=== PATIENT | female | born 1995 | race Caucasian/White ===

== ENCOUNTER 2023-12-08 16:07 | Outpatient (OUT) | payer OTHER, SELFPAY ==
[2023-12-08 16:31] LABS: Basophils Percent Auto 0.4 % (0.2-2.0); Eosinophils Absolute Auto 0.2 10^3/uL (0.0-0.7); Eosinophils Percent Auto 2.8 % (0.9-7.0); Hematocrit 39.1 % (36.0-48.0); Hemoglobin 12.9 g/dL (12.0-16.0); Immature Granulocytes Abs Auto 0.02 10^3/uL (0.00-0.03); Immature Granulocytes Pct Auto 0.2 % (0.0-0.5); Lymphocytes Absolute Auto 1.6 10^3/uL (1.2-3.8); Lymphocytes Percent Auto 19.2 % (20.5-60.0); Mean Corpuscular Hemoglobin 28.5 pg (26.7-34.0); Mean Corpuscular Volume 86.3 fL (81.0-99.0); Mean Platelet Volume 10.7 fL (9.5-13.5); Monocytes Absolute Auto 0.6 10^3/uL (0.3-0.8); Monocytes Percent Auto 6.8 % (1.7-12.0); Neutrophils Percent Auto 70.6 % (43.0-75.0); Platelet Count 228 10^3/uL (150-450); Red Blood Count 4.53 10^6/uL (4.20-5.40); Red Cell Distribution Width 12.2 % (11.0-15.0); White Blood Count 8.5 10^3/uL (4.0-11.0)
[2023-12-08 16:58] LABS: HCG Quantitative <1 mIU/mL; Thyroid Stimulating Hormone 1.457 uIU/mL (0.358-3.740)
[2023-12-08 17:01] LABS: Estimated Average Glucose 105 mg/dL; Glycohemoglobin A1C 5.3 % (4.5-6.2)
[2023-12-08 17:17] LABS: Free T4 0.98 ng/dL (0.76-1.46)
[2023-12-10 08:10] LABS: FSH 4.5 mIU/mL (.); Luteinizing Hormone(LH) 4.7 mIU/mL (.)
[2023-12-15 01:07] LABS: DHEA, Serum 111 ng/dL (31-701)
== END 2023-12-08 16:08 | disposition home or self-care (01) ==
LOC: LAB 16:12
PROVIDERS: PCP Nurse Practitioner; Visit Provider Obstetrics & Gynecology
DX: Z01.419 Encounter for gynecological examination (general) (routine) without abnormal findings (principal); E34.9 Endocrine disorder, unspecified
CPT/HCPCS: 36415; 82626; 82627; 83001; 83002; 83036; 84439; 84443; 84702; 85025; G0145

== ENCOUNTER 2023-12-08 19:43 | Outpatient (REF) | payer OTHER, SELFPAY ==
[2023-12-12 14:09] LABS: Age Gdln ACOG Testing Note (.); IGP, rfx Aptima HPV ASCU Note (.)
== END 2023-12-08 19:44 | disposition home or self-care (01) ==
LOC: LAB 19:43
PROVIDERS: PCP Nurse Practitioner; Visit Provider Physician Assistant
DX: Z01.419 Encounter for gynecological examination (general) (routine) without abnormal findings (principal)
CPT/HCPCS: G0145

== ENCOUNTER 2024-03-24 12:43 | Outpatient (OUT) | payer OTHER, SELFPAY ==
--- OUTSIDE RECORDS SUMMARY | 2024-03-24 12:51 | XMS_ITS | CCD ---
Author Organization [facility] Inform ion Partnership [facility] Care Team Providers Care Base Ply Hand Name Role Phone bJ Llamas Unavailable Unavailable NONE, XXXX Unavailable Unavailable Jb Llamas Unavailable Unavailable NONE, XXXX Unavailable Unavailable Elle Ray Unavailable Antonella Petersen Unavailable REQUEST, DR STEIN LISTED Primary Care Unavaila nettie AYALA, DR VICKERS Attending Unavailable CHET, DR VICKERS Consulting Unavailable CHET, DR VICKERS Admitting Unavailable Unavailable Primary Care Provider UnavailROSA Aguilar Attending Unavailable LIBIA GUTHRIE Attending Unavailable LIBIA GUTHRIE Attending Unavailable Allergies Allergy Classification Reported Allergen(s) Allergy Type Date of Onset Reaction(s) Facility (2 sources) Penicillin V Drug Allergy [facility] Other (5 sources) Penicillins Propensity to adverse reactions 3 [facility] Healthcare (4 sources) Penicillin G Drug Allergy 4 [facility] Healthcare Medications Current Medications Medication Drug Class(es) Dates Sig (Normalized) Sig (Original) Ethinyl Estradiol / Ferrous fumarate / Norethindrone (7 sources) Estrogen Start: 12-08-2023 End: 12-07-2024 take 1 tablet by mouth in the morning norethindrone-ethin yl estradiol-iron (Lo Loestrin Fe) 1 MG-10 MCG / 10 MCG tablet Indications: Encounter for surveillance of contraceptive pills Take 1 tablet by mouth in the morning. 28 tablet 11 12/08/2023 12/07/2024 Active Start: 12-01-2023 End: 12-08-2023 take 1 tablet by mouth in the morning norethindrone-ethinyl estradiol-iron (Lo Loestrin Fe) 1 MG-10 MCG / 10 MCG tablet Indications: Encounter for surveillance of contraceptive pills Take 1 tablet by mouth in the morning. 28 tablet 3 12/01/2023 12/08/2023 Discontinued (Reorder) Start: 12-01-2023 End: 03-22-2024 take 1 tablet by mouth in the morning norethindrone-ethinyl estradiol-iron (Lo Loestrin Fe) 1 MG-10 MCG / 10 MCG tablet Indications: Encounter for surveillance of contraceptive pills Take 1 tablet by mouth in the morning. 28 tablet 3 12/01/2023 03/22/2024 Active methylPREDNISolone 4 mg oral tablet (3 sources) Corticosteroid Start: 05-28-2022 methylPREDNISolone 4 MG as directed Orally for daily dose take half with breakfast, half with dinner for 6 days May, Active omeprazole 20 mg delayed release oral capsule (5 sources) Proton Pump Inhibitor Start: 11-17-2023 End: 02-15-2024 take 1 capsule by mouth in the morning omeprazole (PriLOSEC) [address] capsule Indications: Gastro-esophageal reflux disease without esophagitis Take 1 capsule (20 mg) by mouth in the morning. 90 capsule 0 11/17/2023 02/15/2024 Active Completed/Discontinued Medications Medication Drug Class(es) Dates Sig (Normalized) Sig (Original) Dexamethasone (2 sources) Corticosteroid Start: 05-28-2022 DEXAMETHASONE May, 6 mg Problems Active Problems Problem Classification Problem Date Documented Date Episodic/Chronic Contraceptive and procreative management (2 sources) Oral contraception; Translations: [Encounter for surveillance of contraceptive pills] 12-08-2023 Episodic Esophageal disorders (10 sources) Gastroesophageal reflux disease without esophagitis; Translations: [Gastro-esophageal reflux disease without esophagitis] Onset: 11-17-2023 11-17-2023 Chronic Immunizations and screening for infectious disease (3 sources) Encounter for screening for human papillomavirus (HPV); Translations: [Exposure to sexually transmissible disorder] Onset: 09-02-2022 12-01-2023 Episodic Other female genital disorders (2 sources) Vaginal discharge; Translations: [Other specified noninflammatory disorders of vagina] 12-01-2023 Episodic Other screening for suspected conditions (not mental disorders or infectious disease) (4 sources) Encounter for screening for malignant neoplasm of cervix; Translations: [ENC SCREENING MALIG NEOPLASM CERV] Onset: 08-29-2022 Episodic Past or Other Problems Problem Classification Problem Date Documented Da te Episodic/Chronic Allergic reactions (1 source) Allergic contact dermatitis due to plants, except food Onset: 05-28-2022 Resolved: 05-28-2022 Episodic Results Test Name Value Interpretation Reference Range Facility URETHRITIS/DISCHARGE PLUS VA GINITIS (HTRX)on 12-10-2023 [facility]INAE 0 [facility] ATOPOBIUM VAGINAE Not detected [facility] BVAB 2,3 (BACTERIAL VAGINOSIS ASSOCIATED BACTERIA 2, 3); MOBILUNCUS SPP [address] [facility] BVAB 2,3 (BACTERIAL VAGINOSIS ASSOCIATED BACTERIA 2, 3); MOBILUNCUS SPP Not detected [facility] ROSALINDA ALBICANS, PARAPSILOSIS, TROPICALIS [address] [facility] ROSALINDA ALBICANS, PARAPSILOSIS, TROPICALIS Not detected [facility] ROS[facility]DA GL[facility]ATA 0 [facility] ROSALINDA GLABRATA Not detected [facility] ealthcare ROSALINDA KRUSEI 0 [facility] ROSALINDA KRUSEI Not detected [facility] CHLAMYDIA TRACHOMATIS [facility] CHLAMYDIA TRACHOMATIS Not detected [facility] GARDNERELLA VAGINALIS [address] [facility] GARDNERELLA VAGINALIS Not detected [facility] MEGASPHAERA (TYPES 1, 2) [address] [facility] MEGASPHAERA (TYPES 1, 2) Not detected [facility] MYCOPLASMA GENITALIUM [address] [facility] MYCOPLASMA GENITALIUM Not detected [facility] NEISSERIA GONORRHOEAE [address] [facility] NEISSERIA GONORRHOEAE Not detected [facility] TRICHOMONAS VAGINALIS [address] [facility] TRICHOMONAS VAGINALIS Not detected [facility] Health[facility] e ALL CBC WITH AUTO DIFFon BASOPHILS ABSOLUTE AUTO 0.[address] [facility] Basophils/100 WBC (Bld) 0.4 % 0.2 - 2.0 % [facility] Eosinophils/100 WBC (Bld) 2.8 % 0.9 - 7.0 % [facility] Erythrocyte distribution width (RBC) [Ratio] 12.2 % 11.0 - 15.0 % [facility] Hematocrit (Bld) [Volume fraction] 39.1 % 36.0 - 48.0 % [facility] Healthcar e Hemoglobin (Bld) [Mass/Vol] 12.9 g/dL 12.0 - 16.0 g/dL [facility] IMMATURE GRANULOCYTES ABS AUTO 0.02 [facility] Immature granulocytes/100 WBC (Bld) 0.2 % 0.0 - 0.5 % [facility] Interpretation and review of laboratory results Abnormal [facility] LYMPHOCYTES ABSOLUTE AUTO 1.6 [facility] Lymphocytes/100 WBC (Bld) 19.2 % Low 20.5 - 60.0 % [facility] MCH (RBC) [Entitic mass] 28.5 pg 26.7 - 34.0 pg [facility] MCHC (RBC) [Mass/Vol] 33.0 g/dL 29.9 - 35.2 g/dL [facility] MCV (RBC) [Entitic vol] 86.3 fL 81.0 - 99.[address] [facility] MONOCYTES ABSOLUTE AUTO 0.[address] [facility] Monocytes/100 WBC (Bld) 6.8 % 1.7 - 12.0 % [facility] NEUTROPHILS ABSOLUTE AUTO 6.[address] [facility] Neutrophils/100 WBC (Bld) 70.6 % 43.0 - 75.0 % [facility] Platelet mean volume (Bld) [Entitic vol] 10.7 fL 9.5 - 13.5 fL [facility] Healthc are [facility] EO # 0.2 [facility] PLT 228 [facility] RBC 4.53 [facility] WBC 8.5 [facility] PAP ACOG PANEL 2: 21 to 29on 09-06-2022 . . Normal [facility] Comment on above: Result Comment: Perf ormed at: BA Performed By: #### [id number] #### [facility] [address] [address] [address] Chloe Franklin Age Gdln ACOG Testing - Normal [facility] Comment on above: Performed By: #### [id number] #### [facility] [id number] Chloe Franklin DIAGNOSIS: Comment [facility] Comment on above: Result Comment: NEGA TIVE FOR INTRAEPITHELIAL LESION OR MALIGNANCY. Performed at: BA Performed By: #### [id number] #### [facility] [address] [address] [address] Chloe Franklin Methodology: Comment [facility] Comment on above: Result Comment: This liquid based ThinPrep(R) pap test was screened with the use of an image guided system. Performed at: WB Performed By: #### [id number] #### [facility] [address] [place] [address] Dr. Chloe Franklin Note: Comment Normal [facility] Comment on above: Result Comment: The Pap smear is a screening test designed to aid in the detection of premalignant and malignant conditions of the uterine cervix. It is not a diagnostic procedure and should not be used as the sole means of detecting cervical cancer. Both false-positive and false-negative reports do occur. . Performed at: WB Performed By: #### [id number] #### [facility] [address] [place] [address] Dr. Chloe Franklin Performed by: Comment Normal [facility] Comment on above: Result Comment: Carlton Cole, Small Craft Operator (ASCP) Performed at: BA Performed By: #### [id number] #### [facility] [address] [place] [address] Dr. Chloe Franklin Reflex Criteria: Comment Normal [facility] Comment on above: Result Comment: The HPV DNA reflex criteria were not met with this specimen result therefore, no HPV testing was performed. . Performed at: BA Performed By: #### [id number] #### [facility] [address] [place] [address] Dr. Chloe Franklin Specimen adequacy: Comment Normal [facility] Comment on above: Result Comment: Sati sfactory for evaluation. Endocervical and/or squamous metaplastic cells (endocervical component) are present. Performed at: BA Performed By: #### [id number] #### [facility] [address] [place] [address] Dr. Chloe Franklin Vital Signs Date Time Vital Sign Value Performing Clinician Facility 12-08-2023 15:32-0500 Body mass index (BMI) [Ratio] 25.25 kg/m2 Rosa CRENSHAW Work Phone: [facility] 12-08-2023 15:32-0500 Body weight 66.73 kg Rosa CRENSHAW Work Phone: [facility] 12-08-2023 15:32-0500 Diastolic blood pressure 74 mm[Hg] Rosa CRENSHAW Work Phone: [facility] 12-08-2023 15:32-0500 Systolic blood pressure 116 mm[Hg] Rosa CRENSHAW Work Phone: [facility] 05-28-2022 18:10-0400 Body height 162.56 cm Elle Ray Other [facility] Other 05-28-2022 18:10-0400 Body mass index (BMI) [Ratio] 24.89 kg/m2 Elle Ray Other [facility] Other 05-28-2022 18:10-0400 Body temperature 98.9 [degF] Elle Ray Other [facility] Other 05-28-2022 18:10-0400 Body weight 65.77 kg Elle Ray Other [facility] Other 05-28-2022 18:10-0400 Respiratory rate 18 /min Elle Ray Other [facility] Other 05-28-2022 18:10-0400 SaO2% (BldA) [Mass fraction] 97 % Elle Ray Other [facility] Other Encounters Encounter Date Encounter Type Care Provider Facility Start: 03-17-2024 End: 03-17-2024 ambulatory LIBIA AICHHOLZ Not Available Start: 01-29-2024 End: 01-29-2024 ambulatory LIBIA AICHHOLZ Not Available Start: 12-08-2023 End: 12-08-2023 ambulatory ROSA PEARL Not Available Start: 12-08-2023 End: 12-08-2023 Patient encounter procedure Rosa CRENSHAW Work Phone: [facility] Work Phone: Start: 12-08-2023 End: 12-08-2023 Periodic preventive med est patient 18-39 yrs Rosa CRENSHAW Work Phone: [facility] Comment on above: Well woman exam with routine gynecological exam; Vaginal discharge; STD exposure; Encounter for surveillance of contraceptive pills Start: 12-08-2023 [facility] Result Encounter Generic External Data Provider [facility] Unsolicited Start: 12-08-2023 [facility] Result Encounter Generic External Data Provider [facility] Unsolicited Start: 12-08-2023 External Result Encounter Rosa CRENSHAW Work Phone: [facility] Unsolicited Start: 12-05-2023 Chart abstracting Rosa CRENSHAW Work Phone: [facility] Start: 08-29-2022 End: 08-29-[address] NONE LISTED REQUEST Facility: Start: 06-08-2022 End: 06-08-2022 ambulatory Antonella Petersen Other [facility] Other Start: 06-08-2022 Telephone encounter Antonella Petersen [facility] Start: 05-28-2022 End: 05-28-2022 ambulatory Elle Ray Other [facility] Other Start: 05-28-2022 Office outpatient ne w 20 minutes Elle Ray [facility] Start: 12-02-2017 End: 12-03-2017 Ambulatory Jb Otilio Facility:[id number] Procedures Date Procedure Procedure Detail Performing Clinician Start: 12-08-2023 ALL CBC WITH AUTO DIFF Gab Sanderso DO Work Phone: Start: 12-08-2023 URETHRITIS/DISCHARGE PLUS VAGINITIS (HTRX) Rosa CRENSHAW Work Phone: Plan of Treatment Date Care Activity Detail Author Start: 12-08-2023 End: 12-08-2023 Patient encounter procedure 12/08/2023 3:00 PM EST Office Visit [facility] [address] [place] [id number] Rosa Pearl PA [address] [place] [address] Well woman exam with routine gynecological exam; Vaginal discharge; STD exposure [facility] Comment on above: Well woman exam with routine gynecological exam; Vaginal discharge; STD exposure CHLAMYDIA TRACHOMATI S (GENITO/STI) CHLAMYDIA TRACHOMATIS (GENITO/STI) Lab Routine STD exposure Ordered: 12/08/[address] [facility] Comment on above: Ordered: 12/08/2023 Cytology Cervical or vaginal smear or scraping study Pap Smear Pathology and Cytology Routine Well woman exam with routine gynecological exam Ordered: 12/08/[address] [facility] Comment on above: Ordered: 12/08/2023 Neisseria gonorrhoea e DNA [Presence] in Unspecified specimen by ANTHONY with probe detection Neisseria gonorrhea DNA probe, direct Lab Routine STD exposure Ordered: 12/08/[address] [facility] Comment on above: Ordered: 12/08/2023 SURESWAB(R) ADVANCED VAGINITIS PLUS, TMA SURESWAB(R) ADVANCED VAGINITIS PLUS, TMA Pathology and Cytology Routine Vaginal discharge Ordered: 12/08/[address] [facility] Work Phone: Comment on above: Ordered: 12/08/2023 Payers Date Payer Category Payer Medicaid [employer] [place] [employer] [id number] 2022-Present [address] [place] [address] [id number] 1995 Unknown [id number] 1997 Unknown [id number] 1997 Unknown [id number] 1997 Unknown [id number] 1959 Unknown [id number] Social History Date Type Detail Facility Start: 04-23-2023 End: 08-22-2023 Sex Assigned At [facility] [email or web address] Other Start: 04-23-2023 [facility] Start: 08-22-2023 End: 12-08-2023 Alcohol intake Lifetime non-drinker (finding) [facility] Start: 04-23-2023 End: 08-22-2023 History of Social function [facility] Start: 04-23-2023 Education 13 [facility] Start: 04-23-2023 Alcohol Comment caffeine:none [facility] Start: 1995 Sex Assigned At Female [facility] Start: 04-23-2023 Gender identity Identifies as female gender (finding) [facility] Healthcare History of Present illness Narrative 12-08-2023 DEN Patiño - 12/08/2023 3:00 PM EST Note Date & Type Note Facility 12-08-2023 History of Presen t illness Narrative Reason for Appointment: Patient ID: Thomas López is a 28 y.o. female who presents for Well Women Visit and STI Screening Patient presents today for Annual Exam appointment. Current Medications: has a current medication list which includes the following prescription(s): lo loestrin fe and omeprazole. Medical History: Active Ambulatory Problems Diagnosis Date Noted Gastroesophageal reflux disease without esophagitis 11/17/2023 Gastro-esophageal reflux disease without esophagitis 11/17/2023 Resolved Ambulatory Problems Diagnosis Date Noted No Resolved Ambulatory Problems Past Medical History: Diagnosis Date Dysfunctional uterine bleeding Hemorrhoids History of medical treatment Ovarian cyst Pelvic congestion Seasonal allergies Family History Problem Relation Name Age of Onset Cervical cancer Mother Bipolar disorder Father Mental illness Father Mental illness Sister Bipolar disorder Sister Bipolar disorder Brother Mental illness Brother Skin cancer Maternal Grandmother Thyroid disease Maternal Grandmother Eczema Maternal Grandfather Stroke Maternal Grandfather Social History Tobacco Use Smoking status: Never Smokeless tobacco: Not on file Substance Use Topics Alcohol use: Never Comment: caffeine:none Drug use: Never History reviewed. No pertinent surgical history. Allergies Allergen Reactions Penicillin G Other Reaction(s): unknown Penicillins Review of Systems: Review of Systems Constitutional: Negative. HENT: Negative. Eyes: Negative. Respiratory: Negative. Cardiovascular: Negative. Gastrointestinal: Negative. Genitourinary: Negative. Musculoskeletal: Negative. Skin: Negative. Neurological: Negative. All other systems reviewed and are negative. Hematological: Negative. Endocrine: Negative. Allergic/Immunologic: Negative. Objective Physical Exam Constitutional: Appearance: Normal appearance. She is well-developed. Genitourinary: Vulva normal. Right Adnexa: not tender and no mass present. Left Adnexa: not tender and no mass present. No cervical discharge. Breasts: Breasts are soft. Right: Normal. Left: Normal. HENT: Head: Normocephalic. Nose: Nose normal. Mouth/Throat: Mouth: Mucous membranes are moist. Cardiovascular: Rate and Rhythm: Normal rate and regular rhythm. Pulmonary: Effort: Pulmonary effort is normal. Breath sounds: Normal breath sounds. Abdominal: General: Bowel sounds are normal. There is no distension. Palpations: Abdomen is soft. Tenderness: There is no abdominal tenderness. There is no guarding or rebound. Musculoskeletal: General: No swelling. Normal range of motion. Cervical back: Normal range of motion. Right lower leg: No edema. Left lower leg: No edema. Neurological: General: No focal deficit present. Mental Status: She is alert and oriented to person, place, and time. Skin: General: Skin is warm and dry. Psychiatric: Mood and Affect: Mood normal. Behavior: Behavior normal. Vitals and nursing note reviewed. Exam conducted with a meter tester polyphase present. Vitals: Estimated body mass index is 25.25 kg/m as calculated from the following: Height as of 04/24/23: 5' 4 . Weight as of this encounter: 147 lb 1.9 oz. BP: 116/74 No LMP recorded. Assessment/Plan Encounter Diagnoses Name Primary? Well woman exam with routine gynecological exam Vaginal discharge STD exposure Encounter for surveillance of contraceptive pills Patient presents today for an annual exam. Patient states she is doing well and has no complaints. Pap was obtained without difficulty. Cultures obtained without difficulty Follow Up: Patient is to return in one year for annual unless needed otherwise. Documented by Radha Jameson LPN on behalf of: DEN Patiño documented in this encounter [facility] Evaluation note 05-28-2022 Note Date & Type Note Facility 05-28-2022 Evaluation note Encounter Date Diagnosis Assessment Notes May, Poison cecilio dermatitis (ICD-10 - L23.7) Decadron IM given in office today due to moderate nature of discomfort. Take medications as directed and start tomorrow. Complete all doses. Wash all belongings that came in contact with plant oils in diluted dishwashing liquid. May try to use Calamine lotion and OTC Zyrtec for symptom relief. Follow up with primary care provider or dermatology if symptoms do not improve or worsen with treatment [facility] [employer] Other Evaluation note Note Date & Type Note Facility Evaluation note No Information [facility] [employer] Other Evaluation note Note Date & Type Note Facility Evaluation note Diagnosis Well woman exam with routine gynecological exam Routine gynecological examination Vaginal discharge Leukorrhea, not specified as infective STD exposure Encounter for surveillance of contraceptive pills documented in this encounter [facility] Summary Purpose Family History No Family History Records FoundNo Family History Records FoundNo Family History Records Found Advance Directives No Advanced Directives Records FoundNo Advanced Directives Records FoundNo Advanced Directives Records Found Additional Source Comments INFORMATION SOURCE (unrecogn ized section and content) DATE CREATED AUTHOR 04/20/2018 [facility] DATE CREATED AUTHOR AUTHOR'S ORGANIZ ATION 09/06/2022 [facility] DATE CREATED AUTHOR AUTHOR'S ORGANIZ ATION 03/20/2024 [facility] EPIC REASON FOR VISIT (unrecogniz ed section and content) Reason Comments Well Women Visit STI Screening FOR RECORDS PERTAINING TO PATIENTS WHO ARE OR HAVE BEEN ENROLLED IN A CHEMICAL DEPENDENCY/SUBSTANCEABUSE PROGRAM, SOME INFORMATION MAY BE OMITTED. This clinical summary was aggregated from multiple sources. Caution should be exercised in using it in the provision of clinical care. This summary normalizes information from multiple sources, and as a consequence, information in this document may materially change the coding, format and clinical context of patient data. In addition, data may be omitted in some cases. CLINICAL DECISIONS SHOULD BE BASED ON THE PRIMARY CLINICAL RECORDS. [employer] provides no warranty or guarantee of the accuracy or completeness of information in this document.
--- NOTE | 2024-03-24 13:02 | XR_ITS ---
The [address] [address] Patient Name: SHERICE BLACKWELL MRN: [id number] date: 1995 Sex: F Assigned Patient Location: LAB Current Patient Location: LAB Accession/Order Number: [id number] Exam Date: 03/24/2024 13:05 Report Date: 03/24/2024 15:48 At the request of: LIBIA GUTHRIE Procedure: XR chest 2V EXAM: XR chest 2V HISTORY: Unintentional Weight Loss Of More Than 10 Pounds COMPARISON: 06/05/2021 TECHNIQUE: Upright PA and lateral chest x-ray FINDINGS: The heart is not enlarged and the vasculature is not distended. No acute infiltrate, effusion or pneumothorax is identified. The osseous structures are grossly intact. Nipple jewelry is now noted. XR/XR chest 2V IMPRESSION: No acute infiltrate or evidence of cardiac decompensation. The overall appearance of the chest is essentially unchanged. Electronically authenticated by: RUFINA DAMIAN Date: 03/24/2024 15:48
[2024-03-24 13:36] LABS: Basophils Percent Auto 0.4 % (0.2-2.0); Eosinophils Percent Auto 0.4 % (0.9-7.0); Hematocrit 41.6 % (36.0-48.0); Hemoglobin 13.5 g/dL (12.0-16.0); Lymphocytes Absolute Auto 1.2 10^3/uL (1.2-3.8); Lymphocytes Percent Auto 21.5 % (20.5-60.0); Mean Corpuscular HGB Conc 32.5 g/dL (29.9-35.2); Mean Corpuscular Hemoglobin 28.5 pg (26.7-34.0); Mean Corpuscular Volume 87.9 fL (81.0-99.0); Mean Platelet Volume 11.4 fL (9.5-13.5); Monocytes Absolute Auto 0.3 10^3/uL (0.3-0.8); Monocytes Percent Auto 4.7 % (1.7-12.0); Neutrophils Absolute Auto 4.1 10^3/uL (1.4-6.5); Platelet Count 241 10^3/uL (150-450); Red Blood Count 4.73 10^6/uL (4.20-5.40); Red Cell Distribution Width 12.9 % (11.0-15.0); White Blood Count 5.6 10^3/uL (4.0-11.0)
[2024-03-24 13:41] LABS: HCG Qualitative Urine* NEGATIVE (NEGATIVE); Internal Control Within Normal Limits
[2024-03-24 13:44] LABS: Bilirubin Urine NEGATIVE (NEGATIVE); Blood Urine NEGATIVE (NEGATIVE); Clarity Urine CLEAR (CLEAR); Color Urine LT. YELLOW (YELLOW); Glucose Urine UA NEGATIVE (NEGATIVE); Ketones Urine 15 mg/dL (NEGATIVE); Leukocyte Esterase Urine TRACE (NEGATIVE); Nitrite Urine NEGATIVE (NEGATIVE); Protein Urine NEGATIVE (NEG/TRACE); Urobilinogen Urine 0.2 EU/dL (0.2-1.0)
[2024-03-24 13:45] LABS: Urine Microscopic Indicated YES
[2024-03-24 13:48] LABS: Erythrocyte Sedimentation Rate 26 mm/hr (<=20)
[2024-03-24 14:08] LABS: Bacteria Urine NONE SEEN #/HPF (NONE SEEN); Mucus Urine NONE SEEN (NONE SEEN); RBC Urine NONE SEEN #/HPF (0-2); Squamous Epithelial Cell Urine FEW #/LPF (NONE/RARE)
[2024-03-24 15:11] LABS: Free T4 1.11 ng/dL (0.76-1.46)
[2024-03-24 15:22] LABS: Alanine Aminotransferase 20 U/L (14-59); Albumin Globulin Ratio 0.9; Albumin Level 4.3 g/dL (3.4-5.0); Alkaline Phosphatase 46 U/L (46-116); Anion Gap 13.4; Aspartate Amino Transferase 16 U/L (15-37); BUN Creatinine Ratio 10.8; Bilirubin Total 1.1 mg/dL (0.2-1.0); C Reactive Protein <0.50 mg/dL (<=0.50); Calcium 9.3 mg/dL (8.5-10.1); Chloride 99 mmol/L (98-107); Estimated GFR (African America >60 (>=60); Estimated GFR (Non-African Ame >60 (>=60); Free T3 2.51 pg/mL (2.18-3.98); Globulin 4.6 g/dL; Glucose 80 mg/dL (74-106); Potassium 3.4 mmol/L (3.5-5.1); Sodium 138 mmol/L (136-145); Thyroid Stimulating Hormone 1.198 uIU/mL (0.358-3.740); Total Protein 8.9 g/dL (6.4-8.2)
[2024-03-25 17:10] LABS: Thyroglobulin Antibody <1.0 IU/mL (0.0-0.9); Thyroid Peroxidase (TPO) Ab 16 IU/mL (0-34)
== END 2024-03-24 12:44 | disposition home or self-care (01) ==
LOC: LAB 12:45
PROVIDERS: PCP Nurse Practitioner; Visit Provider Nurse Practitioner
DX: R63.4 Abnormal weight loss (principal)
CPT/HCPCS: 36415; 71046; 80053; 81001; 84439; 84443; 84481; 84703; 85025; 85652; 86140; 86376; 86800

== ENCOUNTER 2024-05-14 15:42 | Outpatient (OUT) | payer OTHER, SELFPAY ==
--- OUTSIDE RECORDS SUMMARY | 2024-05-14 15:48 | XMS_ITS | CCD ---
Author Organization [facility] Care Team Providers Care Casting Wheel Operator Helper Name Role Phone Jb Llamas Unavailable Unavailable NONE, XXXX Unavailable [...] Facility (2 sources) Penicillin V Drug Allergy Automation [facility] [facility] Other (5 sources) Penicillins Propensity to adverse reactions 3 [facility] Healthcare (4 sources) Penicillin G Drug Allergy [address] [facility] Healthcare Medications Current Medications Medication Drug Class(es) [...] VA GINITIS (HTRX)on 12-10-2023 [facility] ATOPOBIUM VAGINAE Not detected [facility] BVAB 2,3 (BACTERIAL VAGINOSIS ASSOCIATED BACTERIA 2, 3); MOBILUNCUS SPP 0 [facility] BVAB 2,3 (BACTERIAL VAGINOSIS ASSOCIATED BACTERIA 2, 3); MOBILUNCUS SPP Not detected [facility] ROSALINDA ALBICANS, PARAPSILOSIS, TROPICALIS 0 [facility] ROSALINDA ALBICANS, PARAPSILOSIS, TROPICALIS Not detected [facility] ROSALINDA GLABRATA [address] [facility] Hea lthcare ROSALINDA GLABRATA Not detected [facility] ealthcare [facility] ROSALINDA KRUSEI Not detected [facility] CHLAMYDIA TRACHOMATIS 0 [facility] CHLAMYDIA TRACHOMATIS Not detected [facility] GARDNERELLA VAGINALIS 0 [facility] GARDNERELLA VAGINALIS Not detected [facility] MEGASPHAERA (TYPES 1, 2) 0 [facility] MEGASPHAERA (TYPES 1, 2) Not detected [facility] MYCOPLASMA GENITALIUM 0 [facility] MYCOPLASMA GENITALIUM Not detected [facility] NEISSERIA GONORRHOEAE 0 [facility] NEISSERIA GONORRHOEAE Not detected [facility] TRICHOMONAS VAGINALIS 0 [facility] TRICHOMONAS VAGINALIS Not detected [facility] e ALL CBC WITH AUTO DIFFon BASOPHILS ABSOLUTE AUTO 0.0 [facility] Basophils/100 WBC (Bld) 0.4 % 0.2 - 2.0 % [facility] Eosinophils/100 WBC (Bld) 2.8 % 0.9 - 7.0 % [facility] Erythrocyte distribution width (RBC) [Ratio] 12.2 % 11.0 - 15.0 % [facility] Hematocrit (Bld) [Volume fraction] 39.1 % 36.0 - 48.0 % [facility] Healthcar e Hemoglobin (Bld) [Mass/Vol] 12.9 g/dL 12.0 - 16.0 g/dL [facility] IMMATURE GRANULOCYTES ABS AUTO 0.02 [facility] Immature granulocytes/100 WBC (Bld) 0.2 % 0.0 - 0.5 % [facility] Interpretation and review of laboratory results Abnormal [facility] LYMPHOCYTES ABSOLUTE AUTO 1.6 [facility] Lymphocytes/100 WBC (Bld) 19.2 % Low 20.5 - 60.0 % [facility] MCH (RBC) [Entitic mass] 28.5 pg 26.7 - 34.0 pg [facility] MCHC (RBC) [Mass/Vol] 33.0 g/dL 29.9 - 35.2 g/dL [facility] MCV (RBC) [Entitic vol] 86.3 fL 81.0 - 99.0 fL [facility] MONOCYTES ABSOLUTE AUTO 0.6 [facility] Monocytes/100 WBC (Bld) 6.8 % 1.7 - 12.0 % [facility] NEUTROPHILS ABSOLUTE AUTO 6.0 [facility] Neutrophils/100 WBC (Bld) 70.6 % 43.0 - 75.0 % [facility] Platelet mean volume (Bld) [Entitic vol] 10.7 fL 9.5 - 13.[address] [facility] Healthc are [facility] EO # 0.2 [facility] PLT 228 [facility] RBC 4.53 [facility] WBC 8.5 [facility] PAP ACOG PANEL 2: 21 to 31on 09-06-2022 . . Normal [facility] Comment on above: Result Comment: Perf ormed at: BA Performed By: #### [id number] #### [facility] [address] [address] [address] Chloe Franklin Age Gdln ACOG Testing - Normal [facility] Comment on above: Performed By: #### [id number] #### [facility] [address] [address] [address] Chloe Franklin DIAGNOSIS: Comment Normal [facility] Comment on above: Result Comment: NEGA TIVE FOR INTRAEPITHELIAL LESION OR MALIGNANCY. Performed at: BA Performed By: #### [id number] #### [facility] [address] [address] [address] Chloe Franklin Methodology: Comment [facility] Comment on above: Result Comment: This liquid based ThinPrep(R) pap test was screened with the use of an image guided system. Performed at: WB Performed By: #### [id number] #### [facility] [address] [place] [address] Dr. Chloe Franklin Note: Comment Normal [facility] Comment on above: Result Comment: The Pap smear is a screening test designed to aid in the detection of premalignant and malignant conditions of the uterine cervix. It is not a diagnostic procedure and should not be used as the sole means of detecting cervical cancer. Both false-positive and false-negative reports do occur. . Performed at: WB Performed By: #### [id number] #### [facility] [address] [place] [address] Dr. Chloe Franklin Performed by: Comment Normal [facility] Comment on above: Result Comment: Carlton Cole, Street Photographer (ASCP) Performed at: BA Performed By: #### [id number] #### [facility] [address] [place] [address] Dr. Chloe Franklin Reflex Criteria: Comment Normal [facility] Comment on above: Result Comment: The HPV DNA reflex criteria were not met with this specimen result therefore, no HPV testing was performed. . Performed at: BA Performed By: #### [id number] #### [facility] [address] [place] [address] Dr. Chloe Franklin Specimen adequacy: Comment Normal [facility] Comment on above: Result Comment: Sati sfactory for evaluation. Endocervical and/or squamous metaplastic cells (endocervical component) are present. Performed at: BA Performed By: #### [id number] #### [facility] [address] [place] [address] Dr. Chloe Franklin Vital Signs Date Time Vital Sign Value Performing Clinician Facility 12-08-2023 15:32-0500 Body mass index (BMI) [Ratio] 25.25 kg/m2 Rosa CRENSHAW Work Phone: [facility] 12-08-2023 15:32-0500 Body weight 66.73 kg Rosa CRENSHAW Work Phone: [facility] 12-08-2023 15:32-0500 Diastolic blood pressure 74 mm[Hg] Rosa CRENSHAW Work Phone: [facility] 12-08-2023 15:32-0500 Systolic blood pressure 116 mm[Hg] Rosa CRENSHAW Work Phone: [facility] [employer] 05-28-2022 18:10-0400 Body height 162.56 cm Elle Ray Other [employer] Other 05-28-2022 18:10-0400 Body mass index (BMI) [Ratio] 24.89 kg/m2 Elle Ray Other [employer] Other 05-28-2022 18:10-0400 Body temperature 98.9 [degF] Elle Ray Other [employer] Other 05-28-2022 18:10-0400 Body weight 65.77 kg Elle Ray Other [employer] Other 05-28-2022 18:10-0400 Respiratory rate 18 /min Elle Ray Other [employer] Other 05-28-2022 18:10-0400 SaO2% (BldA) [Mass fraction] 97 % Elle Ray Other [employer] Other Encounters Encounter Date Encounter Type Care [...] 06-08-2022 End: 06-08-2022 ambulatory Antonella Petersen Other [employer] Other Start: 06-08-2022 Telephone encounter Antonella Petersen [facility] [address] Start: 05-28-2022 End: 05-28-2022 ambulatory Elle Ray Other [employer] Other Start: 05-28-2022 Office outpatient ne w 20 minutes Elle Ray [facility] Start: 12-02-2017 End: 12-03-2017 Ambulatory Jb Muriel Facility:[id number] Procedures Date Procedure Procedure Detail Performing Clinician Start: 12-08-2023 ALL CBC WITH AUTO DIFF Gab Chet DO Work Phone: Start: 12-08-2023 URETHRITIS/DISCHARGE PLUS VAGINITIS (HTRX) Rosa CRENSHAW Work Phone: Plan of Treatment Date Care Activity Detail Author Start: 12-08-2023 End: 12-08-2023 Patient encounter procedure 12/08/2023 3:00 PM EST Office Visit [facility] [address] [place] [id number] Rosa Pearl PA [address] [place] [address] Well woman exam with routine gynecological exam; Vaginal discharge; STD exposure [facility] OB Comment on above: Well woman exam with routine gynecological exam; Vaginal discharge; STD exposure CHLAMYDIA TRACHOMATI S (GENITO/STI) CHLAMYDIA TRACHOMATIS (GENITO/STI) Lab Routine STD exposure Ordered: 12/08/2023 [facility] Comment on above: Ordered: 12/08/2023 Cytology Cervical or vaginal smear or scraping study Pap Smear Pathology and Cytology Routine Well woman exam with routine gynecological exam Ordered: 12/08/2023 [facility] Comment on above: Ordered: 12/08/2023 Neisseria gonorrhoea e DNA [Presence] in Unspecified specimen by ANTHONY with probe detection Neisseria gonorrhea DNA probe, direct Lab Routine STD exposure Ordered: 12/08/2023 [facility] Comment on above: Ordered: 12/08/2023 SURESWAB(R) ADVANCED VAGINITIS PLUS, TMA SURESWAB(R) ADVANCED VAGINITIS PLUS, TMA Pathology and Cytology Routine Vaginal discharge Ordered: 12/08/2023 [facility] Work Phone: Comment on above: Ordered: 12/08/2023 Payers Date Payer Category Payer Medicaid [employer] [place] [employer] [id number] 2022-Present [address] [place] [address] [id number] 1997 Unknown [id number] 1997 Unknown [id number] 1997 Unknown [id number] 1997 Unknown [id number] 1959 Unknown [id number] Social History Date Type Detail Facility Start: 04-23-2023 End: 08-22-2023 Sex Assigned At [facility] Other Start: 04-23-2023 Tobacco smoking stat [facility] Never smoked tobacco [facility] Start: 08-22-2023 End: 12-08-2023 Alcohol intake Lifetime non-drinker (finding) [facility] Start: 04-23-2023 End: 08-22-2023 History of Social function [facility] Start: 04-23-2023 Education [facility] Start: 04-23-2023 Alcohol Comment caffeine:none [facility] Start: 1995 Sex Assigned At Female [facility] Start: 04-23-2023 Gender identity Identifies as female gender (finding) [facility] History of Present illness Narrative 12-08-2023 DEN [...] nursing note reviewed. Exam conducted with a oncology admin present. Vitals: Estimated body mass index is [...] do not improve or worsen with treatment [place] [facility] Other Evaluation note Note Date & Type Note Facility Evaluation note No Information [facility] [employer] Other Evaluation note Note Date & Type Note Facility Evaluation note Diagnosis Well woman exam with routine gynecological exam Routine gynecological examination Vaginal discharge Leukorrhea, not specified as infective STD exposure Encounter for surveillance of contraceptive pills documented in this encounter [facility] Healthcare Summary Purpose Family History No Family History Records FoundNo Family History Records FoundNo Family History Records Found Advance Directives No Advanced Directives Records FoundNo Advanced Directives Records FoundNo Advanced Directives Records Found Additional Source Comments INFORMATION SOURCE (unrecogn ized section and content) DATE CREATED AUTHOR [facility]/20/2018 [facility] DATE CREATED AUTHOR AUTHOR'S ORGANIZ ATION 09/06/2022 [facility] DATE CREATED AUTHOR AUTHOR'S ORGANIZ ATION 03/20/2024 [facility] Specialists EPIC REASON FOR VISIT (unrecogniz ed [...] BE BASED ON THE PRIMARY CLINICAL RECORDS. [facility] [employer] provides no warranty or guarantee of the accuracy or completeness of information in this document.
[2024-05-14 16:41] LABS: Alanine Aminotransferase 21 U/L (14-59); Albumin Globulin Ratio 0.8; Albumin Level 3.5 g/dL (3.4-5.0); Alkaline Phosphatase 45 U/L (46-116); Anion Gap 9.4; Aspartate Amino Transferase 19 U/L (15-37); BUN Creatinine Ratio 13.1; Bilirubin Total 0.6 mg/dL (0.2-1.0); Calcium 8.8 mg/dL (8.5-10.1); Carbon Dioxide 29.5 mmol/L (21.0-32.0); Chloride 103 mmol/L (98-107); Estimated GFR (African America >60 (>=60); Estimated GFR (Non-African Ame >60 (>=60); Globulin 4.2 g/dL; Glucose 83 mg/dL (74-106); Potassium 3.9 mmol/L (3.5-5.1); Sodium 138 mmol/L (136-145); Total Protein 7.7 g/dL (6.4-8.2)
== END 2024-05-14 15:43 | disposition home or self-care (01) ==
LOC: LAB 15:43
PROVIDERS: PCP Nurse Practitioner; Visit Provider Nurse Practitioner
DX: R77.9 Abnormality of plasma protein, unspecified (principal)
CPT/HCPCS: 36415; 80053

== ENCOUNTER 2025-06-01 20:01 | Outpatient (REF) | payer MEDICAID, SELFPAY ==
--- OUTSIDE RECORDS SUMMARY | 2025-06-01 14:00 | XMS_ITS | Encounter Summary ---
Author Organization [facility] Address [address] [place] [address] Care Team Providers Care Bank Officer Name Role Phone Mika Pickard MD Primary Care Provider [phone] Shiela Arrington NP Unavailable [phone] Rosa Vanegas Unavailable Reason for Visit * Reason Comments Gynecologic Exam Encounter Details Date Type Department Care Team (Late st Contact Info) Description 06/01/2025 2:00 PM EDT Office Visit [facility] [address] [address] Rosa Vanegas PA [address] [place], [place] [id number] Well woman exam with routine gynecological exam; Screen for STD (sexually transmitted disease); Uses control Social History Tobacco Use Types Packs/Day Years Used Date Smoking Tobacco: Never Alcohol Use Standard Drinks/Week Comments Never 0 (1 standard drink = 0.6 oz pur e alcohol) caffeine:none B1300 Health Literacy Answer Date Recor ded How often do you need to hav e someone help you when you read instructions, pamphlets, or other written material from your doctor or pharmacy? Never 03/16/2025 Humiliation, Afraid, Rape, and Kick questionnair e Answer Date Recorded Within the last year, have y ou been afraid of your partner or ex-partner? Patient declined 03/16/2025 Within the last year, have y ou been humiliated or emotionally abused in other ways by your partner or ex-partner? Patient declined 03/16/2025 Within the last year, have y ou been kicked, hit, slapped, or otherwise physically hurt by your partner or ex-partner? Patient declined 03/16/2025 Within the last year, have y ou been raped or forced to have any kind of sexual activity by your partner or ex-partner? No 03/16/2025 Social Connection and Isolation Panel [NHANES] A nswer Date Recorded In a typical week, how many times do you talk on the phone with family, friends, or neighbors? Once a week 03/16/20 How often do you get togethe r with friends or relatives? Once a week 03/16/2025 How often do you attend [facility] or protestant services? Patient declined 03/16/2025 Do you belong to any clubs o r organizations such as lutheran groups, unions, fraternal or athletic groups, or school groups? Yes 03/16/2025 How often do you attend meet ings of the clubs or organizations you belong to? 1 to 4 times per year 03/16/2025 Are you , , di vorced, , never , or living with a partner? 03/16/2025 AUDIT-C Answer Date Recorded Q1: How often do you have a drink containing alc ohol? Monthly or less 03/16/2025 Q2: How many drinks containi ng alcohol do you have on a typical day when you are drinking? 3 or 4 03/16/2025 Q3: How often do you have si x or more drinks on one occasion? Less than monthly 03/16/2025 Overall Financial Resource Strain (CARDIA) Answe r Date Recorded How hard is it for you to pa y for the very basics like food, housing, medical care, and heating? Somewhat hard 03/16/2025 PHQ-2 Answer Date Recorded Patient Health Questionnaire-2 Score 2 01/29/2024 [facility] [place] [facility] Occup[facility] ional Health - Occupational Stress Questionnaire Answer Date Recorded Do you feel stress - tense, restless, nervous, or anxious, or unable to sleep at night because your mind is troubled all the time - these days? Rather much 03/16/2025 Exercise Vital Sign Answer Date Recorde d On average, how many days pe r week do you engage in moderate to strenuous exercise (like a brisk walk)? 2 days 03/16/2025 On average, how many minutes do you engage in exercise at this level? 90 min 03/16/2025 Hunger Vital Sign Answer Date Recorded Within the past 12 months, y ou worried that your food would run out before you got the money to buy more. Never true 03/16/20 25 Within the past 12 months, t he food you bought just didn't last and you didn't have money to get more. Never true 03/16/2025 PRAPARE - Transportation Answer Date Re corded In the past 12 months, has l ack of transportation kept you from medical appointments or from getting medications? No 02/25 In the past 12 months, has l ack of transportation kept you from meetings, work, or from getting things needed for daily living? No 03/16/2025 Housing Stability Vital Sign Answer Van e Recorded In the last 12 months, was t here a time when you were not able to pay the mortgage or rent on time? Yes 01/28/2024 In the last 12 months, how many places have you lived? 1 01/28/2024 In the last 12 months, was t here a time when you did not have a steady place to sleep or slept in a group home (including now)? No 01/28/2024 Housing Stability Vital Sign Answer Van e Recorded In the last 12 months, was t here a time when you were not able to pay the mortgage or rent on time? No 03/16/2025 Number of Times Moved in the Last Year Not on fi le 03/16/2025 At any time in the past [address] [facility], were you homeless or living in a group home (including now)? No 03/16/2025 Education Answer Date Recorded What is the highest level of school you have completed or the highest degree you have received? High school graduate 04/23/2023 Comments No Sex and Gender Information Value Date Recorded Sex Assigned at Female 04/23/2023 12:37 PM EDT Legal Sex Female 7:07 PM EDT Gender Identity Female 04/23/2023 12:37 PM EDT Sexual Orientation Not on file Occupation Industry Job Start Date Job End Date Cook Not on file Not on file Not on file documented as of this encounter Last Filed Vital Signs Vital Sign Reading Time Taken Comments Blood Pressure 110/60 06/01/2025 2:17 PM EDT Pulse - - Temperature - - Respiratory Rate - - Oxygen Saturation - - Inhaled Oxygen Concentration - - Weight 55.3 kg (122 lb) 06/01/2025 2:17 PM EDT Height 152.4 cm (5') 06/01/2025 2:17 PM EDT Body Mass Index 23.83 06/01/2025 2:17 PM EDT documented in this encounter Plan of Treatment Upcoming Encounters Date Type Department Care Team (Late st Contact Info) Description 06/06/2026 10:00 AM EDT Procedure Visit [facility] [address] [phone] Rosa Vanegas PA [address] [place] [address] Scheduled Orders Name Type Priority Associated Diagnoses Orde r Schedule Pap Smear Pathology and Cytology Routine Well woman exam with routine gynecological exam Ordered: 06/01/2025 SURESWAB(R) ADVANCED VAGINITIS PLUS, TMA Pathology and Cytology Routine Screen for STD (sexually transmitted disease) Ordered: 06/01/2025 CHLAMYDIA TRACHOMATIS (GENITO/STI) Lab Routine Screen for STD (sexually transmitted disease) Ordered: 06/01/2025 Neisseria gonorrhea DNA probe, direct Lab Routine Screen for STD (sexually transmitted disease) Ordered: 06/01/2025 documented as of this encounter Procedures Procedure Name Priority Date/Time Associated Diagnosis Comments POCT , URINE Routine 06/01/2025 2:55 PM EDT Uses control documented in this encounter Results * POCT , urine manually resulted (06/01/2025 2:55 PM EDT) Preg Test, Ur Negative Negative Urine 06/01/2025 2:55 PM EDT Rosa CRENSHAW POINT OF CARE TEST ENTER/EDIT OR DERABLES Final Result documented in this encounter Visit Diagnoses Diagnosis Well woman exam with routine gynecological exam Routine gynecological examination Screen for STD (sexually transmitted disease) Screening examination for venereal disease Uses control documented in this encounter Care Teams Bank Officer Relationship Specialty Start Date End Date Mika Pickard MD [address] [place] [address] PCP - General Family Medicine 01/29/24 Rosa Vanegas PA [address] [place] [address] [place] [address] PCP - [facility] 10/27/24 Shiela Arrington NP [address] [place] [address] Nurse Practitioner Family Medicine 01/29/24 documented as of this encounter
--- OUTSIDE RECORDS SUMMARY | 2025-06-01 20:05 | XMS_ITS | Patient Health Record ---
Author Organization [facility] vices Address [address] [place], [place] [id number] Support Name Relationship Address Phone Chivo Barbour Emergency Contact , [facility] Thomas López Guarantor Unknown [phone] Reason For Referral No Information Plan Of Treatment No Information Insurance Providers Payer Name Payer Address Payer Phone Subscriber Number Group Number Insured Name Patient Relationship to Insured Coverage Start Date Coverage End Date [facility] [address] [place] [address] [id number] Thomas López Self - patient is the insured DMedicaid [facility] after [employer] [address] [place], [place] [id number] Thomas López Self - patient is the insured 3
--- OUTSIDE RECORDS SUMMARY | 2025-06-01 20:05 | XMS_ITS | Encounter Summary ---
Author Organization [facility] Address [address] [place] [address] Care Team Providers Care Stockroom Clerk Name Role Phone Mika Pickard MD Primary Care Provider [phone] Shiela Arrington NP Unavailable [phone] Rosa Vanegas Unavailable Shiela Arrington NP Unavailable [phone] Rosa Vanegas Unavailable Reason for Visit * Reason Comments Med Refill Encounter Details Date Type Department Care Team (Late st Contact Info) Description 05/18/2024 Refill [facility] [address] [place] [address] Shiela Arrington NP [address] [place] [address] Social History Tobacco Use Types Packs/Day Years Used Date Smoking Tobacco: Never Alcohol Use Standard Drinks/Week Comments Never 0 (1 standard drink = 0.6 oz pur e alcohol) caffeine:none Social Connection and Isolation Panel [NHANES] A nswer Date Recorded In a typical week, how many times do you talk on the phone with family, friends, or neighbors? Twice a week 01/28/20 How often do you get togethe r with friends or relatives? Never 01/28/2024 How often do you attend [facility] or [facility] services? 1 to 4 times per year 01/28/2024 Do you belong to any clubs o r organizations such as yazidi groups, unions, fraternal or athletic groups, or school groups? Patient declined 01/28/2024 How often do you attend meet ings of the clubs or organizations you belong to? Patient declined 01/28/2024 Are you , , di vorced, , never , or living with a partner? 01/28/2024 AUDIT-C Answer Date Recorded Q1: How often do you have a drink containing alc ohol? Monthly or less 01/28/2024 Q2: How many drinks containi ng alcohol do you have on a typical day when you are drinking? 3 or 4 01/28/2024 Q3: How often do you have si x or more drinks on one occasion? Less than monthly 01/28/2024 Overall Financial Resource Strain (CARDIA) Answe r Date Recorded How hard is it for you to pa y for the very basics like food, housing, medical care, and heating? Not very hard 01/28/2024 PHQ-2 Answer Date Recorded Patient Health Questionnaire-2 Score 2 01/29/2024 Exercise Vital Sign Answer Date Recorde d On average, how many days pe r week do you engage in moderate to strenuous exercise (like a brisk walk)? 2 days 01/28/2024 On average, how many minutes do you engage in exercise at this level? 20 min 01/28/2024 Hunger Vital Sign Answer Date Recorded Within the past 12 months, y ou worried that your food would run out before you got the money to buy more. Patient declined Within the past 12 months, t he food you bought just didn't last and you didn't have money to get more. Never true 12/2023 PRAPARE - Transportation Answer Date Re corded In the past 12 months, has l ack of transportation kept you from medical appointments or from getting medications? No 12/2023 In the past 12 months, has l ack of transportation kept you from meetings, work, or from getting things needed for daily living? No 01/28/2024 Housing Stability Vital Sign Answer [...] place to sleep or slept in a nursing home (including now)? No 01/28/2024 Education Answer Date Recorded What is the highest level of school you have completed or the highest degree you have received? 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 Not on file documented as of this encounter Plan of Treatment Upcoming Encounters Date Type Department Care Team (Late st Contact Info) Description 06/06/2026 10:00 AM EDT Procedure Visit [facility] [address] [facility] [place] [address] Rosa Vanegas PA [address] [facility] [place] [address] documented as of this encounter Visit Diagnoses Not on filedocumented in this encounter Care Teams Stockroom Clerk Relationship Specialty Start Date End Date Mika Pickard MD [address] [place] [address] PCP - General Family Medicine 01/29/24 Rosa Vanegas PA [address] [place] [address] [place] [address] PCP - [facility] 04/26/24 Shiela Arrington NP [address] [place] [address] PCP - [facility] 07/27/2410/26 Rosa Vanegas PA [address] [place] [address] [place] [address] [facility] - [facility] 10/27/24 Shiela Arrington NP [address] [place] [address] Nurse Practitioner Family Medicine 01/29/24 documented as of this encounter
--- OUTSIDE RECORDS SUMMARY | 2025-06-01 20:05 | XMS_ITS | Clinical Summary ---
Author Organization [facility] Address [id number] [address] [place] [address] Care Team Providers Care Oracle Business Analyst Name Role Phone No Pcp, No Pcp Primary Care Provider Unavailabl e Allergies No known active allergies Medications vit calc,iron,folic ( VITAMIN ORAL) Take 1 tablet by mouth daily. 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 06/02/2019 Family History Medical History Relation Name Comments Mental illness Father bipolar Hypertension Maternal Grandfather Stroke Maternal Grandfather Thyroid disease Maternal Grandmother Cancer Mother cervical Mental illness Sister Relation Name Status Comments Father Maternal Grandfather Maternal Grandmother Mother Sister Social History Tobacco Use Types Packs/Day Years Used Date Smoking Tobacco: Never Smokeless Tobacco: Never Alcohol Use Standard Drinks/Week Comments Not Currently 0 (1 standard drink = 0.6 oz pur e alcohol) Childcare Answer Date Recorded Childcare Unknown 04/07/2019 Employment Answer Date Recorded Employment Unknown 04/07/2019 Purpose - Life Answer Date Recorded Purpose and direction in life Unknown Comments No Sex and Gender Information Value Date Recorded Sex Assigned at Not on file Legal Sex Female 11:52 AM EDT Gender Identity Not on file Sexual Orientation Not on file Last Filed Vital Signs Vital Sign Reading Time Taken Comments Blood Pressure 113/60 06/02/2019 8:50 AM EDT Pulse 76 06/02/2019 8:50 AM EDT Temperature - - Respiratory Rate - - Oxygen Saturation - - Inhaled Oxygen Concentration - - Weight 57.6 kg (127 lb) 05/28/2019 2:19 PM EDT Height 162.6 cm (5' 4 ) 05/28/2019 2:19 PM EDT Body Mass Index 21.8 05/28/2019 2:19 PM EDT Plan of Treatment Health Maintenance Due Date Last Done Comments Depression Screening 2009 Tobacco Screening 2009 Adult BMI Screening 2015 DTaP,Tdap and Td Vaccines (1 - Tdap) 01/26/2016 Pap Smear 2018 Influenza Vaccine 06/27/2025 Medical Devices Not on file Insurance [place] [employer] Care Teams Oracle Business Analyst Relationship Specialty Start Date End Date No Pcp, No Pcp JORGE LUIS Parkinson [id number] PCP - General Family Medicine 06/02/19
--- OUTSIDE RECORDS SUMMARY | 2025-06-01 20:06 | XMS_ITS | Encounter Summary ---
Author Organization [facility] Address [address] [place] [address] Care Team Providers Care Pt Sitter Name Role Phone Mika Pickard MD Primary Care Provider [phone] Shiela Arrington NP Unavailable [phone] Rosa Vanegas Unavailable Shiela Arrington SIGN PAINTER HELPER Unavailable [phone] Rosa Vanegas Unavailable Reason for Visit * Reason Comments Med Refill Encounter Details Date Type Department Care Team (Late st Contact Info) Description 02/20/2024 Refill [facility] [address] [place] [address] Shiela Arrington NP [address] [place] [address] URI, acute Social History Tobacco Use Types Packs/Day Years [...] Never 01/28/2024 How often do you attend [facility] or judaism services? 1 to 4 times per year 01/28/2024 Do you belong to any clubs o r organizations such as jain groups, unions, fraternal or athletic groups, or [...] place to sleep or slept in a halfway (including now)? No 01/28/2024 Education Answer Date [...] on file documented as of this encounter Miscellaneous Notes * Telephone Encounter - Shiela Arrington NP - 02/22/2024 7:27 AM EDT This was for an acute diagnosis, not a maintenance medication documented in this encounter Plan of Treatment Upcoming Encounters Date Type Department Care Team (Late st Contact Info) Description 06/06/2026 10:00 AM EDT Procedure Visit [facility] [address] [facility] [place] [address] Rosa Vanegas PA [address] [facility] [place] [place] [address] documented as of this encounter Visit Diagnoses Diagnosis URI, acute Acute upper respiratory infections of unspecified site documented in this encounter Care Teams Pt Sitter Relationship Specialty Start Date End Date Mika Pickard MD [address] [place] [address] PCP - General Family Medicine 01/29/24 Rosa Vanegas PA [address] [facility] [place] [place] [address] PCP - [facility] 04/26/24 Shiela Arrington NP [address] [place] [address] [facility] 07/27/2410/26 Rosa Vanegas PA [address] [place] [address] [place] [address] PCP [facility] 10/27/24 Shiela Arrington NP [address] [place] [address] Nurse Practitioner Family Medicine 01/29/24 documented as of this encounter
--- OUTSIDE RECORDS SUMMARY | 2025-06-01 20:06 | XMS_ITS | Encounter Summary ---
Author Organization [facility] Address [address] [facility] [place] [address] Care Team Providers Care Marketing Technology Specialist Name Role Phone Mika Pickard MD Primary Care Provider [phone] Shiela Arrington NP Unavailable [phone] Rosa Vanegas Unavailable Encounter Details Date Type Department Care Team (Late st Contact Info) Description 06/01/2025 Bamboo flowsheet [facility] [address] [place] [address] Rosa Vanegas PA [address] [facility] [address] [place], [id number] Social History Tobacco Use Types Packs/Day Years [...] week 03/16/2025 How often do you attend chur ch or yazdanism services? Patient declined 03/16/2025 Do you belong to any clubs o r organizations such as gnosticist groups, unions, fraOpsens or athletic groups, or school groups? Yes [...] Recorded Patient Health Questionnaire-2 Score 2 01/29/2024 [facility] - Occupational Stress Questionnaire Answer [...] place to sleep or slept in a fci (including now)? No 01/28/2024 Housing Stability Vital Sign Answer Van e Recorded In the last 12 months, was t here a time when you were not able to pay the mortgage or rent on time? No 03/16/2025 Number of Times Moved in the Last Year Not on fi le 03/16/2025 At any time in the past 12 m [facility], were you homeless or living in a fci (including now)? No 03/16/2025 Education Answer Date [...] EDT Procedure Visit [facility] [address] [place] [address] Rosa Vanegas PA [address] [facility] [place] [address] documented as of this encounter Visit Diagnoses Not on filedocumented in this encounter Care Teams Marketing Technology Specialist Relationship Specialty Start Date End Date Mika Pickard MD [address] [place] [address] PCP - General Family Medicine 01/29/24 Rosa Vanegas PA [address] [facility] [place] [address] PCP - [facility] 10/27/24 Shiela Arrington NP [address] [place] [address] Nurse Practitioner Family Medicine 01/29/24 documented as of this encounter
--- OUTSIDE RECORDS SUMMARY | 2025-06-01 20:06 | XMS_ITS | Encounter Summary ---
Author Organization [facility] Address [address] [place] [address] Care Team Providers Care Fitting Room Inspector Name Role Phone Mika Pickard MD Primary Care Provider [phone] Shiela Arrington NP Unavailable [phone] Rosa Vanegas Unavailable Shiela Arrington NP Unavailable [phone] Rosa Vanegas Unavailable Encounter Details Date Type Department Care Team (Late st Contact Info) Description 03/26/2024 Orders Only [facility] [address] [place] [address] Shiela Arrington NP [address] [place] [address] Elevated serum protein level (Primary Dx); Yeast infection Social History Tobacco Use Types Packs/Day Years [...] Never 01/28/2024 How often do you attend [facility] or druze services? 1 to 4 times per year 01/28/2024 Do you belong to any clubs o r organizations such as mandaen groups, unions, fraternal or athletic groups, or [...] place to sleep or slept in a correction (including now)? No 01/28/2024 Education Answer Date [...] Procedure Visit [facility] [address] [facility] [place] [address] Rosa Vanegas PA [address] [facility] [place] [address] Scheduled Orders Name Type Priority Associated Diagnoses Orde r Schedule Comprehensive metabolic panel Lab Routine Elevated serum protein level Expected: 04/09/2024 (Approximate), Expires: 03/26/2025 documented as of this encounter Visit Diagnoses Diagnosis Elevated serum protein level- Primary Yeast infection documented in this encounter Care Teams Fitting Room Inspector Relationship Specialty Start Date End Date Mika Pickard MD [address] [place] [address] PCP - General Family Medicine 01/29/24 Rosa Vanegas PA [address] [place] [address] PCP - [facility] 04/26/24 Shiela Arrington NP [address] [place] [phone] [facility] - [facility] 07/27/2410/26 Rosa Vanegas PA [address] [place] [address] [place] [address] [facility] 10/27/24 Shiela Arrington NP [address] [place] [address] Nurse Practitioner Family Medicine 01/29/24 documented as of this encounter
--- OUTSIDE RECORDS SUMMARY | 2025-06-01 20:06 | XMS_ITS | Clinical Summary ---
Author Organization [facility] Address [address] [place] [address] Care Team Providers Care Weather Strip Mechanic Name Role Phone Mika Pickard MD Primary Care Provider [phone] Shiela Arrington NP Unavailable [phone] Rosa Vanegas Unavailable Allergies Active Allergy Reactions Criticality Noted Date Comments Penicillin G 12/08/2023 Other Reaction(s): unknown Penicillins 04/24/2023 Medications omeprazole (PriLOSEC) [address] capsuleIndications :Gastroesophageal reflux disease without esophagitis Take 1 capsule (20 mg) by mouth in the morning. Take before meals. Do not crush or chew.. 30 capsule 1 4 Active Lo Loestrin Fe 1 MG-10 MCG / 10 MCG tabletIndications: Encounter for surveillance of contraceptive pills TAKE 1 TABLET BY MOUTH EVERY DAY IN THE MORNING 28 tablet 3 5 Active lamoTRIgine (LaMICtal) 25 MG tabletIndications: Mood disorder 1 pill at bedtime for 2 weeks, then increase to 2 pills at bedtime 60 tablet 1 5 Active medroxyPROGESTERon e (Depo-Provera) 150 MG/ML injectionIndicatio ns:Uses control Inject 1 mL (150 mg) into the shoulder, thigh, or buttocks every 3 (three) months 1 mL 5 Active Active Problems Problem Noted Date Diagnosed Date Mood disorder 03/23/2025 Assessment & Plan (03/23/2025 2:44 PM EDT): Start lamictal Discussed red flag, and rash Fu in 6 weeks MDQ=negative PHQ 9=9 GAD7=19 Elevated serum protein level 03/26/2024 Unintentional weight loss of more than 10 pounds 03/17/2024 Assessment & Plan (03/17/2024 5:04 PM EDT): Will check labs and CXR, however I do suspicion this is more anxiety related Will cont with work up SOWMYA (generalized anxiety disorder) 03/17/2024 Assessment & Plan (03/17/2024 5:04 PM EDT): Start buspar 5mg BID Fu in 3-4 weeks Check labs Abnormal vaginal bleeding 01/29/2024 Menorrhagia with irregular cycle 01/29/2024 Pelvic congestion syndrome 01/29/2024 Attention-deficit hyperactivity disorder, combin ed type 01/29/2024 Gastroesophageal reflux disease without esophagi tis 11/17/2023 Assessment & Plan (03/17/2024 5:03 PM EDT): Does have hx of this, concern with stressors and weight loss possible ulcer Will start back on PPI Check labs Resolved Problems Problem Noted Date Diagnosed Date Resolved Date Yeast infection 03/26/2024 11/10/2024 URI, acute 01/29/2024 11/10/2024 Assessment & Plan (01/29/2024 10:52 AM EDT): Symptoms over 3 days, at this point we discussed testing for COVID and flu, she declined as it would not change my treatment plan at this point Fluids, rest, OCT mucinex DM, atb , steroids, as well as inhaler Fu if not better Gastro-esophageal reflux dis ease without esophagitis 11/17/2023 01/29/2024 Encounters Date Type Department Care Team Description 06/01/2025 2:00 PM EDT Office Visit [facility] [address] [facility] [facility] [address] Rosa Vanegas PA Well woman exam with routine gynecological exam; Screen for STD (sexually transmitted disease); Uses control 06/01/2025 Bamboo flowsheet [facility] [address] [place] [address] [place] [address] Rosa Vanegas PA 03/23/2025 1:20 PM EDT Office Visit [facility] [address] [place] [address] Shiela Arrington NP Mood disorder (Primary Dx); Unintentional weight loss of more than 10 pounds; Elevated serum protein level 03/23/2025 Bamboo flowsheet [facility] [address] [place] [address] Shiela Arrington NP 03/16/2025 Travel from Last 3 Months Immunizations Immunization Administration Dates Next Due DTaP, Unspecified 02/04/2002, 8,1997,06/08,1997 HPV, Quadrivalent 10/11/2013,03/18/2013 Hep A, ped/adol, 2 dose 10/11/2013,03/18/2013 Hep B, Adolescent or Pediatric 1997,1996 HiB, unspecified 06/29/1998,1997, 7 Hib / Hep B 1997 IPV 02/04/2002 Influenza, injectable, quadr ivalent, preservative free 07/27/2023,01/30/2023,07/14/2020 MMR 02/04/2002,03/16/1998 Meningococcal MCV4P 10/11/2013 OPV 03/16/1998,1997,1997 Tdap 02/24/2013 Varicella 07/14/2020,03/16/1998 Family History Medical History Relation Name Comments Bipolar disorder Brother Mental illness Brother Bipolar disorder Father Mental illness Father Eczema Maternal Grandfather Stroke Maternal Grandfather Skin cancer Maternal Grandmother Thyroid disease Maternal Grandmother Cervical cancer Mother Bipolar disorder Sister Mental illness Sister Relation Name Status Comments Brother Father Alive Maternal Grandfather Maternal Grandmother Mother Alive Paternal Grandfather Alive Paternal Grandmother Alive Sister Son 1 Alive Son 2 Alive Social History Tobacco Use Types Packs/Day Years Used Date Smoking Tobacco: Never Tobacco Cessation:Counseling Given: Not Answered Alcohol Use Standard Drinks/Week Comments Never 0 [...] 03/16/2025 How often do you attend chur or baptist services? Patient declined 03/16/2025 Do you belong to any clubs o r organizations such as mandaeism groups, unions, fraternal or athletic groups, or [...] Recorded Patient Health Questionnaire-2 Score 2 01/29/2024 [facility] - Occupational Stress Questionnaire Answer Date Recorded [...] place to sleep or slept in a intermediate (including now)? No 01/28/2024 Housing Stability Vital Sign Answer Van e Recorded In the last 12 months, was t here a time when you were not able to pay the mortgage or rent on time? No 03/16/2025 Number of Times Moved in the Last Year Not on fi le 03/16/2025 At any time in the past 12 m [facility], were you homeless or living in a intermediate (including now)? No 03/16/2025 Education Answer Date [...] file Not on file Not on file Last Filed Vital Signs Vital Sign Reading Time Taken Comments Blood Pressure 110/60 06/01/2025 2:17 PM EDT Pulse 78 03/23/2025 1:28 PM EDT Temperature 36.8 C (98.2 F) 03/23/2025 1:28 PM EDT Respiratory Rate 18 03/23/2025 1:28 PM EDT Oxygen Saturation 98% 03/23/2025 1:28 PM EDT Inhaled Oxygen Concentration - - Weight 55.3 kg (122 lb) 06/01/2025 2:17 PM EDT Height 152.4 cm (5') 06/01/2025 2:17 PM EDT Body Mass Index 23.83 06/01/2025 2:17 PM EDT Plan of Treatment Upcoming Encounters Date Type Department Care Team (Late st Contact Info) Description 06/06/2026 10:00 AM EDT Procedure Visit [facility] [address] [facility] [address] Rosa Vanegas PA [address] [facility] [place] [address] Health Maintenance Due Date Last Done Comments Influenza Vaccine (#1) 2025 07/27/2023, 2022, 07/14/2020 Procedures Procedure Name Priority Date/Time Associated Diagnosis Comments POCT , URINE Routine 06/01/2025 2:55 PM EDT Uses control POCT , URINE Routine 03/23/2025 3:55 PM EDT Unintentional weight loss of more than 10 pounds from Last 3 Months Results * POCT , urine manually resulted (06/01/2025 2:55 PM EDT) Only the most recent of2 resultswithin the time period is included. Preg Test, Ur Negative Negative Urine 06/01/2025 2:55 PM EDT Rosa CRENSHAW POINT OF CARE TEST ENTER/EDIT OR DERABLES Final Result from Last 3 Months Insurance [employer] [place] Care Teams Weather Strip Mechanic Relationship Specialty Start Date End Date Mika Pickard MD [address] [place] [address] PCP - General Family Medicine 01/29/24 Rosa Vanegas PA [address] [place] [address] [place] [address] [facility] 10/27/24 Shiela Arrington NP [address] [place] [address] Nurse Practitioner Family Medicine 01/29/24
--- OUTSIDE RECORDS SUMMARY | 2025-06-01 20:06 | XMS_ITS | Encounter Summary ---
Author Organization [facility] Address [address] [place] [address] Care Team Providers Care Marine Pilot Name Role Phone Mika Pickard MD Primary Care Provider [phone] Shiela Arrington NP Unavailable [phone] Rosa Vanegas Unavailable Shiela Arrington NP Unavailable [phone] Rosa Vanegas Unavailable Encounter Details Date Type Department Care Team (Late st Contact Info) Description 10/22/2023 Abstract [facility] [address] [place] [address] Shiela Arrington NP [address] [place] [address] Social History Tobacco Use Types Packs/Day Years Used Date Smoking Tobacco: Never Alcohol Use Standard Drinks/Week Comments Never 0 (1 standard drink = 0.6 oz pur e alcohol) caffeine:none Education Answer Date Recorded What is the [...] EDT Procedure Visit [facility] [address] [facility] [place] [address] Rosa Vanegas PA [address] [facility] [place] [address] documented as of this encounter Visit Diagnoses Not on filedocumented in this encounter Care Teams Marine Pilot Relationship Specialty Start Date End Date Mika Pickard MD [address] [place] [address] PCP - [facility] 01/29/24 Rosa Vanegas PA [address] [facility] [place] [address] PCP - [facility] 04/26/24 Shiela Arrington NP [address] [place] [address] PCP - [facility] 07/27/2410/26 Rosa Vanegas PA [address] [facility] [place] [address] PCP - [facility] 10/27/24 Shiela Arrington NP [address] [place] [address] Nurse Practitioner Family Medicine 01/29/24 documented as of this encounter
--- OUTSIDE RECORDS SUMMARY | 2025-06-01 20:06 | XMS_ITS | Encounter Summary ---
Author Organization [facility] Address [address] [place] [address] Care Team Providers Care Pneumatic Riveter Name Role Phone Mika Pickard MD Primary Care Provider [phone] Shiela Arrington NP Unavailable [phone] Rosa Vanegas Unavailable Shiela Arrington NP Unavailable [phone] Rosa Vanegas Unavailable Encounter Details Date Type Department Care Team (Late st Contact Info) Description 03/24/2024 Orders Only [facility] [address] [place] [address] Shiela Arrington NP [address] [facility] [place] [address] Social History Tobacco Use Types [...] Never 01/28/2024 How often do you attend chur ch or zoroastrian services? 1 to 4 times per year 01/28/2024 Do you belong to any clubs o r organizations such as hoahaoism groups, unions, fraternal or athletic groups, or [...] place to sleep or slept in a assisted (including now)? No 01/28/2024 Education Answer Date [...] EDT Procedure Visit [facility] [address] [place] [id number] Rosa Vanegas PA [address] [place], [place] [id number] documented as of this encounter Procedures Procedure Name Priority Date/Time Associated Diagnosis Comments XR CHEST 2 VIEWS Routine 03/24/2024 3:59 PM EDT documented in this encounter Results * XR chest 2 views (03/24/2024 3:59 PM EDT) Anatomical Region Laterality Modality Chest Radiographic Marietta ging Shiela Arrington ROD BENDING MACHINE OPERATOR IMG XR PROCEDURES Final Result documented in this encounter Visit Diagnoses Not on filedocumented in this encounter Care Teams Pneumatic Riveter Relationship Specialty Start Date End Date Mika Pickard MD [address] [place] [address] PCP - General Family Medicine 01/29/24 Rosa Vanegas PA [address] [place], [place] [id number] PCP - [facility] 04/26/24 Shiela Arrington NP [address] [place] [id number] [facility] 07/27/2410/26 Rosa Vanegas PA [address] [place] [address] [place] [address] PCP - [facility] 10/27/24 Shiela Arrington NP [address] [place] [phone] Nurse Practitioner Family Medicine 01/29/24 documented as of this encounter
--- OUTSIDE RECORDS SUMMARY | 2025-06-01 20:06 | XMS_ITS | CCD ---
Author Organization [facility] Informpending [facility] to [facility] Care Team Providers Care Brazing Furnace Feeder Name Role Phone Jb Llamas Unavailable Unavailable NONE, XXXX Unavailable Unavailable Jb Llamas Unavailable Unavailable NONE, XXXX Unavailable Unavailable Elle Ray Unavailable Anotnella Petersen Unavailable REQUEST, DR STEIN LISTED Primary Care Unavaila nettie ROSENBERG, DR VICKERS Attending Unavailable LUCY, DR VICKERS Consulting Unavailable LUCY, DR VICKERS Admitting Unavailable Unavailable Primary Care Provider Unavailmoises Pickard MD, Mika Primary Care Provider Nury HERBICIDE SPRAYER, Shiela Unavailable Rosa Hall Unavailable Rosa Hall Unavailable SHIELA ARRINGTON Attending Unavailable ROSA PEARL Attending Unavailable Allergies Allergy Classification Reported Allergen(s) Allergy Type Date of Onset Reaction(s) Facility (2 sources) Penicillin V Drug Allergy [facility] Other (12 sources) Penicillins Propensity to adverse reactions 3 [facility] Healthcare (11 sources) Penicillin G Drug Allergy 4 [facility] Medications Current Medications Medication Drug Class(es) Dates Sig (Normalized) Sig (Original) Ethinyl Estradiol / Ferrous fumarate / Norethindrone (14 sources) Estrogen Start: 12-03-2024 take 1 tablet by mouth once daily in the morning Lo Loestrin Fe 1 MG-10 MCG / 10 MCG tablet Indications: Encounter for surveillance of contraceptive pills TAKE 1 TABLET BY MOUTH EVERY DAY IN THE MORNING 28 tablet 3 12/03/2024 Active Start: 06-22-2024 take 1 tablet by denise th once daily in the morning Lo Loestrin Fe 1 MG-10 MCG / 10 MCG tablet Indications: Encounter for surveillance of contraceptive pills TAKE 1 TABLET BY MOUTH EVERY DAY IN THE MORNING 28 tablet 3 06/22/2024 Active Start: 12-08-2023 End: 12-07-2024 take 1 tablet [...] morning. 28 tablet 3 12/01/2023 03/22/2024 Active lamoTRIgine 25 mg oral tablet (3 sources) Mood Stabilizer, Anti-epileptic Agent Start: 03-23-2025 lamoTRIgine (LaMICtal) 25 MG tablet Indications: Mood disorder 1 pill at bedtime for 2 weeks, then increase to 2 pills at bedtime 60 tablet 1 03/23/2025 Active methylPREDNISolone 4 mg oral tablet (3 sources) Corticosteroid Start: 05-28-2022 methylPREDNISolone 4 MG as directed Orally for daily dose take half with breakfast, half with dinner for 6 days May, Active omeprazole 20 mg delayed release oral capsule (12 sources) Proton Pump Inhibitor Start: 03-17-2024 take 1 capsule by mouth before mealtime omeprazole (PriLOSEC) [address] capsule Indications: Gastroesophageal reflux disease without esophagitis Take 1 capsule (20 mg) by mouth in the morning. Take before meals. Do not crush or chew.. 30 capsule 1 03/17/2024 Active Start: 11-17-2023 End: 02-15-2024 take 1 capsule by mouth in the morning omeprazole (PriLOSEC) [address] capsule Indications: Gastro-esophageal reflux disease without esophagitis Take 1 capsule (20 mg) by mouth in the morning. 90 capsule 0 11/17/2023 02/15/2024 Active Completed/Discontinued Medications Medication Drug Class(es) Dates Sig (Normalized) Sig (Original) busPIRone hydrochloride 5 mg oral tablet (3 sources) Start: 04-16-2024 End: 07-19-2024 take 1 tablet by mouth in the morning busPIRone (Buspar) 5 MG tablet Indications: SOWMYA (generalized anxiety disorder) (CMS/HCC) Take 1 tablet (5 mg) by mouth in the morning and 1 tablet (5 mg) before bedtime. 60 tablet 04/16/2024 07/19/2024 Discontinued Dexamethasone (2 sources) Corticosteroid Start: 05-28-2022 DEXAMETHASONE May, 6 mg fluconazole 150 mg oral tablet (3 sources) Azole Antifungal Start: 03-26-2024 End: 07-19-2024 fluconazole (Diflucan) 150 MG tablet Indications: Yeast infection 1 pill, repeat in 3 days 2 tablet 03/26/2024 07/19/2024 Discontinued Problems Active Problems Problem Classification Problem Date Documented Date Episodic/Chronic Anxiety disorders (7 sources) Generalized anxiety disorder; Translations: [Generalized anxiety disorder] Onset: 03-17-2024 03-17-2024 Chronic Attention-deficit, conduct, and disruptive behavior disorders (7 sources) Attention deficit hyperactivity disorder, combined type; Translations: [Attention-deficit hyperactivity disorder, combined type] Onset: 01-29-2024 01-29-2024 Chronic Contraceptive and procreative management (2 sources) Oral contraception; Translations: [Encounter for surveillance of contraceptive pills] 12-08-2023 Episodic Esophageal disorders (20 sources) Gastroesophageal reflux disease without esophagitis; Translations: [Gastro-esophageal reflux disease without esophagitis] Onset: 11-17-2023 Resolved: 01-29-2024 11-17-2023 Chronic Immunizations and screening for infectious disease (5 sources) Encounter for screening for human papillomavirus (HPV); Translations: [Exposure to sexually transmissible disorder] Onset: 09-02-2022 12-01-2023 Episodic Menstrual disorders (7 sources) Menometrorrhagia; Translations: [Excessive and frequent menstruation with irregular cycle] Onset: 01-29-2024 01-29-2024 Chronic Mood disorders (5 sources) Mood disorder; Translations: [Unspecified mood [affective] disorder] Onset: 03-23-2025 03-23-2025 Chronic Other female genital disorders (7 sources) Abnormal vaginal bleeding; Translations: [Abnormal uterine and vaginal bleeding, unspecified] Onset: 01-29-2024 01-29-2024 Chronic Other female genital disorders (2 sources) Vaginal discharge; Translations: [Other specified noninflammatory disorders of vagina] 12-01-2023 Episodic Other screening for suspected conditions (not mental disorders or infectious disease) (4 sources) Encounter for screening for malignant neoplasm of cervix; Translations: [ENC SCREENING MALIG NEOPLASM CERV] Onset: 08-29-2022 Episodic Past or Other Problems Problem Classification Problem Date Documented Date Episodic/Chronic Allergic reactions (1 source) Allergic contact dermatitis due to plants, except food Onset: 05-28-2022 Resolved: 05-28-2022 Episodic Mycoses (7 sources) Mycosis; Translations: [Candidiasis, unspecified] Onset: 03-26-2024 Resolved: 11-10-2024 03-26-2024 Episodic Other female genital disorders (7 sources) Pelvic congestion syndrome; Translations: [Other specified conditions associated with female genital organs and menstrual cycle] Onset: 01-29-2024 01-29-2024 Episodic Other hematologic conditions (9 sources) Increased serum protein level; Translations: [Abnormality of plasma protein, unspecified] Onset: 03-26-2024 03-26-2024 Episodic Other nutritional; endocrine; and metabolic disorders (9 sources) Unintentional weight loss; Translations: [Abnormal weight loss] Onset: 03-17-2024 03-17-2024 Episodic Other upper respiratory infections (7 sources) Acute upper respiratory infection; Translations: [Acute upper respiratory infection, unspecified] Onset: 01-29-2024 Resolved: 11-10-2024 01-29-2024 Episodic Results Test Name Value Interpretation Reference Range Facility HCG ( test) Ql (U)o n 03-23-2025 Interpretation and review of laboratory results Normal [facility] Preg Test, Ur Negative Negative [facility] URETHRITIS/DISCHARGE PLUS VA GINITIS (HTRX)on 12-10-2023 [facility] ATOP[facility]BI[facility] VAGINAE Not detected [facility] BVAB 2,3 (BACTERIAL VAGINOSIS ASSOCIATED BACTERIA 2, 3); MOBILUNCUS SPP 0 [facility] BVAB 2,3 (BACTERIAL VAGINOSIS ASSOCIATED BACTERIA 2, 3); MOBILUNCUS SPP Not detected [facility] ROSALINDA ALBICANS, PARAPSILOSIS, TROPICALIS 0 [facility] ROSALINDA ALBICANS, PARAPSILOSIS, TROPICALIS Not detected [facility] ROSALINDA GLABRATA 0 [facility] Hea lthcare ROSALINDA GLABRATA Not detected [facility] H ealthcare ROS[facility]INDA KRUSEI 0 [facility] ROSALINDA KRUSEI Not [facility] CHLAMYDIA TRACHOMATIS 0 [facility] CHLAMYDIA TRACHOMATIS Not detected [facility] GARDNERELLA VAGINALIS 0 [facility] GARDNERELLA VAGINALIS Not detected [facility] MEGASPHAERA (TYPES 1, 2) 0 [facility] MEGASPHAERA (TYPES 1, 2) Not detected [facility] MYCOPLASMA GENITALIUM 0 [facility] MYCOPLASMA GENITALIUM Not detected [facility] NEISSERIA GONORRHOEAE 0 [facility] NEISSERIA GONORRHOEAE Not detected [facility] TRICHOMONAS VAGINALIS 0 [facility] TRICHOMONAS VAGINALIS Not detected [facility] ALL CBC WITH AUTO DIFFon BASOPHILS ABSOLUTE AUTO 0.0 [facility] Basophils/100 WBC (Bld) 0.4 % 0.2 - 2.0 % [facility] Eosinophils/100 WBC (Bld) 2.8 % 0.9 - 7.0 % [facility] Erythrocyte distribution width (RBC) [Ratio] 12.2 % 11.0 - 15.0 % [facility] Hematocrit (Bld) [Volume fraction] 39.1 % 36.0 - 48.0 % [facility] Healthcar e Hemoglobin (Bld) [Mass/Vol] 12.9 g/dL 12.0 - 16.0 g/dL [facility] IMMATURE GRANULOCYTES ABS AUTO 0.02 [facility] Immature granulocytes/100 WBC (Bld) 0.2 % 0.0 - 0.5 % [facility] Interpretation and review of laboratory results Abnormal [facility] LYMPHOCYTES ABSOLUTE AUTO 1.6 [facility] Lymphocytes/100 WBC (Bld) 19.2 % Low 20.5 - 60.0 % [facility] MCH (RBC) [Entitic mass] 28.5 pg 26.7 - 34.0 pg [facility] MCHC (RBC) [Mass/Vol] 33.0 g/dL 29.9 - 35.2 g/dL [facility] MCV (RBC) [Entitic vol] 86.3 fL 81.0 - 99.0 fL [facility] MONOCYTES ABSOLUTE AUTO 0.6 [facility] Monocytes/100 WBC (Bld) 6.8 % 1.7 - 12.0 % [facility] NEUTROPHILS ABSOLUTE AUTO 6.0 [facility] Neutrophils/100 WBC (Bld) 70.6 % 43.0 - 75.0 % [facility] Platelet mean volume (Bld) [Entitic vol] 10.7 fL 9.5 - 13.5 fL [facility] Health[facility] are [facility] EO # 0.2 [facility] PLT 228 [facility] RBC 4.53 [facility] WBC 8.5 [facility] PAP ACOG PANEL 2: 21 to 29on 09-06-2022 . . Normal [facility] Comment on above: Result Comment: Perf ormed at: BA Performed By: #### [id number] #### [facility] [address] [place] [address] Dr. Chloe Franklin Age Gdln ACOG Testing - [facility] Comment on above: Performed By: #### [id number] #### [facility] [address] [address] [address] Chloe Franklin DIAGNOSIS: Comment [facility] Comment on above: Result Comment: NEGA TIVE FOR INTRAEPITHELIAL LESION OR MALIGNANCY. Performed at: BA Performed By: #### [id number] #### [facility] [address] [address] [address] Chloe Franklin Methodology: Comment [facility] Comment on above: Result Comment: This liquid based ThinPrep(R) pap test was screened with the use of an image guided system. Performed at: WB Performed By: #### [id number] #### [facility] [address] [place] [address] Dr. Chloe Franklin Note: Comment Normal [facility] Comment on above: Result Comment: The Pap smear is a screening test designed to aid in the detection of premalignant and malignant conditions of the uterine cervix. It is not a diagnostic procedure and should not be used as the sole means of detecting cervical cancer. Both false-positive and false-negative reports do occur. . Performed at: WB Performed By: #### [id number] #### [facility] [address] [address] [address] Chloe Franklin Performed by: Comment Normal [facility] Comment on above: Result Comment: Carlton Cole, [employer] (ASCP) Performed at: BA Performed By: #### [id number] #### [facility] [address] [place] [address] Dr. Chloe Franklin Reflex Criteria: Comment Normal [facility] Comment on above: Result Comment: The HPV DNA reflex criteria were not met with this specimen result therefore, no HPV testing was performed. . Performed at: BA Performed By: #### [id number] #### [facility] [address] [address] [address] Chloe Franklin Specimen adequacy: Comment Normal [facility] Comment on above: Result Comment: Sati sfactory for evaluation. Endocervical and/or squamous metaplastic cells (endocervical component) are present. Performed at: BA Performed By: #### [id number] #### [facility] [address] [place] [address] Dr. Chloe Franklin Vital Signs Date Time Vital Sign Value Performing Clinician Facility 03-23-2025 13:28-040 Body mass index (BMI) [Ratio] 20.67 kg/m2 Shiela Arrington HERBICIDE SPRAYER Work Phone: [facility] 03-23-2025 13:28-040 Body temperature 98.2 [degF] Shiela Arrington HERBICIDE SPRAYER Work Phone: [facility] 03-23-2025 13:28-040 Body weight 54.61 kg Shiela Arrington HERBICIDE SPRAYER Work Phone: [facility] 03-23-2025 13:28-0400 Diastolic blood pressure 68 mm[Hg] Shiela Arrington HERBICIDE SPRAYER Work Phone: [facility] 03-23-2025 13:28-0400 Heart rate 78 /min Shiela Arrington HERBICIDE SPRAYER Work Phone: [facility] 03-23-2025 13:28-0400 Respiratory rate 18 /min Shiela Arrington HERBICIDE SPRAYER Work Phone: [facility] 03-23-2025 13:28-0400 SaO2% (BldA) [Mass fraction] 98 % Shiela Arrington HERBICIDE SPRAYER Work Phone: [facility] 03-23-2025 13:28-0400 Systolic blood pressure 110 mm[Hg] Shiela Arrington HERBICIDE SPRAYER Work Phone: [facility] 07-19-2024 15:55-0400 Body mass index (BMI) [Ratio] 22.55 kg/m2 Rosa Maringouin PA Work Phone: [facility] 07-19-2024 15:55-0400 Body weight 59.6 kg Rosa Maringouin PA Work Phone: [facility] 07-19-2024 15:55-0400 Diastolic blood pressure 60 mm[Hg] Rosa Romina PA Work Phone: [facility] 07-19-2024 15:55-0400 Systolic blood pressure 110 mm[Hg] Rosa Maringouin PA Work Phone: [facility] 12-08-2023 15:32-0500 Body mass index (BMI) [Ratio] 25.25 kg/m2 Rosa Romina PA Work Phone: [facility] 12-08-2023 15:32-0500 Body weight 66.73 kg Rosa Romina PA Work Phone: [facility] 12-08-2023 15:32-0500 Diastolic blood pressure 74 mm[Hg] Rosa Maringouin PA Work Phone: [facility] 12-08-2023 15:32-0500 Systolic blood pressure 116 mm[Hg] Rosa Romina PA Work Phone: [facility] 05-28-2022 18:10-0400 Body height 162.56 cm Elle Ray Other [facility] Other 05-28-2022 18:10-0400 Body mass index (BMI) [Ratio] 24.89 kg/m2 Elle Ray Other [facility] Other 05-28-2022 18:10-0400 Body temperature 98.9 [degF] Elle Ray Other [facility] Other 05-28-2022 18:10-0400 Body weight 65.77 kg Elle Ray Other [facility] Other 05-28-2022 18:10-0400 Respiratory rate 18 /min Elle Ray Other [facility] Other 05-28-2022 18:10-0400 SaO2% (BldA) [Mass fraction] 97 % Elle Ray Other [facility] Other Encounters Encounter Date Encounter Type Care Provider Facility Start: 06-01-2025 End: 06-01-2025 Bamboo flowsheet oRsa CRENSHAW Work Phone: [facility] Start: 06-01-2025 End: 06-01-2025 Bamboo flowsheet Rosa CRENSHAW Work Phone: [facility] Start: 03-23-2025 End: 03-23-2025 Bamboo flowsheet Shiela Arrington NP Work Phone: [facility] Start: 03-23-2025 End: 03-23-2025 Bamboo flowsheet Shiela Arrington HERBICIDE SPRAYER Work Phone: [facility] Start: 03-23-2025 End: 03-23-2025 Office outpatient visit 25 minutes Shiela Toussaintelise HERBICIDE SPRAYER Work Phone: [facility] Comment on above: Mood disorder (CMS/H CC) (Primary Dx); Unintentional weight loss of more than 10 pounds; Elevated serum protein level Start: 03-23-2025 End: 03-23-2025 ambulatory SHIELA TOUSSAINTELISE Not Available Start: 07-19-2024 End: 07-19-2024 Office outpatient visit 15 minutes Rosa CRENSHAW Work Phone: [facility] Comment on above: Exposure to STD Start: 07-19-2024 End: 07-19-2024 ambulatory ROSA PEARL Not Available Start: 07-19-2024 End: 07-19-2024 Bamboo flowsheet Rosa CRENSHAW Work Phone: [facility] Start: 07-19-2024 End: 07-19-2024 Bamboo flowsheet Rosa CRENSHAW Work Phone: [facility] Start: 12-08-2023 End: 12-08-2023 Patient encounter procedure [...] [facility] Start: 08-29-2022 End: 08-29-2022 ambulatory NONE LISTED REQUEST Facility: Start: 06-08-2022 End: 06-08-2022 ambulatory Antonella Petersen Other [facility] Other Start: 06-08-2022 Telephone encounter Antonella Reevesler [facility] Start: 05-28-2022 End: 05-28-2022 ambulatory Elle Ray Other [facility] Other Start: 05-28-2022 Office outpatient ne w 20 minutes Elle Cory [facility] Start: 12-02-2017 End: 12-03-2017 Ambulatory Jb Llamas Facility:[id number] Procedures Date Procedure Procedure Detail Performing Clinician Start: 03-23-2025 Urine test visual color cmprsn meths Shiela Arrington HERBICIDE SPRAYER Work Phone: Start: 12-08-2023 ALL CBC WITH AUTO DIFF Gab Rosenberg DO Work Phone: Start: 12-08-2023 URETHRITIS/DISCHARGE PLUS VAGINITIS (HTRX) Rosa CRENSHAW Work Phone: Plan of Treatment Date Care Activity Detail Author Start: 06-27-2025 Influenza vaccination [facility] Start: 06-01-2025 End: 06-01-2025 Patient encounter procedure 06/01/2025 2:00 PM EDT Office Visit [facility] [address] [place] [address] Rosa Pearl PA [address] [place] [address] Arrived [facility] Comment on above: Arrived Start: 05-05-2025 End: 05-05-2025 Patient encounter procedure 05/05/2025 1:00 PM EDT Office Visit [facility] [address] [place] [address] Shiela Arrington, HERBICIDE SPRAYER [address] [place] [address] [facility] Start: 03-23-2025 End: 03-23-2026 CBC W Auto Differential panel - Blood CBC and differential Lab Routine Unintentional weight loss of more than 10 pounds Expected: 03/23/2025 (Approximate), Expires: 03/23/2026 [facility] Work Phone: Comment on above: Expected: 03/23/2025 (Approximate), Expires: 03/23/2026 Start: 03-23-2025 End: 03-23-2026 Comprehensive metabolic 2000 panel - Serum or Plasma Comprehensive metabolic panel Lab Routine Unintentional weight loss of more than 10 pounds Elevated serum protein level Expected: 03/23/2025 (Approximate), Expires: 03/23/2026 [facility] Comment on above: Expected: 03/23/2025 (Approximate), Expires: 03/23/2026 Start: 03-23-2025 End: 03-23-2026 Erythrocyte sedimentation rate Sedimentation rate, automated Lab Routine Unintentional weight loss of more than 10 pounds Expected: 03/23/2025 (Approximate), Expires: 03/23/2026 [facility] Comment on above: Expected: 03/23/2025 (Approximate), Expires: 03/23/2026 Start: 03-23-2025 End: 03-23-2026 Thyroid peroxidase and thyroglobulin antibodies Thyroid peroxidase and thyroglobulin antibodies Lab Routine Unintentional weight loss of more than 10 pounds Expected: 03/23/2025 (Approximate), Expires: 03/23/2026 [facility] Comment on above: Expected: 03/23/2025 (Approximate), Expires: 03/23/2026 Start: 03-23-2025 End: 03-23-2026 Thyrotropin [Units/volume] in Serum or Plasma TSH Lab Routine Unintentional weight loss of more than 10 pounds Expected: 03/23/2025 (Approximate), Expires: 03/23/2026 [facility] Comment on above: Expected: 03/23/2025 (Approximate), Expires: 03/23/2026 Start: 03-23-2025 End: 03-23-2026 Thyroxine (T4) free [Mass/volume] in Serum or Plasma T4, free Lab Routine Unintentional weight loss of more than 10 pounds Expected: 03/23/2025 (Approximate), Expires: 03/23/2026 [facility] Comment on above: Expected: 03/23/2025 (Approximate), Expires: 03/23/2026 Start: 03-23-2025 End: 03-23-2026 Triiodothyronine (T3) Free [Mass/volume] in Serum or Plasma T3, free Lab Routine Unintentional weight loss of more than 10 pounds Expected: 03/23/2025 (Approximate), Expires: 03/23/2026 [facility] Comment on above: Expected: 03/23/2025 (Approximate), Expires: 03/23/2026 Start: 03-23-2025 End: 03-23-2026 Urinalysis complete panel - Urine Urinalysis with reflex microscopic (clean catch) Lab Routine Unintentional weight loss of more than 10 pounds Expected: 03/23/2025 (Approximate), Expires: 03/23/2026 [facility] Comment on above: Expected: 03/23/2025 (Approximate), Expires: 03/23/2026 Start: 03-23-2025 End: 03-23-2025 Patient encounter procedure 03/23/2025 1:20 PM EDT Office Visit [facility] [address] [place] [address] Shiela Arrington NP [address] [place] [address] Arrived [facility] Comment on above: Arrived Start: 09-01-2024 End: 09-01-2024 Patient encounter procedure 09/01/2024 1:00 PM EST Office Visit [facility] [address] [place] [id number] Rosa Pearl PA [address] [place] [address] [facility] Start: 07-19-2024 End: 07-19-2024 Patient encounter procedure 07/19/2024 3:30 PM EDT Office Visit [facility] [address] [place] [address] Rosa Pearl, PA [address] [place] [address] Arrived [facility] Comment on above: Arrived Start: 06-27-2024 Influenza vaccination Influenza Vacc ine (#1) [facility] Start: 12-08-2023 End: 12-08-2023 Patient encounter procedure 12/08/2023 3:00 PM EST Office Visit [facility] [address] [place] [address] Rosa Pearl, PA [address] [place] [address] Well woman exam with routine gynecological exam; Vaginal discharge; ST[facility] Comment on above: Well woman exam with routine gynecological exam; Vaginal discharge; STD exposure CHLAMYDIA TRACHOMATI S (GENITO/STI) CHLAMYDIA TRACHOMATIS (GENITO/STI) Lab Routine STD exposure Ordered: 12/08/2023 [facility] Comment on above: Ordered: 12/08/2023 CHLAMYDIA TRACHOMATI S (GENITO/STI) CHLAMYDIA TRACHOMATIS (GENITO/STI) Lab Routine Exposure to STD Ordered: 07/19/2024 [facility] Comment on above: Ordered: 07/19/2024 Cytology Cervical or vaginal smear or scraping study Pap Smear Pathology and Cytology Routine Well woman exam with routine gynecological exam Ordered: 12/08/2023 [facility] Comment on above: Ordered: 12/08/2023 Neisseria gonorrhoea e DNA [Presence] in Unspecified specimen by ANTHONY with probe detection Neisseria gonorrhea DNA probe, direct Lab Routine STD exposure Ordered: 12/08/2023 [facility] Comment on above: Ordered: 12/08/2023 Neisseria gonorrhoea e DNA [Presence] in Unspecified specimen by ANTHONY with probe detection Neisseria gonorrhea DNA probe, direct Lab Routine Exposure to STD Ordered: 07/19/2024 [facility] Comment on above: Ordered: 07/19/2024 SURESWAB(R) ADVANCED VAGINITIS PLUS, TMA SURESWAB(R) ADVANCED VAGINITIS PLUS, TMA Pathology and Cytology Routine Vaginal discharge Ordered: 12/08/2023 [facility] [employer] Work Phone: Comment on above: Ordered: 12/08/2023 SURESWAB(R) ADVANCED VAGINITIS PLUS, TMA SURESWAB(R) ADVANCED VAGINITIS PLUS, TMA Pathology and Cytology Routine Exposure to STD Ordered: 07/19/2024 [facility] [employer] Work Phone: Comment on above: Ordered: 07/19/2024 Immunizations Immunization Date Immunization Notes Care Provider Dolores leslie 07-27-2023 influenza, injectabl e, quadrivalent, preservative free Rosa CRENSHAW Work Phone: [facility] 07-27-2023 influenza virus vacc ine, unspecified formulation Rosa CRENSHAW Work Phone: [facility] 01-30-2023 influenza, injectabl e, quadrivalent, preservative free Rosa CRENSHAW Work Phone: [facility] 07-14-2020 influenza, injectabl e, quadrivalent, preservative free Rosa CRENSHAW Work Phone: [facility] 07-14-2020 varicella virus vaccine Rosa CRENSHAW Work Phone: [facility] 10-11-2013 hepatitis A vaccine, pediatric/adolescent dosage, 2 dose schedule Rosa CRENSHAW Work Phone: [facility] 10-11-2013 human papilloma viru s vaccine, quadrivalent Rosa CRENSHAW Work Phone: [facility] 10-11-2013 meningococcal polysaccharide (groups A, C, Y and W-135) diphtheria toxoid conjugate vaccine (MCV4P) Rosa CRENSHAW Work Phone: [facility] 03-18-2013 hepatitis A vaccine, pediatric/adolescent dosage, 2 dose schedule Rosa CRENSHAW Work Phone: [facility] 03-18-2013 human papilloma viru s vaccine, quadrivalent Rosa CRENSHAW Work Phone: [facility] 02-24-2013 tetanus toxoid, redu finesse diphtheria toxoid, and acellular pertussis vaccine, adsorbed Rosa CRENSHAW Work Phone: [facility] 02-04-2002 diphtheria, tetanus toxoids and acellular pertussis vaccine, unspecified formulation Rosa Maringouin PA Work Phone: [facility] 02-04-2002 measles, mumps and r ubella virus vaccine Rosa Maringouin PA Work Phone: [facility] 02-04-2002 poliovirus vaccine, inactivated Rosa CRENSHAW Work Phone: [facility] 06-29-1998 diphtheria, tetanus toxoids and acellular pertussis vaccine, unspecified formulation Rosa CRENSHAW Work Phone: [facility] 06-29-1998 haemophilus influenz ae type b vaccine, conjugate unspecified formulation Rosa CRENSHAW Work Phone: [facility] 03-16-1998 measles, mumps and r ubella virus vaccine Rosa Calderonrosana CRENSHAW Work Phone: [facility] 03-16-1998 trivalent poliovirus vaccine, live, oral Rosa CRENSHAW Work Phone: [facility] 03-16-1998 varicella virus vaccine Rosa Maringouin PA Work Phone: [facility] 1997 diphtheria, tetanus toxoids and acellular pertussis vaccine, unspecified formulation Rosa CRENSHAW Work Phone: [facility] 1997 haemophilus influenz ae type b conjugate and Hepatitis B vaccine Rosa CRENSHAW Work Phone: [facility] 1997 diphtheria, tetanus toxoids and acellular pertussis vaccine, unspecified formulation Rosa CRENSHAW Work Phone: [facility] 1997 haemophilus influenz ae type b vaccine, conjugate unspecified formulation Rosa CRENSHAW Work Phone: [facility] 1997 trivalent poliovirus vaccine, live, oral Rosa CRENSHAW Work Phone: [facility] 1997 diphtheria, tetanus toxoids and acellular pertussis vaccine, unspecified formulation Rosa CRENSHWA Work Phone: [facility] 1997 haemophilus influenz ae type b vaccine, conjugate unspecified formulation Rosa CRENSHAW Work Phone: [facility] 1997 hepatitis B vaccine, pediatric or pediatric/adolescent dosage Rosa CRENSHAW Work Phone: [facility] 1997 trivalent poliovirus vaccine, live, oral Rosa CRENSHAW Work Phone: [facility] 1997 hepatitis B vaccine, pediatric or pediatric/adolescent dosage Rosa CRENSHAW Work Phone: [facility] Payers Date Payer Category Payer Medicaid [id number] 1997 Unknown [id number] 1997 Unknown [id number] 1997 Unknown [id number] 1959 Unknown [id number] Social History Date Type Detail Facility Start: 08-22-2023 End: 03-16-2025 Sex Assigned At [facility] Start: 04-23-2023 Tobacco smoking status KSIS Never sm oked tobacco [facility] Start: 08-22-2023 End: 03-23-2025 Alcohol intake Lifetime non-drinker (finding) [facility] Start: 08-22-2023 End: 03-16-2025 [facility] Start: 04-23-2023 [facility] Start: 04-23-2023 Alcohol Comment caffeine:none [facility] Start: 1997 Sex Assigned At [facility] Start: 04-23-2023 Gender identity Identifies as female gender (finding) [facility] Do you belong to any clubs or organizations such as anabaptism groups, unions, fraternal or athletic groups, or school groups? Patient declined [facility] Are you now , , , , never or living with a partner? [facility] How often to you hav e a drink containing alcohol? Monthly or less [facility] How many standard dr inks containing alcohol do you have on a typical day? 3 or 4 [facility] How often do you hav e 6 or more drinks on 1 occasion? Less than monthly [facility] How hard is it for y ou to pay for the very basics like food, housing, medical care, and heating Not very hard [facility] The food that (I/we) bought just didn't last, and (I/we) didn't have money to get more. Never true [facility] In the past 12 month s, was there a time when you were not able to pay the mortgage or rent on time? Yes [facility] How often do you nee d to have someone help you when you read instructions, pamphlets, or other written material from your doctor or pharmacy [SILS] Never [facility] Within the last year , have you been raped or forced to have any kind of sexual activity by your partner or ex-partner? No [facility] Are you now , , , , never or living with a partner? [facility] How hard is it for y ou to pay for the very basics like food, housing, medical care, and heating Somewhat hard [facility] Do you feel stress - tense, restless, nervous, or anxious, or unable to sleep at night because your mind is troubled all the time - these days [OSQ] Rather much [facility] History of Present illness Narrative 03-23-2025 Shiela Arrington NP - 03/23/2025 2:15 PM IGGY CHILDS - 03/23/2025 1:20 PM Jazmin Arrington NP - 03/23/2025 1:20 PM EDT Note Date & Type Note Facility 03-23-2025 History of Presen t illness Narrative Associated Problem(s): Mood disorder (CMS/HCC) Start lamictal Discussed red flag, and rash Fu in 6 weeks MDQ=negative PHQ 9=9 GAD7=19 Joints are hurting and aching all the time. Pt is having more headaches. Pt would like to talk about mood stabilizers so she is not feeling high highs and low lows. She would also like to get blood work done especially thyroid since her grandmother had graves disease. Pt is still have nausea, anxiety, and loss of appetite Images from the original note were not included. Thomas López is a 30 y.o. female presents with chief complaint of Weight Loss HPI: Here for recheck: not seen since 03/19, at that time was seen for unintentional weight loss. Depression /anxiety: no SI/HI/hallucinations. Mood is down, or feels like a roller coaster, does not have a strong support system, can get emotional easily, appetite: can fluctuate, but she started some weed which has brought weight from 114 now to 120. Sleep can fluctuate as well. When weight was down felt like heart palpitations, no bowel changes, no abd pain. Hard to stay focused (does have hx of adhd), +irritability and aggitation. Dx: PTSD and ADHD, no mood disorders. Does have a lot of mental illness in family, possible bipolar disorder. Does also have family hx grave's disease as well Currently works at [employer] in [place], as an Aide. No mental health struggles at work. SUBJECTIVE: MEDICATIONS: Current Outpatient Medications Medication Instructions lamoTRIgine (LaMICtal) 25 MG tablet 1 pill at bedtime for 2 weeks, then increase to 2 pills at bedtime Lo Loestrin Fe 1 MG-10 MCG / 10 MCG tablet 1 tablet, Oral, Every morning omeprazole (PRILOSEC) 20 mg, Oral, Daily before breakfast, Do not crush or chew. ALLERGIES: Allergies Allergen Reactions Penicillin G Other Reaction(s): unknown Penicillins REVIEW OF SYMPTOMS: Review of Systems Constitutional: Positive for fatigue. Negative for appetite change, chills and fever. HENT: Negative for congestion, ear pain and sore throat. Eyes: Negative for pain, discharge, redness and visual disturbance. Respiratory: Negative for cough, shortness of breath and wheezing. Cardiovascular: Negative for chest pain, palpitations and leg swelling. Gastrointestinal: Negative for abdominal pain, blood in stool, constipation, diarrhea, nausea and vomiting. Genitourinary: Negative for difficulty urinating, dysuria and frequency. Musculoskeletal: Negative for arthralgias, back pain, joint swelling and myalgias. Skin: Negative for rash and wound. Neurological: Negative for dizziness, tremors, seizures, syncope and headaches. Psychiatric/Behavioral: Positive for agitation and decreased concentration. Negative for behavioral problems, self-injury and suicidal ideas. The patient is nervous/anxious. Hematological: Does not bruise/bleed easily. Endocrine: Negative for polydipsia, polyphagia and polyuria. Allergic/Immunologic: Negative for environmental allergies and food allergies. PAST MEDICAL HISTORY Past Medical History: Diagnosis Date Dysfunctional uterine bleeding Hemorrhoids History of medical treatment Had chickenpox vaccine Ovarian cyst Pelvic congestion Seasonal allergies History reviewed. No pertinent surgical history. family history includes Bipolar disorder in her brother, father, and sister; Cervical cancer in her mother; Eczema in her maternal grandfather; Mental illness in her brother, father, and sister; Skin cancer in her maternal grandmother; Stroke in her maternal grandfather; Thyroid disease in her maternal grandmother. OBJECTIVE: Visit Vitals BP 110/68 (BP Location: Left arm, Patient Position: Sitting, BP Cuff Size: Adult long) Pulse 78 Temp 98.2 F (Temporal) Resp 18 Wt 120 lb 6.4 oz SpO2 98% BMI 20.67 kg/m Smoking Status Never BSA 1.57 m Physical Exam Vitals and nursing note reviewed. Constitutional: General: She is not in acute distress. Appearance: Normal appearance. HENT: Head: Normocephalic and atraumatic. Right Ear: External ear normal. Left Ear: External ear normal. Nose: Nose normal. Mouth/Throat: Mouth: Mucous membranes are moist. Eyes: Extraocular Movements: Extraocular movements intact. Conjunctiva/sclera: Conjunctivae normal. Neck: Vascular: No carotid bruit. Cardiovascular: Rate and Rhythm: Normal rate and regular rhythm. Pulses: Normal pulses. Heart sounds: Normal heart sounds. Pulmonary: Effort: Pulmonary effort is normal. Breath sounds: Normal breath sounds. Abdominal: General: Bowel sounds are normal. There is no distension. Palpations: Abdomen is soft. There is no mass. Tenderness: There is no abdominal tenderness. Musculoskeletal: General: Normal range of motion. Cervical back: Normal range of motion and neck supple. Skin: General: Skin is warm and dry. Capillary Refill: Capillary refill takes 2 to 3 seconds. Findings: No rash. Neurological: General: No focal deficit present. Mental Status: She is alert and oriented to person, place, and time. Psychiatric: Mood and Affect: Mood normal. Behavior: Behavior normal. Thought Content: Thought content normal. Judgment: Judgment normal. Comments: tearful ASSESSMENT AND PLAN: Follow up in about 6 weeks (around 05/04/2025) for Recheck. Problem List Items Addressed This Visit Unintentional weight loss of more than 10 pounds Relevant Orders CBC and differential Comprehensive metabolic panel TSH T4, free T3, free Thyroid peroxidase and thyroglobulin antibodies Sedimentation rate, automated Urinalysis with reflex microscopic (clean catch) POCT , urine Elevated serum protein level Relevant Orders Comprehensive metabolic panel Mood disorder (CMS/HCC) - Primary Start lamictal Discussed red flag, and rash Fu in 6 weeks MDQ=negative PHQ 9=9 GAD7=19 Relevant Medications lamoTRIgine (LaMICtal) 25 MG tablet documented in this encounter [facility] Instructions 03-23-2025 Patient Instructions Note Date & Type Note Facility 03-23-2025 Instructions Shiela Arrington NP - 03/23/2025 1:20 PM EDT Start lamotrigine 25mg at bedtime for 2 weeks, then increase to 2 pills for a total of 50mg Get labs checked documented in this encounter [facility] History of Present illness Narrative 07-19-2024 DEN Patiño - 07/19/2024 3:30 PM EDT Note Date & Type Note Facility 07-19-2024 History of Presen t illness Narrative Reason for Appointment: Patient ID: Thomas López is a 29 y.o. female who presents for STI Screening Patient presents today for Acute Visit. MEDICATIONS Current Outpatient Medications Medication Instructions Lo Loestrin Fe 1 MG-10 MCG / 10 MCG tablet 1 tablet, Oral, Every morning omeprazole (PRILOSEC) 20 mg, Oral, Daily before breakfast, Do not crush or chew. ALLERGIES Allergies Allergen Reactions Penicillin G Other Reaction(s): unknown Penicillins PROBLEMS Active Ambulatory Problems Diagnosis Date Noted Gastroesophageal reflux disease without esophagitis 11/17/2023 Abnormal vaginal bleeding 01/29/2024 Menorrhagia with irregular cycle 01/29/2024 Pelvic congestion syndrome 01/29/2024 Attention-deficit hyperactivity disorder, combined type ([facility]) 01/29/2024 URI, acute 01/29/2024 Unintentional weight loss of more than 10 pounds 03/17/2024 SOWMYA (generalized anxiety disorder) ([facility]) 03/17/2024 Elevated serum protein level 03/26/2024 Yeast infection 03/26/2024 Resolved Ambulatory Problems Diagnosis Date Noted Gastro-esophageal reflux disease without esophagitis 11/17/2023 Past Medical History: Diagnosis Date Dysfunctional uterine bleeding Hemorrhoids History of medical treatment Ovarian cyst Pelvic congestion Seasonal allergies HISTORY PAST MEDICAL HISTORY SOCIAL HISTORY Past Medical History: Diagnosis Date Dysfunctional uterine bleeding Hemorrhoids History of medical treatment Had chickenpox vaccine Ovarian cyst Pelvic congestion Seasonal allergies Social History Tobacco Use Smoking status: Never Smokeless tobacco: Not on file Substance Use Topics Alcohol use: Never Comment: caffeine:none Drug use: Never FAMILY HISTORY Family History Problem Relation Name Age of Onset Cervical cancer Mother Bipolar disorder Father Mental illness Father Mental illness Sister Bipolar disorder Sister Bipolar disorder Brother Mental illness Brother Skin cancer Maternal Grandmother Thyroid disease Maternal Grandmother Eczema Maternal Grandfather Stroke Maternal Grandfather SURGICAL HISTORY History reviewed. No pertinent surgical history. REVIEW OF SYSTEMS Review of Systems: Review of Systems Constitutional: Negative. HENT: Negative. Eyes: Negative. Respiratory: Negative. Cardiovascular: Negative. Gastrointestinal: Negative. Genitourinary: Negative. Musculoskeletal: Negative. Skin: Negative. Neurological: Negative. All other systems reviewed and are negative. Hematological: Negative. Endocrine: Negative. Allergic/Immunologic: Negative. OBJECTIVE Objective: Physical Exam Constitutional: Appearance: Normal appearance. She is well-developed. Genitourinary: Right Labia: No rash. Left Labia: No rash. No vaginal discharge or erythema. Cardiovascular: Rate and Rhythm: Normal rate and regular rhythm. Pulmonary: Effort: Pulmonary effort is normal. Breath sounds: Normal breath sounds. Abdominal: General: Bowel sounds are normal. There is no distension. Palpations: Abdomen is soft. Tenderness: There is no abdominal tenderness. There is no guarding or rebound. Musculoskeletal: General: No swelling. Normal range of motion. Right lower leg: No edema. Left lower leg: No edema. Neurological: Mental Status: She is alert and oriented to person, place, and time. Skin: General: Skin is warm and dry. Psychiatric: Mood and Affect: Mood normal. Behavior: Behavior normal. Vitals and nursing note reviewed. Exam conducted with a filler shredder present. Vitals: Estimated body mass index is 22.55 kg/m as calculated from the following: Height as of 03/17/24: 5' 4 . Weight as of this encounter: 131 lb 6.4 oz. BP: 110/60 No LMP recorded (within months). ASSESSMENT & PLAN ICD-10-CM 1. Exposure to STD Z20.2 SURESWAB(R) ADVANCED VAGINITIS PLUS, TMA CHLAMYDIA TRACHOMATIS (GENITO/STI) Neisseria gonorrhea DNA probe, direct Patient presents today for STI check. Cultures obtained without difficulty. Patient to return in August for annual. Documented by Radha Jameson LPN on behalf of: DEN Patiño documented in this encounter [facility] History of Present illness Narrative 12-08-2023 [...] nursing note reviewed. Exam conducted with a filler shredder present. Vitals: Estimated body mass index is 25.25 kg/m as calculated from the following: Height as of 23: 5' 4 . Weight as of this [...] of: DEN Patiño documented in this encounter [facility] Evaluation note 05-28-2022 Note Date & [...] do not improve or worsen with treatment [facility] Other Evaluation note Note Date & Type Note Facility Evaluation note No Information [facility] Other Evaluation note Note Date & Type Note Facility Evaluation note Diagnosis Well woman exam with routine gynecological exam Routine gynecological examination Vaginal discharge Leukorrhea, not specified as infective STD exposure Encounter for surveillance of contraceptive pills documented in this encounter [facility] Evaluation note Note Date & Type Note Facility Evaluation note Diagnosis Exposure to STD documented in this encounter [facility] Evaluation note Note Date & Type Note Facility Evaluation note Diagnosis Unintentional weight loss of more than 10 pounds- Primary SOWMYA (generalized anxiety disorder) ([facility]) Generalized anxiety disorder Gastroesophageal reflux disease without esophagitis Esophageal reflux Mood disorder ([facility])- Primary Unspecified episodic mood disorder Unintentional weight loss of more than 10 pounds Elevated serum protein level documented in this encounter [facility] Summary Purpose Family History No Family History Records FoundNo Family History Records FoundNo Family History Records Found Advance Directives No Advanced Directives Records FoundNo Advanced Directives Records FoundNo Advanced Directives Records Found Additional Source Comments INFORMATION SOURCE (unrecogn ized section and content) DATE CREATED AUTHOR 04/20/2018 Kg Miller [facility] DATE CREATED AUTHOR AUTHOR'S ORGANIZ ATION 09/06/2022 [facility] DATE CREATED AUTHOR AUTHOR'S ORGANIZ ATION 03/26/2025 [facility] dical Specialists EPIC REASON FOR VISIT (unrecogniz ed section and content) Reason Comments Well Women Visit STI Screening Reason Comments STI Screening Reason Comments Weight Loss Care Teams (unrecognized sec tion and content) [employer] Relationship Specialty Start Date End Date Mika Pickard MD [address] [place] [address] PCP - General Family Medicine 01/29/24 Rosa Pearl PA [address] [place] [address] [place] [address] [facility] - [facility] 04/26/24 Shiela Arrington NP [address] [place] [address] Nurse Practitioner Family Medicine 01/29/24 [employer] Relationship Specialty Start Date End Date Mika Pickard MD [address] [place] [id number] PCP - General Family Medicine 01/29/24 Rosa Pearl PA [address] [place] [address] [place] [address] PCP - [facility] 04/26/24 Shiela Arrington NP [address] [place] [address] Nurse Practitioner Family Medicine 01/29/24 [employer] Relationship Specialty Start Date End Date Mika Pickard MD [address] [place] [address] PCP - General Family [facility] 01/29/24 Rosa Pearl PA [address] [place] [address] [place] [address] [facility] 10/27/24 Shiela Arrington, HOMAR [address] [place] [address] Nurse Practitioner Family [facility] 01/29/24 [employer] Relationship Specialty Start Date End Date Mika Pickard MD [address] [place] [address] PCP - General [facility] 01/29/24 Rosa Pearl PA [address] [place] [address] [place] [address] [facility] 10/27/24 Shiela Arrington NP [address] [place] [address] Nurse Practitioner Family Medicine 01/29/24 [employer] Relationship Specialty Start Date End Date Mika Pickard MD [address] [place] [address] PCP - General Family [facility] 01/29/24 Rosa Pearl PA [address] [place] [address] [place] [address] [facility] 10/27/24 Shiela Arrington NP [address] [place] [address] Nurse Practitioner Family Medicine 01/29/24 FOR RECORDS PERTAINING TO PATIENTS WHO ARE [...] BE BASED ON THE PRIMARY CLINICAL RECORDS. [employer] provides no warranty or guarantee of the accuracy or completeness of information in this document.
--- OUTSIDE RECORDS SUMMARY | 2025-06-01 20:06 | XMS_ITS | Encounter Summary ---
Author Organization [facility] Address [address] [place] [address] Care Team Providers Care Hand Cloth Cutter Name Role Phone Mika Pickard MD Primary Care Provider [phone] Shiela Arrington NP Unavailable [phone] Rosa Vaengas Unavailable Shiela Arrington NP Unavailable [phone] Rosa Vanegas Unavailable Reason for Visit * Reason Comments Med Refill Encounter Details Date Type Department Care Team (Late st Contact Info) Description 03/17/2024 Refill [facility] [address] [place] [address] Shiela Arrington NP [address] [place] [address] Gastro-esophageal reflux disease without esophagitis Social History Tobacco Use Types Packs/Day Years [...] Never 01/28/2024 How often do you attend [facility] or faith services? 1 to 4 times per year 01/28/2024 Do you belong to any clubs o r organizations such as sikh groups, unions, fraternal or athletic groups, or [...] place to sleep or slept in a senior living (including now)? No 01/28/2024 Education Answer Date [...] on file documented as of this encounter Functional Status * Over the past 2 weeks, how often have you been bothered by any of the following problems? Question Answer Date of Assessment Author Little interest or pleasure in doing things Not at all 03/17/2024 4:20 PM EDT ELA CUELLO Feeling down, depressed, or hopeless Several days 03/17/2024 4:20 PM EDT ELA CUELLO Patient Health Questionnaire -2 Score 1 03/17/2024 4:20 PM EDT ELA CUELLO documented as of this encounter Plan of Treatment Upcoming Encounters Date Type Department Care Team (Late st Contact Info) Description 06/06/2026 10:00 AM EDT Procedure Visit [facility] [address] [facility] [place] [id number] Rosa Vanegas PA [address] [place] [address] documented as of this encounter Visit Diagnoses Diagnosis Gastro-esophageal reflux disease without esophagitis documented in this encounter Care Teams Hand Cloth Cutter Relationship Specialty Start Date End Date Mika Pickard MD [address] [place] [address] PCP - General Family Medicine 01/29/24 Rosa Vanegas PA [address] [place] [address] [place] [address] PCP - [facility] 04/26/24 Shiela Arrington NP [address] [place] [id number] PCP - [facility] 07/27/2410/26 Rosa Vanegas PA [address] [place] [address] [place] [address] [facility] - [facility] 10/27/24 Shiela Arrington NP [address] [place] [id number] Nurse Practitioner Family Medicine 01/29/24 documented as of this encounter
--- OUTSIDE RECORDS SUMMARY | 2025-06-01 20:06 | XMS_ITS | Encounter Summary ---
Author Organization [facility] Address [address] [place] [address] Care Team Providers Care Portable Pinch Riveter Name Role Phone Mika Pickard MD Primary Care Provider [phone] Shiela Arrington NP Unavailable [phone] Rosa Vanegas Unavailable Shiela Arrington NP Unavailable [phone] Rosa Vanegas Unavailable Reason for Visit * Reason Comments Med Refill Encounter Details Date Type Department Care Team (Late st Contact Info) Description 03/19/2024 Refill [facility] [address] [place] [address] Shiela Arrington NP [address] [place] [address] Gastro-esophageal reflux disease without esophagitis [...] Never 01/28/2024 How often do you attend [facility] or hindu services? 1 to 4 times per year [...] place to sleep or slept in a fdc (including now)? No 01/28/2024 Education Answer Date [...] EDT Procedure Visit [facility] [address] [place] [address] Rosa Vanegas PA [address] [facility] [place] [address] documented as of this encounter Visit Diagnoses Diagnosis Gastro-esophageal reflux disease without esophagitis documented in this encounter Care Teams Portable Pinch Riveter Relationship Specialty Start Date End Date Mika Pickard MD [address] [place] [address] PCP - General Family Medicine 01/29/24 Rosa Vanegas PA [address] [place] [address] PCP - [facility] 04/26/24 Shiela Arrington NP [address] [place] [address] PCP - [facility] 07/27/2410/26 Rosa Vanegas PA [address] [place] [address] [place] [address] [facility] - [facility] 10/27/24 Shiela Arrington NP [address] [place] [address] Nurse Practitioner Family Medicine 01/29/24 documented as of this encounter
--- OUTSIDE RECORDS SUMMARY | 2025-06-01 20:06 | XMS_ITS | Encounter Summary ---
Author Organization [facility] Address [address] [place] [address] Care Team Providers Care Community Service Organization Director Name Role Phone Mika Pickard MD Primary Care Provider [phone] Shiela Arrington NP Unavailable [phone] Rosa Vanegas Unavailable Shiela Arrington NP Unavailable [phone] Rosa Vanegas Unavailable Encounter Details Date Type Department Care Team (Late st Contact Info) Description 03/24/2024 Clinisync Result Encounter [facility] External Department Unsolicited Shiela Arrington NP [address] [facility] [place] [address] Social History Tobacco Use Types Packs/Day Years [...] often do you attend chur ch or episcopalian services? 1 to 4 times per year 01/28/2024 Do you belong to any clubs o r organizations such as quaker groups, unions, fraternal or athletic groups, or [...] place to sleep or slept in a prison (including now)? No 01/28/2024 Education Answer Date [...] EDT Procedure Visit [facility] [address] [facility] [place] [address] Rosa Vanegas PA [address] [facility] [place] [address] documented as of this encounter Procedures Procedure Name Priority Date/Time Associated Diagnosis Comments XR CHEST 2V 03/24/2024 3:48 PM EDT [facility] THYROID ANTIBODIES Routine 03/24/2024 12:59 PM EDT HCG QUALITATIVE URINE Routine 03/24/2024 12:48 PM EDT documented in this encounter Results * XR CHEST 2V (03/24/2024 3:48 PM EDT) Anatomical Region Laterality Modality Other 03/24/2024 3:48 PM EDT Narrative 03/24/2024 3:51 PM EDT The [address] [address] XRay Report Signed Patient: THOMAS LÓPEZ MR#: [id number] : 1995 Acct:[id number] Age/Sex: 29 / F ADM Date: 03/24/24 Loc: LAB Attending Dr: Shiela Arrington TILT WALL SUPERVISOR Ordering Physician: Shiela Arrington NP Date of Service: 03/24/24 Procedure(s): XR chest 2V Accession Number(s): [id number] cc: Shiela Arrington NP [address] [address] Patient Name: THOMAS LÓPEZ MRN: [id number] date: 1995 Sex: F Assigned Patient Location: LAB Current Patient Location: LAB Accession/Order Number: [id number] Exam Date: 03/24/2024 13:05 Report Date: 03/24/2024 15:48 At the request of: SHIELA ARRINGTON Procedure: XR chest 2V EXAM: XR chest 2V HISTORY: Unintentional Weight Loss Of More Than 10 Pounds COMPARISON: 06/05/2021 TECHNIQUE: Upright PA and lateral chest x-ray FINDINGS: The heart is not enlarged and the vasculature is not distended. No acute infiltrate, effusion or pneumothorax is identified. The osseous structures are grossly intact. Nipple jewelry is now noted. XR/XR chest 2V IMPRESSION: No acute infiltrate or evidence of cardiac decompensation. The overall appearance of the chest is essentially unchanged. Electronically authenticated by: RUFINA RIZVI Date: 03/24/2024 15:48 Dictated By: Rufina Rizvi M.D. Signed By: 03/24/24 1551 DD/ 1548 TD/TT: Tube Cutter: Procedure Note Radiology, Radiologist, MD - 03/24/2024 The [place] [id number] XRay Report Signed Patient: THOMAS LÓPEZ MMR#: [id number] : 1995Acct:[id number] Age/Sex: 29 / FADM Date: 03/24/24 Loc: LAB Attending Dr: Shiela Arrington NP Ordering Physician: Shiela Arrington NP Date of Service: 03/24/24 Procedure(s): XR chest 2V Accession Number(s): [id number] cc: Shiela Arrington NP The [place] [address] Patient Name: THOMAS LÓPEZ MRN: [id number] date: 1995 Sex: F Assigned Patient Location: LAB Current Patient Location: LAB Accession/Order Number: [id number] Exam Date: 03/24/2024 13:05 Report Date: 03/24/2024 15:48 At the request of: SHIELA ARRINGTON Procedure: XR chest 2V EXAM: XR chest 2V HISTORY: Unintentional Weight Loss Of More Than 10 Pounds COMPARISON: 06/05/2021 TECHNIQUE: Upright PA and lateral chest x-ray FINDINGS: The heart is not enlarged and the vasculature is not distended.No acute infiltrate, effusion or pneumothorax is identified. The osseous structures are grossly intact. Nipple jewelry is now noted. XR/XR chest 2V IMPRESSION: No acute infiltrate or evidence of cardiac decompensation. The overall appearance of the chest is essentially unchanged. Electronically authenticated by: RUFINA RIZVI Date: 03/24/2024 15:48 Dictated By: Rufina Rizvi M.D. Signed By:03/24/24 1551 DD/ 1548 TD/TT: Tube Cutter: Shiela Arrington TILT WALL SUPERVISOR [facility] Final Result * [facility] THYROID ANTIBODIES (03/24/2024 12:59 PM EDT) THYROID PEROXIDASE (TPO) AB 16 0 - 34 IU/mL [facility] THYROGLOBULIN ANTIBODY <1.0 0.0 - 0.9 IU/mL [facility] Comment: Thyroglobulin Antibody measured by [facility] Annette Methodology It should be noted that the presence of thyroglobulin antibodies may not be pathogenic nor diagnostic, especially at very low levels. The assay customer associate has found that four percent of individuals without evidence of thyroid disease or autoimmunity will have positive TgAb levels up to 4 IU/mL. Performed at: [address] [id number] Sports Marketing Specialist: Aldo Mauricio PhD, Phone: [phone] 03/24/2024 12:5 9 PM EDT 03/24/2024 1:06 PM EDT Narrative [facility] - 03/25/2024 5:10 PM EDT us Shiela Arrington TILT WALL SUPERVISOR [facility] Final Result [facility] * HCG QUALITATIVE URINE (03/24/2024 12:48 PM EDT) HCG QUALITATIVE URINE* NEGATIVE NEGATIVE [facility] 03/24/2024 12:4 8 PM EDT 03/24/2024 1:06 PM EDT Narrative [facility] - 03/24/2024 1:41 PM EDT us Shiela Arrington TILT WALL SUPERVISOR LAB BLOOD ORDERABLES Final Resu lt Performing Organization Address City/[facility]/ZIP Co de Phone Number [facility] documented in this encounter Visit Diagnoses Not on filedocumented in this encounter Care Teams Community Service Organization Director Relationship Specialty Start Date End Date Mika Pickard MD [address] [place] [address] PCP - General Family Medicine 01/29/24 Rosa Vanegas PA [address] [place] [address] [place] [address] PCP - [facility] 04/26/24 Shiela Arrington NP [address] [place] [address] PCP - [facility] 07/27/2410/26 Rosa Vanegas PA [address] [place] [address] [place] [address] PCP - [facility] 10/27/24 Shiela Arrington NP [address] [place] [address] Nurse Practitioner Family Medicine 01/29/24 documented as of this encounter
[2025-06-06 15:13] LABS: Age Gdln ACOG Testing Note (.); IGP, rfx Aptima HPV ASCU Note (.)
== END 2025-06-01 20:02 | disposition home or self-care (01) ==
LOC: LAB 20:01
PROVIDERS: PCP Nurse Practitioner; Visit Provider Physician Assistant
DX: Z01.419 Encounter for gynecological examination (general) (routine) without abnormal findings (principal)
CPT/HCPCS: 88175

== ENCOUNTER 2025-09-26 09:15 | Outpatient (OUT) | payer SELFPAY ==
--- OUTSIDE RECORDS SUMMARY | 2025-09-26 09:22 | XMS_ITS | Clinical Summary ---
Author Organization [facility] Address [id number] [address] [place] [address] Care Team Providers Care Content Designer Name Role Phone No Pcp, No Pcp Primary Care Provider Unavailabl e Allergies No known active allergies Medications MedicationSigDispense QuantityRefillsLast FilledStart DateEnd DateStatus vit calc,iron,folic ( VITAMIN ORAL) Take 1 tablet by mouth daily.Active Active Problems ProblemNoted DateDiagnosed DateFetal anomaly suspected but not found06/02/2019 Family History Medical HistoryRelationNameCommentsMental illnessFatherbipolarHypertension Maternal GrandfatherStrokeMaternal GrandfatherThyroid diseaseMaternal GrandmotherCancerMothercervicalMental illnessSisterRelationNameStatusComments FatherMaternal GrandfatherMaternal GrandmotherMotherSister Social History Tobacco UseTypesPacks/DayYears UsedDateSmoking Tobacco: NeverSmokeless Tobacco: NeverAlcohol UseStandard Drinks/WeekCommentsNot Currently0 (1 standard drink = 0.6 oz pure alcohol)ChildcareAnswerDate CotyvfalDygplozfbIfqimes17/12/2019 EmploymentAnswerDate JqgzqnzzChcacotefaYcfqvwu64/12/2019Purpose - LifeAnswerDate RecordedPurpose and direction in bnhvKjooucy41/11/2021CommentsNoSex and Gender InformationValueDate RecordedSex Assigned at BirthNot on fileLegal Sex Habpxq8806/01/2015 11:52 AM EDTGender IdentityNot on fileSexual OrientationNot on file Last Filed Vital Signs Vital SignReadingTime TakenCommentsBlood Rhqjscdl868/6008 8:50 AM EDT Eabhl9108 8:50 AM EDTTemperature--Respiratory Rate--Oxygen Saturation-- Inhaled Oxygen Concentration--Oocebi91.6 kg (127 lb)05/28/2019 2:19 PM EDTHeight 162.6 cm (5' 4 )05/28/2019 2:19 PM EDTBody Mass Index21.808 2:19 PM EDT Plan of Treatment Health MaintenanceDue DateLast DoneCommentsDepression Sugmrdwrl75/01/2009Tobacco Rqumfurps35/01/2009dult BMI Qwywphpms95/01/2015DTaP,Tdap and Td Vaccines (1 - Tdap)01/26/2016Pap Smear2018Influenza Nfzuwcw1306/27/2025 Medical Devices Not on file Insurance Care Teams Team MemberRelationshipSpecialtyStart DateEnd Date No Pcp, [place] [address] [facility]
--- OUTSIDE RECORDS SUMMARY | 2025-09-26 09:22 | XMS_ITS | Clinical Summary ---
Author Organization [facility] Healthcare Address [address] [place] [address] Care Team Providers Care Machine Hostler Name Role Phone Mika Pickard MD Primary Care Provider [phone] Shiela Arrington NP Unavailable [phone] Rosa Vanegas Unavailable Allergies Active AllergyReactionsCriticalityNoted DateCommentsPenicillin G012/08/2023 Other Reaction(s): unknown Zihoewmjlpb44/29/2023 Medications MedicationSigDispense QuantityRefillsLast FilledStart DateEnd DateStatus omeprazole (PriLOSEC) [address] capsule Indications:Gastroesophageal reflux disease without esophagitisTake 1 capsule (20 mg) by mouth in the morning. Take before meals. Do not crush or chew.. 30 capsule 4Active Lo Loestrin Fe 1 MG-10 MCG / 10 MCG tablet Indications:Encounter for surveillance of contraceptive pillsTAKE 1 TABLET BY MOUTH EVERY DAY IN THE MORNING 28 tablet 5Active lamoTRIgine (LaMICtal) 25 MG tablet Indications:Mood disorder1 pill at bedtime for 2 weeks, then increase to 2 pills at bedtime 60 tablet 5Active medroxyPROGESTERone (Depo-Provera) 150 MG/ML suspension prefilled syringe injection syringe Indications:Uses controlINJECT 1 ML (150 MG) INTO THE SHOULDER, THIGH, OR BUTTOCKS EVERY 3 MONTHS 1 mL 5Active Active Problems ProblemNoted DateDiagnosed DateMood vukatcdc95/28/2025 Assessment & Plan (03/23/2025 2:44 PM EDT): Start lamictal Discussed red flag, and rash Fu in 6 weeks MDQ=negative PHQ 9=9 GAD7=19 Elevated serum protein level03/26/2024Unintentional weight loss of more than 10 ehtrkw0803/17/2024 Assessment & Plan (03/17/2024 5:04 PM EDT): Will check labs and CXR, however I do suspicion this is more anxiety related Will cont with work up SOWMYA (generalized anxiety disorder)03/17/2024 Assessment & Plan (03/17/2024 5:04 PM EDT): Start buspar 5mg BID Fu in 3-4 weeks Check labs Abnormal vaginal zpaaadhy40/04/2024Menorrhagia with irregular cycle01/29/2024 Pelvic congestion patlukpu42/04/2024ttention-deficit hyperactivity disorder, combined type01/29/2024Gastroesophageal reflux disease without esophagitis 11/17/2023 Assessment & Plan (03/17/2024 5:03 PM EDT): Does have hx of this, concern with stressors and weight loss possible ulcer Will start back on PPI Check labs Resolved Problems ProblemNoted DateDiagnosed DateResolved DateYeast tyufaeqdf40 URI, acute Assessment & Plan (01/29/2024 10:52 AM EDT): Symptoms over 3 days, at this point we discussed testing for COVID and flu, she declined as it would not change my treatment plan at this point Fluids, rest, OCT mucinex DM, atb , steroids, as well as inhaler Fu if not better Gastro-esophageal reflux disease without iuftpbnfbde26 Encounters DateTypeDepartmentCare FzdzOpuamwvkqec32/22/2025Refill [facility] [address] [place] [address] [place] [address] Rosa Vanegas PA Uses controlfrom Last 3 Months Immunizations ImmunizationAdministration DatesNext DueDTaP, Luypeaquqsj04/11/2002,06/29/1998, 1997,1997,1997HPV, Ysnxrhlzpuyy05/16/2013,03/18/2013Hep A, ped/adol, 2 dose10/11/2013,03/18/2013Hep B, Adolescent or Vuznomgjt1997, 1997HiB, bemiyenancz11/03/1998,1997,1997Hib / Hep B1 IPV02/04/2002Influenza, injectable, quadrivalent, preservative free07/27/2023, 01/30/2023,07/14/2020MMR02/04/2002,03/16/1998Meningococcal KJK1Z9810/11/2013OPV 03/16/1998,1997,1997Tdap02/24/20139506Gadvlgscb47/18/2020,03/16/1998 Family History Medical HistoryRelationNameCommentsBipolar disorderBrotherMental illnessBrother Bipolar disorderFatherMental illnessFatherEczemaMaternal GrandfatherStroke Maternal GrandfatherSkin cancerMaternal GrandmotherThyroid diseaseMaternal GrandmotherCervical cancerMotherBipolar disorderSisterMental illnessSister RelationNameStatusCommentsBrotherFatherAliveMaternal GrandfatherMaternal GrandmotherMotherAlivePaternal GrandfatherAlivePaternal GrandmotherAliveSister Son 1AliveSon 2Alive Social History Tobacco UseTypesPacks/DayYears UsedDateSmoking Tobacco: Never Tobacco Cessation:Counseling Given: Not Answered Alcohol UseStandard Drinks/WeekCommentsNever0 (1 standard drink = 0.6 oz pure alcohol)caffeine:arjeL1996 Health LiteracyAnswerDate RecordedHow often do you need to have someone help you when you read instructions, pamphlets, or other written material from your doctor or pharmacy?Never03/16/2025Humiliation, Afraid, Rape, and Kick questionnaireAnswerDate RecordedWithin the last year, have you been afraid of your partner or ex-partner?Patient elhaagsa01/21/2025 Within the last year, have you been humiliated or emotionally abused in other ways by your partner or ex-partner?Patient /21/2025Within the last year, have you been kicked, hit, slapped, or otherwise physically hurt by your partner or ex-partner?Patient aynkdukd86/21/2025Within the last year, have you been raped or forced to have any kind of sexual activity by your partner or ex-partner?No03/16/2025Social Connection and Isolation PanelAnswerDate Recorded In a typical week, how many times do you talk on the phone with family, friends, or neighbors?Once a week03/16/2025How often do you get together with friends or relatives?Once a week03/16/2025How often do you attend taoism or lutheran services?Patient avlqjraj81/21/2025Do you belong to any clubs or organizations such as taoism groups, unions, fraternal or athletic groups, or school groups? Yes03/16/2025How often do you attend meetings of the clubs or organizations you belong to?1 to 4 times per year03/16/2025re you , , , , never , or living with a partner?Txhpdazc76/21/2025UDIT-C AnswerDate RecordedQ1: How often do you have a drink containing alcohol?Monthly or less03/16/2025Q2: How many drinks containing alcohol do you have on a typical day when you are drinking?3 or Q3: How often do you have six or more drinks on one occasion?Less than fdvzenk5903/16/2025Overall Financial Resource Strain (CARDIA)AnswerDate RecordedHow hard is it for you to pay for the very basics like food, housing, medical care, and heating?Somewhat hard03/16/2025 PHQ-2AnswerDate RecordedPatient Health Questionnaire-2 Wsrzb462Finlifepoint hospitals [place] [facility] Occupational [facility] - Occupational Stress QuestionnaireAnswerDate RecordedDo you feel stress - tense, restless, nervous, or anxious, or unable to sleep at night because yourmind is troubled all the time - these days?Rather much03/16/2025Exercise Vital SignAnswerDate RecordedOn average, how many days per week do you engage in moderate to strenuous exercise (like a brisk walk)?2 days03/16/2025On average, how many minutes do you engage in exercise at this level?90 min03/16/2025Hunger Vital SignAnswerDate RecordedWithin the past 12 months, you worried that your food would run out before you got the money to buy more.Never true03/16/2025Within the past 12 months, the food you bought just didn't last and you didn't have money to get more.Never true03/16/2025PRAPARE - TransportationAnswerDate RecordedIn the past 12 months, has lack of transportation kept you from medical appointments or from getting medications?No 03/16/2025In the past 12 months, has lack of transportation kept you from meetings, work, or from getting things needed for daily living?No03/16/2025 Housing Stability Vital SignAnswerDate RecordedIn the last 12 months, was there a time when you were not able to pay the mortgage or rent on time?Yes01/28/2024 In the last 12 months, how many places have you lived?In the last 12 months, was there a time when you did not have a steady place to sleep or slept in bentleyelter (including now)?No01/28/2024Housing Stability Vital SignAnswerDate RecordedIn the last 12 months, was there a time when you were not able to pay the mortgage or rent on time?No03/16/2025Number of Times Moved in the Last Year Not on file03/16/2025t any time in the past 12 months, were you homeless or living in a mcfp (including now)?No03/16/2025EducationAnswerDate RecordedWhat is the highest level of school you have completed or the highest degree you have received?High school oiowdxla72/28/2023CommentsNoSex and Gender InformationValueDate RecordedSex Assigned at VeukbHsntcu74/28/2023 12:37 PM EDT Legal AtmTrgepu70/15/2023 7:07 PM EDTGender YaamsailAfsgwj32/28/2023 12:37 PM EDTSexual OrientationNot on fileOccupationIndustryJob Start DateJob End DateCook Not on fileNot on fileNot on file Last Filed Vital Signs Vital SignReadingTime TakenCommentsBlood Bgvrhkmq478/6008 2:17 PM EDT Imawg469703/23/2025 1:28 PM QFIVfuakiccifz51.8 ??C (98.2 ??F)03/23/2025 1:28 PM EDTRespiratory Sraa811803/23/2025 1:28 PM EDTOxygen Avhalvasxf66%03/23/2025 1:28 PM EDTInhaled Oxygen Concentration--Obzlam40.3 kg (122 lb)06/01/2025 2:17 PM EDT Oljgwk930.4 cm (5')06/01/2025 2:17 PM EDTBody Mass Index23.8306/01/2025 2:17 PM EDT Plan of Treatment DateTypeDepartmentCare Team (Latest Contact Info)Jvhdfvlufou37/11/2026 10:00 AM EDTProcedure Visit [facility] [address] [address] Rosa Vanegas PA [address] [facility] [place] [address] Health MaintenanceDue DateLast DoneCommentsCOVID-19 Vaccine ( season) 2025Influenza Vaccine (#1)51, 01/30/2023, 07/14/2020 Pneumococcal Vaccine: Pediatrics (0 to 5 Years) and At-Risk Patients (6 to 64 Years)Aged OutNo longer eligible based on patient's age to complete this topic Insurance Care Teams Team MemberRelationshipSpecialtyStart DateEnd Date Mika Pickard MD PCP - [facility]01/29/24 Rosa Vanegas PA [address] [place] [address] [place] [address] PCP - [facility]10/27/24 Shiela Arrington NP [facility]01/29/24
--- OUTSIDE RECORDS SUMMARY | 2025-09-26 09:34 | XMS_ITS | CCD ---
Author Organization [facility] Care Team Providers Care Production Line Manager Name Role Phone Jb Llamas Unavailable Unavailable NONE, XXXX Unavailable Unavailable PrabhuJb hyman Unavailable Unavailable NONE, XXXX Unavailable Unavailable Elle Ray Unavailable Antonella Petersen Unavailable REQUEST, DR STEIN LISTED Primary Care Unavaila nettie AYALA, DR VICKERS Attending Unavailable CHET, DR VICKERS Consulting Unavailable CHET, DR VICKERS Admitting Unavailable Unavailable Primary Care Provider UnavailMika Badillo MD Primary Care Provider Nury BLEACH PACKER, Shiela Unavailable Rosa Hall Unavailable Romina CRENSHAW, Rosa Unavailable SHIELA ARRINGTON Attending Unavailable ROSA PEARL Attending Unavailable ROSA PEARL Attending Unavailable Mika Pickard MD Primary Care Provider Nury BLEACH PACKER, Shiela Unavailable Rosa Hall Unavailable Nury BLEACH PACKER, Shiela Unavailable Rosa Hall Unavailable Allergies Allergy ClassificationReported Allergen(s)Allergy TypeDate of OnsetReaction(s) Facility (2 sources)Penicillin VDrug AllergyhivesNoalvin j. [facility] Other (17 sources)PenicillinsPropensity to adverse paajxoklq20-98-0948[facility] (16 sources)Penicillin GDrug Lxmtzvd21-58-7968IX[facility] Medications Current Medications MedicationDrug Class(es)DatesSig (Normalized)Sig (Original)Ethinyl Estradiol / Ferrous fumarate / Norethindrone (18 sources)EstrogenStart: 60-04-4458amfc 1 tablet by mouth once daily in the morningLo Loestrin Fe 1 MG-10 MCG / 10 MCG tablet Indications: Encounter for surveillance of contraceptivepills TAKE 1 TABLET BY MOUTH EVERY DAY IN THE MORNING 28 tablet 3 12/03/2024 ActiveStart: 54-20-3701inmr 1 tablet by mouth once daily in the morningLo Loestrin Fe 1 MG-10 MCG / 10 MCG tablet Indications: Encounter for surveillance of contraceptivepills TAKE 1 TABLET BY MOUTH EVERY DAY IN THE MORNING 28 tablet 3 06/22/2024 ActiveStart: 12-08-2023 End: 22-87-0748vzuh 1 tablet by mouth in the morningnorethindrone-ethinyl estradiol-iron (Lo Loestrin Fe) 1 MG-10 MCG / 10 MCG tablet Indications: Encou nter for surveillance of contraceptive pills Take 1 tablet by mouth in the morning. 28 tablet 11 12/08/2023 12/07/2024 ActiveStart: 12-01-2023 End: 66-96-8059tpaw 1 tablet by mouth in the morningnorethindrone-ethinyl estradiol-iron (Lo Loestrin Fe) 1 MG-10 MCG / 10 MCG tablet Indications: Encou nter for surveillance of contraceptive pills Take 1 tablet by mouth in the morning. 28 tablet 3 12/01/2023 12/08/2023 Discontinued (Reorder)Start: 12-01-2023 End: 80-50-5388juip 1 tablet by mouth in the morningnorethindrone-ethinyl estradiol-iron (Lo Loestrin Fe) 1 MG-10 MCG / 10 MCG tablet Indications: Encou nter for surveillance of contraceptive pills Take 1 tablet by mouth in the morning. 28 tablet 3 12/01/2023 03/22/2024 ActivelamoTRIgine 25 mg oral tablet (7 sources)Mood Stabilizer, Anti-epileptic AgentStart: 05-27-2963irnlHJLhtmv (LaMICtal) 25 MG tablet Indications: Mood disorder 1 pill at bedtime for 2 weeks, then increase to 2 pills at bedtime 60 tablet 1 03/23/2025 Active1 ml medroxyPROGESTERone acetate 150 mg/ml injection (4 sources)ProgestinStart: 27-03-8519hdtpspwISFIGDFTGppe (Depo-Provera) 150 MG/ML injection Indications: Uses control Inject 1 mL (150 mg) into the shoulder, thigh, or buttocks every 3 (three) months 1 mL 06/01/2025 Active methylPREDNISolone 4 mg oral tablet (3 sources)CorticosteroidStart: 09-19-3667stdcyeLELTAKPzhkpx 4 MG as directed Orally for daily dose take half with breakfast, half with dinner for 6 days May, Activeomeprazole 20 mg delayed release oral capsule (15 sources)Proton Pump InhibitorStart: 47-41-3082qhsz 1 capsule by mouth before mealtimeomeprazole (PriLOSEC) [address] capsule Indications: Gastroesophageal reflux disease without esophagitis Take 1 capsule (20 mg) by mouth in the morning. Take before meals. Do not crush or chew.. 30 capsule 1 03/17/2024 ActiveStart: 11-17-2023 End: 68-45-7282ycpu 1 capsule by mouth in the morningomeprazole (PriLOSEC) [address] capsule Indications: Gastro-esophageal reflux disease without esophagitis Take 1 capsule (20 mg) by mouth in the morning. 90 capsule 0 11/17/2023 02/15/2024 Active Completed/Discontinued Medications MedicationDrug Class(es)DatesSig (Normalized)Sig (Original)busPIRone hydrochloride 5 mg oral tablet (3 sources)Start: 04-16-2024 End: 13-58-8880iplp 1 tablet by mouth in the morningbusPIRone (Buspar) 5 MG tablet Indications: SOWMYA (generalized anxiety disorder) ([facility]) Take 1 tablet (5 mg) by mouth in the morning and 1 tablet (5 mg) before bedtime. 60 tablet 04/16/2024 07/19/2024 DiscontinuedDexamethasone (2 sources)CorticosteroidStart: 01-40-3203IRTMVCBEOFWPZ May, 6 mg fluconazole 150 mg oral tablet (3 sources)Azole AntifungalStart: 03-26-2024 End: 14-55-7850zchwrwxhkdc (Diflucan) 150 MG tablet Indications: Yeast infection 1 pill, repeat in 3 days 2 vfjulv1103/26/2024 07/19/2024 Discontinued Problems Active Problems Problem ClassificationProblemDateDocumented DateEpisodic/ChronicAnxiety disorders (12 sources)Generalized anxiety disorder; Translations: [Generalized anxiety disorder]Onset: 941083-12-5294QvqruvsLthozthsp-djvzgou, conduct, and disruptive behavior disorders (12 sources)Attention deficit hyperactivity disorder, combined type; Translations: [Attention-deficit hyperactivity disorder, combined type]Onset: 601605-22-4159SkuvvejMuqxpqkoqmhhl and procreative management (2 sources)Oral contraception; Translations: [Encounter for surveillance of contraceptive pills]24-21-8126BkkgszpeCzajsbuhsz disorders (20 sources)Gastroesophageal reflux disease without esophagitis; Translations: [Gastro-esophageal reflux disease without esophagitis]Onset: 11-17-2023 Resolved: 099345-95-8385AsrjeezXuznrzkdfywjl and screening for infectious disease (7 sources)Encounter for screening for human papillomavirus (HPV); Translations: [Exposure to sexually transmissible disorder]Onset: 823403-84-6821Earusjml Menstrual disorders (12 sources)Menometrorrhagia; Translations: [Excessive and frequent menstruation with irregular cycle]Onset: 615188-42-9551LwludclXreq disorders (10 sources)Mood disorder; Translations: [Unspecified mood [affective] disorder] Onset: 328989-15-2037VywgikhXnlyi female genital disorders (12 sources)Abnormal vaginal bleeding; Translations: [Abnormal uterine and vaginal bleeding, unspecified]Onset: 332806-53-7322HspfoiiUkjze female genital disorders (2 sources)Vaginal discharge; Translations: [Other specified noninflammatory disorders of vagina]78-80-0443BuisumeqCblfr screening for suspected conditions (not mental disorders or infectious disease) (4 sources)Encounter for screening for malignant neoplasm of cervix; Translations: [ENC SCREENING MALIG NEOPLASM CERV]Onset: 78-72-4029Ibasbfta Residual codes; unclassified (2 sources)Contraception ; Translations: [Other specified health status] 27-31-7867Ncdyvdwf Past or Other Problems Problem ClassificationProblemDateDocumented DateEpisodic/ChronicAllergic reactions (1 source)Allergic contact dermatitis due to plants, except foodOnset: 05-28-2022 Resolved: 25-05-7014PftwymjsWmgqjzb (12 sources)Mycosis; Translations: [Candidiasis, unspecified]Onset: 03-26-2024 Resolved: 623670-07-4774FpahbownSbcpl female genital disorders (12 sources)Pelvic congestion syndrome; Translations: [Other specified conditions associated with female genital organs and menstrual cycle]Onset: 896227-99-9164GdxneheuMfcuu hematologic conditions (14 sources)Increased serum protein level; Translations: [Abnormality of plasma protein, unspecified]Onset: 447077-33-7621LfrqdmqeXhgpz nutritional; endocrine; and metabolic disorders (14 sources)Unintentional weight loss; Translations: [Abnormal weight loss] Onset: 652753-62-2775SzcsrbtyWftbm upper respiratory infections (12 sources)Acute upper respiratory infection; Translations: [Acute upper respiratory infection, unspecified]Onset: 01-29-2024 Resolved: 028328-19-9724Rzieglto Results Test NameValueInterpretationReference RangeFacilityIGP,APTIMA HPV,AGE GDLNon 13-06-1338RAN GDLN ACOG TESTINGNote.NOMS HealthcareComment on above:TESTS RESULT FLAG UNITS REF RANGE LAB Clinician Provided Cytology Information Source.............Cervix;Endocervix No. of containers..01 ThinPrep Vial Age Algo ACOG Ingrid... FLAG LEGEND: L-Low Normal,H-High Normal,LL-Alert Low,HH-Alert High <-Panic Low,>-Panic High,A-Abnormal,AA-Critical Abnormal Performed at: 01 =[facility], [place] [address] Bea Crespo MD, IGP, RFX APTIMA HPV ASCUNote.NOMS HealthcareComment on above:TESTS RESULT FLAG UNITS REF RANGE LAB DIAGNOSIS: 02 NEGATIVE FOR INTRAEPITHELIAL LESION OR MALIGNANCY. Specimen adequacy: 02 Satisfactory for evaluation. No endocervical component is identified. Performed by: Elsa Kimble, Staff Weapons Officer ([facility]) . 02 Note: Note 02 The Pap smear is a screening test designed to aid in the detection of premalignant and malignant conditions of the uterine cervix. It is not a diagnostic procedure and should not be used as the sole means of detecting cervical cancer. Both false-positive and false-negative reports do occur. Test Methodology: Note 02 This liquid based ThinPrep(R) pap test was screened with the use of an image guided system. . 02 The HPV DNA reflex criteria were not met with this specimen result therefore, no HPV testing was performed. FLAG LEGEND: L-Low Normal,H-High Normal,LL-Alert Low,HH-Alert High <-Panic Low,>-Panic High,A-Abnormal,AA-Critical Abnormal Performed at: [address] [address] Bea Crespo MD, Performed at: =[facility] [id number] Seismology Technical Officer: Bea Crespo MD, Phone: [phone] Performed at: [address] [id number] Seismology Technical Officer: Bea Crespo MD, Phone: [phone] BRUSH-SPATULA CERVIX ENDOCERVIX CLINISYNCNOMS HealthcareRECURRENT VAGINITIS (HTRX)on 50-39-4243UXROJKBBB VAGINAE 20.047AbnormalNOMS HealthcareATOPOBIUM VAGINAEDetectedAbnormalNOMS Healthcare BVAB 2,3 (BACTERIAL VAGINOSIS ASSOCIATED BACTERIA 2, 3); MOBILUNCUS SPP11.196 AbnormalNOMS HealthcareBVAB 2,3 (BACTERIAL VAGINOSIS ASSOCIATED BACTERIA 2, 3); MOBILUNCUS SPPDetectedAbnormalNOMS HealthcareCANDIDA ALBICANS, PARAPSILOSIS, XJQIVQSKIW8OGSW HealthcareCANDIDA ALBICANS, PARAPSILOSIS, TROPICALISNot detected NOMS HealthcareCANDIDA TUVAUMYK6MWQB HealthcareCANDIDA GLABRATANot detectedNOMS HealthcareCANDIDA MVFXIV3WOOZ HealthcareCANDIDA KRUSEINot detectedNOMS HealthcareCHLAMYDIA XYPLDJWTFSU1USDU HealthcareCHLAMYDIA TRACHOMATISNot detected NOMS HealthcareGARDNERELLA HZBVJEAZH3KWIS HealthcareGARDNERELLA VAGINALISNot detectedNOMS HealthcareInterpretation and review of laboratory resultsAbnormal NOMS HealthcareMEGASPHAERA (TYPES 1, 2)17.75AbnormalNOMS HealthcareMEGASPHAERA (TYPES 1, 2)DetectedAbnormalNOMS HealthcareMYCOPLASMA TJEWKLOXLH0ZRLA Healthcare MYCOPLASMA GENITALIUMNot detectedNOMS HealthcareNEISSERIA LOPAXYMDMST3RMYZ HealthcareNEISSERIA GONORRHOEAENot detectedNOMS HealthcareTET B, TET M20.799 AbnormalNOMS HealthcareTET B, TET MDetectedAbnormalNOMS HealthcareTRICHOMONAS KLGSHCYAN9KAIB HealthcareTRICHOMONAS VAGINALISNot detectedNOMS HealthcareNOMS HealthcareHCG ( test) Ql (U)on 59-63-8787Xfwadonvdnrffu and review of laboratory resultsNormalNOMS HealthcarePreg Test, UrNegativeNegativeNOMS HealthcareNOMS HealthcareHCG ( test) Ql (U)on 71-94-8618Azghlhiyaijoxr and review of laboratory resultsNormalNOMS HealthcarePreg Test, UrNegative NegativeNOMS HealthcareNOMS HealthcareTBH THYROID ANTIBODIESon 03-25-2024 THYROGLOBULIN ANTIBODY<1.0NOMS HealthcareComment on above:Thyroglobulin Antibody measured by Neela Annette Methodology It should be noted that the presence of thyroglobulin antibodies may not be pathogenic nor diagnostic, especially at very low levels. The assay dividend clerk has found that four percent of individuals without evidence of thyroid disease or autoimmunity will have positive TgAb levels up to 4 IU/mL. Performed at: [address] [id number] Seismology Technical Officer: Aldo Mauricio PhD, Phone: [phone] THYROID PEROXIDASE (TPO) DW70RGBX HealthcareCLINISYNCNOMS HealthcareHCG QUALITATIVE URINEon 76-28-4062Yjyg HCG ( test) Ql (U)NegativeNEGATIVE NOMS HealthcareCLINISYNCNOMS HealthcareXR CHEST 2Von 24-46-8990[address] [address] XRay Report Signed Patient: THOMAS LÓPEZ MR#: [id number] : 1995 Acct:[id number] Age/Sex: 29 / F ADM Date: 03/24/24 Loc: LAB Attending Dr: Shiela Arrington BLEACH PACKER Ordering Physician: Shiela Arrington NP Date of Service: 03/24/24 Procedure(s): XR chest 2V Accession Number(s): [id number] cc: Shiela Arrington NP [address] [address] Patient Name: THOMAS LÓPEZ MRN: [id number] date: 1995 Sex: F Assigned Patient Location: LAB Current Patient Location: LAB Accession/Order Number: [id number] Exam Date: 03/24/2024 13:05 Report Date: 03/24/2024 [...] is essentially unchanged. Electronically authenticated by: RUFINA DAMIAN Date: 03/24/2024 15:48 Dictated By: Rufina Damian M.D. Signed By: 03/24/24 1551 DD/ 1548 TD/TT: Needle Grinder:TBHRadiology, Radiologist, - 03/24/2024 [place] [address] XRay Report Signed Patient: THOMAS LÓPEZ MR#: [id number] : 1995 Acct:[id number] Age/Sex: 29 / F ADM Date: 03/24/24 Loc: LAB Attending Dr: Shiela Arrington NP Ordering Physician: Shiela Arrington NP Date of Service: 03/24/24 Procedure(s): XR chest 2V Accession Number(s): [id number] cc: Shiela Arrington NP [address] [place] [address] Patient Name: THOMAS LÓPEZ MRN: [id number] date: 1995 Sex: F Assigned Patient Location: LAB Current Patient Location: LAB Accession/Order Number: [id number] Exam Date: 03/24/2024 13:05 Report Date: 03/24/2024 [...] is essentially unchanged. Electronically authenticated by: RUFINA DAMIAN Date: 03/24/2024 15:48 Dictated By: Rufina Damian M.D. Signed By: 03/24/24 1552 DD/ 1548 TD/TT: Needle Grinder: HENRIQUE HealthcareRadiology Study observation (narrative)[facility]woodXR CHEST 2V Ordered By: Radiologist Radiology on 33-72-0118NXNL Healthcare Work Phone: URETHRITIS/DISCHARGE PLUS VAGINITIS (HTRX)on 51-54-4626ZMRQZHNBD MGEERCN7ADHA HealthcareATOPOBIUM VAGINAENot detectedNOMS HealthcareBVAB 2,3 (BACTERIAL VAGINOSIS ASSOCIATED BACTERIA 2, 3); MOBILUNCUS RRT5UPOW HealthcareBVAB 2,3 (BACTERIAL VAGINOSIS ASSOCIATED BACTERIA 2, 3); MOBILUNCUS SPPNot detectedNOMS HealthcareCANDIDA ALBICANS, PARAPSILOSIS, FMUJVVSJGZ4YBPV HealthcareCANDIDA ALBICANS, PARAPSILOSIS, TROPICALISNot detected NOMS HealthcareCANDIDA JFPRNZPG5EDMH HealthcareCANDIDA GLABRATANot detectedNOMS HealthcareCANDIDA JFIAEQ8KIGH HealthcareCANDIDA KRUSEINot detectedNOMS HealthcareCHLAMYDIA UOWUJKRETOF5ACBD HealthcareCHLAMYDIA TRACHOMATISNot detected NOMS HealthcareGARDNERELLA HZGTSGFYH3QRZJ HealthcareGARDNERELLA VAGINALISNot detectedNOMS HealthcareMEGASPHAERA (TYPES 1, 2)0NOMS HealthcareMEGASPHAERA (TYPES 1, 2)Not detectedNOMS HealthcareMYCOPLASMA XUKSFSSCWM3ENHK Healthcare MYCOPLASMA GENITALIUMNot detectedNOMS HealthcareNEISSERIA OMUMAGJHXGE8JKUI HealthcareNEISSERIA GONORRHOEAENot detectedNOMS HealthcareTRICHOMONAS VAGINALIS0 NOMS HealthcareTRICHOMONAS VAGINALISNot detectedNOMS HealthcareNOMS Healthcare ALL CBC WITH AUTO DIFFon 81-83-3931ABUDTJFZH ABSOLUTE AUTO0.0N[facility] Basophils/100 WBC (Bld)0.4 %0.2 - 2.0 %NOMS HealthcareEosinophils/100 WBC (Bld) 2.8 %0.9 - 7.0 %[facility] KirkwoodErythrocyte distribution width (RBC) [Ratio]12.2 %11.0 - 15.0 %NOMFulton State HospitalHematocrit (Bld) [Volume fraction]39.1 %36.0 - 48.0 %[facility] KirkwoodHemoglobin (Bld) [Mass/Vol]12.9 g/dL12.0 - 16.0 g/dLSaint Joseph Hospital of KirkwoodIMMATURE GRANULOCYTES ABS AUTO0.02NOSSM [facility]Paul Health CenterImmature granulocytes/100 WBC (Bld)0.2 %0.0 - 0.5 %[facility] KirkwoodInterpretation and review of laboratory resultsAbnormalNOSSM DePaul Health CenterLYMPHOCYTES ABSOLUTE AUTO1.6 NOMFulton State HospitalLymphocytes/100 WBC (Bld)19.2 %Low20.5 - 60.0 %[facility] Health CenterH (RBC) [Entitic mass]28.5 pg26.7 - 34.0 pgSSM DePaul Health CenterHC (RBC) [Mass/Vol] 33.0 g/dL29.9 - 35.2 g/dLSSM DePaul Health CenterV (RBC) [Entitic vol]86.3 fL81.0 - 99.0 fLSaint Joseph Hospital of KirkwoodMONOCYTES ABSOLUTE AUTO0.6NOSSM [facility]Paul Health CenterMonocytes/100 WBC (Bld)6.8 %1.7 - 12.0 %[facility] KirkwoodNEUTROPHILS ABSOLUTE AUTO6.0NOSSM [facility] Neutrophils/100 WBC (Bld)70.6 %43.0 - 75.0 %[facility] KirkwoodPlatelet mean volume (Bld) [Entitic vol]10.7 fL9.5 - 13.5 fLSaint Joseph Hospital of KirkwoodTB EO #0.2[facility] TBH AUO908BBRIKindred Hospital RBC4.53NOMS [facility] WBC8.5NOSSM [facility] CLINISYNCSaint Joseph Hospital of KirkwoodPAP ACOG PANEL 2: 21 to 29on 09-06-2022..NormalThe [facility] HospitalComment on above:Result Comment: Performed at: BAPerformed By: #### [id number] #### [facility] [address] [place] [address] Dr. Chloe Muir Gdln ACOG Earenxw55-04UubogzTqnRegency Hospital Toledo on above:Performed By: #### [id number] #### [facility] [address] [place] [address] Dr. Chloe FranklinDIAGNOSIS:CommentMagruder Hospital on above: Result Comment: NEGATIVE FOR INTRAEPITHELIAL LESION OR MALIGNANCY. Performed at: BAPerformed By: #### [id number] #### [facility] [address] [place] [address] Dr. Chloe FranklinMethodology:CommentMagruder Hospital on above: Result Comment: This liquid based ThinPrep(R) pap test was screened with the use of an image guided system. Performed at: Performed By: #### [id number] #### [facility] [address] [place] [address] Dr. Chloe FranklinNote:CommentMagruder Hospital on above:Result Comment: The Pap smear is a screening test designed to aid in the detection of premalignant and malignant conditions of the uterine cervix. It is not a diagnostic procedure and should not be used as the sole means of detecting cervical cancer. Both false-positive and false-negative reports do occur. . Performed at: WBPerformed By: #### [id number] #### [facility] [address] [place] [address] Dr. Chloe FranklinPerformed by:CommentMagruder Hospital on above: Result Comment: Rohini Cole, Stemming Machine Operator (ASCP) Performed at: BAPerformed By: #### [id number] #### [facility] [address] [place] [address] Dr. Chloe FranklinReflex Criteria:CommentMagruder Hospital on above:Result Comment: The HPV DNA reflex criteria were not met with this specimen result therefore, no HPV testing was performed. . Performed at: BAPerformed By: #### [id number] #### [facility] [address] [place] [address] Dr. Chloe FranklinSpecimen adequacy:CommentNoSouthview Medical CenterComment on above:Result Comment: Satisfactory for evaluation. Endocervical and/or squamous metaplastic cells (endocervical component) are present. Performed at: BAPerformed By: #### [id number] #### [facility] [address] [address] [address] Chloe Franklin Vital Signs Date TimeVital SignValuePerforming NzukegpqsIefpcbwm81-13-8479 14:17-0400Body vzrezj900.4 Adamhipolito Romina CRENSHAW Work Phone: [facility] KirkwoodDvzlkzgycm83-72-3941 14:17-0400Body mass index (BMI) [Ratio]23.83 kg/m2Rosa Pearl PA Work Phone: [facility] KirkwoodKzfwrjgvhg37-26-8783 14:17-0400Body qejnvy38.34 kgRosa CRENSHAW Work Phone: [facility] KirkwoodKwlxvznjob75-15-4955 14:17-0400Diastolic blood iiqayrbo82 mm[Hg]Rosa Pearl PA Work Phone: [facility] KirkwoodIsccprjgri36-99-8120 14:17-0400Systolic blood seuyhend345 mm[Hg]Rosa Pearl PA Work Phone: NOSSM [facility] Health CenterDnpschpelx01-40-1786 13:28-0400Body mass index (BMI) [Ratio]20.67 kg/m2Shiela Arrington BLEACH PACKER Work Phone: [facility] KirkwoodTtyianoisv66-01-3739 13:28-0400Body temperature 98.2 [degF]Shiela Arrington BLEACH PACKER Work Phone: NOSSM [facility] Health CenterVuldkuaege74-97-5918 13:28-0400Body fcptup02.61 kgShiela Arrington BLEACH PACKER Work Phone: [facility] KirkwoodCnuuyqjwwj47-81-5061 13:28-0400Diastolic blood mm[Hg]Shiela Arrington BLEACH PACKER Work Phone: [facility] KirkwoodGuecwtcbrp37-01-6120 13:28-0400Heart rate78 /min Shiela Arrington BLEACH PACKER Work Phone: [facility] KirkwoodVxbuzpnjjc02-75-1943 13:28-0400Respiratory rate18 /minShiela Arrington BLEACH PACKER Work Phone: [facility] KirkwoodNjcfdxmkkl47-96-2236 13:28-1839AjX4% (BldA) [Mass fraction]98 %Shiela Arrington BLEACH PACKER Work Phone: noSSM DePaul Health CenterIygvevltgv35-51-6558 13:28-0400Systolic blood vuhytrbw139 mm[Hg]Shiela Arrington BLEACH PACKER Work Phone: [facility] KirkwoodYpiivupsut62-70-1477 15:55-0400Body mass index (BMI) [Ratio]22.55 kg/m2Amy Romina PA Work Phone: [facility] KirkwoodHuqtfhsfcc18-43-0760 15:55-0400Body ujiujc45.6 kg Rosa Pearl PA Work Phone: [facility] KirkwoodFefagswzfq01-22-9318 15:55-0400Diastolic blood aqutbkcl21 mm[Hg]Rosa Romina PA Work Phone: [facility] KirkwoodZohcdlpmrm82-83-2283 15:55-0400Systolic blood ojspinxr372 mm[Hg]Rosa Romina PA Work Phone: [facility] KirkwoodUotlqqnxmc58-08-6603 15:32-0500Body mass index (BMI) [Ratio]25.25 kg/m2Amy Romina PA Work Phone: [facility] KirkwoodXdughsvccx58-59-7461 15:32-0500Body ywdmbq07.73 kgAmy Cannelburg PA Work Phone: [facility] KirkwoodCocpjgmhnt78-87-8148 15:32-0500Diastolic blood mm[Hg]Rosa Romina PA Work Phone: [facility] KirkwoodCgxtyowrjc00-31-0096 15:32-0500Systolic blood zdlbisfv901 mm[Hg]Rosa Pearl PA Work Phone: [facility] KirkwoodCsfkynygfu87-81-6533 18:10-0400Body qfahti785.56 Jewell Ray Other [employer] Other 08-02-2022 18:10-0400Body mass index (BMI) [Ratio] 24.89 kg/o4LdjrplmvfElle Pavonault Other [employer] Other 08-02-2022 18:10-0400Body mspawgowcuh93.9 [degF] Elle Pavonault Other [employer] Other 08-02-2022 18:10-0400Body pkqaox54.77 kgSttaryn Pavonault Other [employer] Other 08-02-2022 18:10-0400Respiratory rate18 /minSelmer Cory Other [employer] Other 08-02-2022 18:10-3022GjT4% (BldA) [Mass fraction]97 % Elle Ray Other [employer] Other Encounters Encounter DateEncounter TypeCare ProviderFacilityStart: 06-01-2025 End: 23-51-3704Xiqvsk flowsMatthias CRENSHAW Work Phone: [facility] OBGYNStart: 06-01-2025 End: 37-22-0332Smjzip flowsheetRosa CRENSHAW Work Phone: [facility] OBGYNStart: 06-01-2025 End: 64-09-0477Qplzrpelt Result EncounterGeneric External Data ProviderNOMS External Department UnsolicitedStart: 06-01-2025 End: 87-58-7969Xbvvrjqb Result EncounterRosa CRENSHAW Work Phone: noMS External Department UnsolicitedStart: 06-01-2025 End: 37-90-0213Mowdnpk encounter procedureRosa CRENSHAW Work Phone: NOMS HealthcareStart: 06-01-2025 End: 68-89-7551Loiriqkq preventive med est patient 18-39 yrsRosa CRENSHAW Work Phone: NOWV [facility] OBGYNComment on above:Well woman exam with routine gynecological exam; Screen for STD (sexually transmitted disease); Uses controlStart: 06-01-2025 End: 90-53-5246oycqsgkuppYCH RAMEYNot AvailableStart: 03-23-2025 End: 43-26-4049Fvzfep flowsheetLisa Aichholz BLEACH PACKER Work Phone: NOMJ CWM FMStart: 03-23-2025 End: 57-30-7838Sqocul flowsheetLisa Aichholz BLEACH PACKER Work Phone: NOYW CWM FMStart: 03-23-2025 End: 37-24-2697Yekccn outpatient visit 25 minutesLisa Nury BLEACH PACKER Work Phone: NOUI CWM FMComment on above:Mood disorder (CMS/HCC) (Primary Dx); Unintentional weight loss of more than 10 pounds; Elevated serum protein levelStart: 03-23-2025 End: 50-79-2617sdftlmdylnWTCP AICHHOLZNot AvailableStart: 07-19-2024 End: 95-70-0604Icwhrt outpatient visit 15 minutesRosa CRENSHAW Work Phone: noms BCP OBComment on above:Exposure to STDStart: 07-19-2024 End: 04-58-8364wvicxheccmPSY RAMEYNot AvailableStart: 07-19-2024 End: 20-24-2027Cllbcw Samira CRENSHAW Work Phone: NOAN BCP OBStart: 07-19-2024 End: 54-29-1881Cgwtlz Samira CRENSHAW Work Phone: NOBY BCP OBStart: 03-24-2024 End: 82-85-2643Imnentlia Result EncounterLisa Aichholz [employer] Work Phone: [phone] External Department UnsolicitedStart: 03-24-2024 End: 27-58-5503Qxbqbonrl Result EncounterLisa Nury HOMAR Work Phone: noms External Department UnsolicitedStart: 12-08-2023 End: 08-70-9580Qbntdui encounter procedureRosa Romina CRENSHAW Work Phone: [facility] Work Phone: Start: 12-08-2023 End: 37-51-6363Hqekwlfi preventive med est patient 18-39 yrsAmy Romina CRENSHAW Work Phone: noms BCP OBComment on above:Well woman exam with routine gynecological exam; Vaginal discharge; STD exposure; Encounter for surveillance of contraceptive pillsStart: 30-97-2895Vkodyidmx Result EncounterGeneric External Data ProviderNOMS External Department UnsolicitedStart: 27-99-9173Ynzimuqdv Result EncounterGeneric External Data ProviderNOMS External Department UnsolicitedStart: 97-07-4537Iddenuam Result EncounterRosa Romina CRENSHAW Work Phone: noms External Department UnsolicitedStart: 12-05-2023 Chart abstractingAmy Romina CRENSHAW Work Phone: noms BCP OBStart: 08-29-2022 End: 55-16-9750auymoktvlgSB NONE LISTED REQUESTFacility:V4Lpmho: 06-08-2022 End: 74-20-8496eyxorbcjvbGknqt Keller Other no[employer] Other Start: 15-63-9713Eopdippus encounterAmber NicolaFPCelena Urgent Care Dupont RoadStart: 05-28-2022 End: 95-83-1153kqcibkjrctSpqsppptn Breault Other nortDelivered Other Start: 43-72-5925Vclawi outpatient new 20 minutes Elle RayFPCelena Urgent Care ClydeStart: 12-02-2017 End: 16-96-4521NfwfymgspvYoss KovesdiFacility:[id number] Procedures DateProcedureProcedure DetailPerforming ClinicianStart: 43-08-7174HQBJBXEON VAGINITIS (HTRX)Rosa CRENSHAW Work Phone: Start: 59-08-9806Pkdrq test visual color cmprsn methsAmy Romina CRENSHAW Work Phone: Start: 22-70-3574IDA,APTIMA HPV,AGE GDLNAmy Romina CRENSHAW Work Phone: Start: 51-09-1343Dlzps test visual color cmprsn methsLisa Aichholz [employer]ER Work Phone: Start: 78-01-7961OM CHEST 2VLisa Aichholz [employer]ER Work Phone: Start: 30-65-3067DEW THYROID ANTIBODIESLisa Aichholz [employer]ER Work Phone: Start: 57-02-9283UJV QUALITATIVE URINEShiela Aichholz [employer] Work Phone: Start: 09-31-6710VQO CBC WITH AUTO DIFFCorey Chet DO Work Phone: Start: 94-49-6908YDIOJYGGHX/DISCHARGE PLUS VAGINITIS (HTRX)Rosa CRENSHAW Work Phone: Plan of Treatment DateCare ActivityDetailAuthorStart: 06-06-2026 End: 18-06-6977Tizytcw encounter copwibzkr83/11/2026 10:00 AM EDT Procedure Visit HENRIQUE SARAVIA [address] [place], [id number] Rosa Pearl PA [address] [place] [address] HENRIQUE SINGHNStart: 06-27-2025 Influenza vaccinationNOMA HealthcareStart: 06-01-2025 End: 53-99-7195Rrwpqig encounter tgkoedeqy30/06/2025 2:00 PM EDT Office Visit HENRIQUE HOODGYN [address] [place] [phone] Rosa Pearl PA [address] [place], [place] [id number] Emily Vidales OBGYNComment on above:ArrivedStart: 05-05-2025 End: 06-77-5706Blujtpa encounter /10/2025 1:00 PM EDT Office Visit [facility] [address] [place] [phone] Shiela Arrington, [employer] [address] [place] [phone] NOMS HARRY FMStart: 03-23-2025 End: 82-63-9695WVO W Auto Differential panel - BloodCBC and differential Lab Routine Unintentional weight loss of more than 10 pounds Expected: 03/23/2025 (Approximate), Expires: 03/23/2026[facility] Work Phone: Comment on above:Expected: 03/23/2025 (Approximate), Expires: 03/23/2026Start: 03-23-2025 End: 88-53-8724Wwvdbadlsbhtb metabolic 2000 panel - Serum or PlasmaComprehensive metabolic panel Lab Routine Unintentional weight loss of more than 10 pounds Elevatedserum protein level Expected: 03/23/2025 (Approximate), Expires: 03/23/2026NOMA HealthcareComment on above:Expected: 03/23/2025 (Approximate), Expires: 03/23/2026Start: 03-23-2025 End: 74-01-0001Orbjykoepvs sedimentation rateSedimentation rate, automated Lab Routine Unintentional weight loss of more than 10 pounds Expected: 03/23/2025 (Approximate), Expires: 03/23/2026NOMS HealthcareComment on above:Expected: 03/23/2025 (Approximate), Expires: 03/23/2026Start: 03-23-2025 End: 53-57-2595Fubsxdu peroxidase and thyroglobulin antibodiesThyroid peroxidase and thyroglobulin antibodies Lab Routine Unintentional weight loss of more than 10 pounds Expected: 03/23/2025 (Approximate), Expires: 03/23/2026[facility] Healthcare Comment on above:Expected: 03/23/2025 (Approximate), Expires: 03/23/2026Start: 03-23-2025 End: 87-64-0524Peckkbdwfcv [Units/volume] in Serum or PlasmaTSH Lab Routine Unintentional weight loss of more than 10 pounds Expected: 03/23/2025 (Approximate), Expires: 03/23/2026[facility] HealthcareComment on above:Expected: 03/23/2025 (Approximate), Expires: 03/23/2026Start: 03-23-2025 End: 22-52-8268Yglgaqblh (T4) free [Mass/volume] in Serum or PlasmaT4, free Lab Routine Unintentional weight loss of more than 10 pounds Expected: 03/23/2025 (Approximate), Expires: 03/23/2026[facility] HealthcareComment on above:Expected: 03/23/2025 (Approximate), Expires: 03/23/2026Start: 03-23-2025 End: 93-26-5987Owrhejsmuivqqwzl (T3) Free [Mass/volume] in Serum or PlasmaT3, free Lab Routine Unintentional weight loss of more than 10 pounds Expected: 03/23/2025 (Approximate), Expires: 03/23/2026[facility] HealthcareComment on above: Expected: 03/23/2025 (Approximate), Expires: 03/23/2026Start: 03-23-2025 End: 41-42-9006Rnrfhcrwcz complete panel - UrineUrinalysis with reflex microscopic (clean catch) Lab Routine Unintentional weight loss of more than10 pounds Expected: 03/23/2025 (Approximate), Expires: 03/23/2026[facility] Healthcare Comment on above:Expected: 03/23/2025 (Approximate), Expires: 03/23/2026Start: 03-23-2025 End: 54-94-0568Qequojg encounter /28/2025 1:20 PM EDT Office Visit [facility] [address] [place] [address] Shiela Arrington NP [address] [place] [address] ArrivedNOMS CW FMComment on above:ArrivedStart: 09-01-2024 End: 67-57-8140Kyhyqxf encounter bbjyxxypj12/06/2024 1:00 PM EST Office Visit [facility] [address] [place] [phone] Rosa Pearl PA [address] [place], [place] [phone] [facility] OBStart: 07-19-2024 End: 32-53-9247Zyysuqt encounter zeenhynrm09/23/2024 3:30 PM EDT Office Visit [facility] [address] [place] [phone] Rosa Pearl PA [address] [place], [place] [phone] ArrivedHERRICK CAMPUS OBComment on above:ArrivedStart: 06-27-2024 Influenza vaccinationInfluenza Vaccine (#1)NOM HealthcareStart: 12-08-2023 End: 41-04-6341Izfneei encounter /12/2024 3:00 PM EST Office Visit [facility] [address] [place] [phone] Rosa Pearl PA [address] [place], [place] [phone] Well woman exam with routine gynecological exam; Vaginal discharge; STD exposureNOMS BCP OBComment on above:Well woman exam with routine gynecological exam; Vaginal discharge; STD exposureCHLAMYDIA TRACHOMATIS (GENITO/STI)CHLAMYDIA TRACHOMATIS (GENITO/STI) Lab Routine STD exposure Ordered: 12/08/2023[facility] HealthcareComment on above: Ordered: 12/08/2023HLAMYDIA TRACHOMATIS (GENITO/STI)CHLAMYDIA TRACHOMATIS (GENITO/STI) Lab Routine Exposure to STD Ordered: 07/19/2024[facility] Healthcare Comment on above:Ordered: 07/19/2024HLAMYDIA TRACHOMATIS (GENITO/STI)CHLAMYDIA TRACHOMATIS (GENITO/STI) Lab Routine Screen for STD (sexually transmitted disease) Ordered: 06/01/2025[facility] HealthcareComment on above:Ordered: 06/01/2025 Cytology Cervical or vaginal smear or scraping studyPap Smear Pathology and Cytology Routine Well woman exam with routine gynecological exam Ordered: [facility] HealthcareComment on above:Ordered: 12/08/2023ytology Cervical or vaginal smear or scraping studyPap Smear Pathology and Cytology Routine Well woman exam with routine gynecological exam Ordered: 06/01/2025[facility] Healthcare Work Phone: comment on above:Ordered: 06/01/2025Neisseria gonorrhoeae DNA [Presence] in Unspecified specimen by ANTHONY with probe detection Neisseria gonorrhea DNA probe, direct Lab Routine STD exposure Ordered: 12/08/2023[facility] HealthcareComment on above:Ordered: 12/08/2023Neisseria gonorrhoeae DNA [Presence] in Unspecified specimen by ANTHONY with probe detection Neisseria gonorrhea DNA probe, direct Lab Routine Exposure to STD Ordered: 07/19/2024[facility] HealthcareComment on above:Ordered: 07/19/2024Neisseria gonorrhoeae DNA [Presence] in Unspecified specimen by ANTHONY with probe detection Neisseria gonorrhea DNA probe, direct Lab Routine Screen for STD (sexually transmitted disease) Ordered: 06/01/2025[facility] HealthcareComment on above:Ordered: 06/01/2025SURESWAB(R) ADVANCED VAGINITIS PLUS, TMASURESWAB(R) ADVANCED VAGINITIS PLUS, TMA Pathology and Cytology Routine Vaginal discharge Ordered: 0 12/08/2023[facility] Healthcare Work Phone: comment on above:Ordered: 12/08/2023SURESWAB(R) ADVANCED VAGINITIS PLUS, TMASURESWAB(R) ADVANCED VAGINITIS PLUS, TMA Pathology and Cytology Routine Exposure to STD Ordered: 07/19/2024[facility] Work Phone: comment on above:Ordered: 07/19/2024SURESWAB(R) ADVANCED VAGINITIS PLUS, TMASURESWAB(R) ADVANCED VAGINITIS PLUS, TMA Pathology and Cytology Routine Screen for STD (sexually transmitted disease) Ordered: 06/01/2025[facility] KirkwoodComment on above:Ordered: 06/01/2025 Immunizations Immunization DateImmunizationNotesCare NxttgwvrJjglzdkn28-05-7690fgaouwdrt, injectable, quadrivalent, preservative freeRosa CRENSHAW Work Phone: [phone] [place], [place] [address]Nmafghnnag02-49-4404mzmnkgcom virus vaccine, unspecified formulationRosa CRENSHAW Work Phone: [phone] [place], [place] [address]Bdsyoafosx57-57-5130boilxcjxr, injectable, quadrivalent, preservative freeRosa CRENSHAW Work Phone: [phone] [place], [place] [address]Ajumyisnyg46-65-6714rffytsmzr, injectable, quadrivalent, preservative freeRosa CRENSHAW Work Phone: [phone]woodSnnukklvni98-84-7462virbafvtv virus vaccineRosa CRENSHAW Work Phone: [phone] [place], [place] [address]Fvxwzktxud95-55-3359uzwvqpyqs A vaccine, pediatric/adolescent dosage, 2 dose scheduleRosa CRENSHAW Work Phone: [phone] KirkwoodVdbbwwgeve80-43-0328mytdx papilloma virus vaccine, quadrivalentRosa CRENSHAW Work Phone: [phone] [place], [place] [address]Nnwsmcoxsl07-37-4844dgjwwhlysqtcu polysaccharide (groups A, C, Y and W-135) diphtheria toxoid conjugate vaccine (MCV4P)Rosa CRENSHAW Work Phone: [facility] KirkwoodQhkzzlqutq65-38-6141ziwbjeuyi A vaccine, pediatric/adolescent dosage, 2 dose scheduleRosa CRENSHAW Work Phone: [phone] [place], [place] [address]Szgyucyhjq98-96-3563qkgnw papilloma virus vaccine, quadrivalentRosa CRENSHAW Work Phone: [phone] [place], [place] [address]Fqqyyyffuq58-05-9599psjlnhb toxoid, reduced diphtheria toxoid, and acellular pertussis vaccine, adsorbedAmy Romina PA Work Phone: [phone] [place], [place] [address]Fjstfouhbt22-09-2604vtnyueclzj, tetanus toxoids and acellular pertussis vaccine, unspecified formulationAmy Romina PA Work Phone: [phone] [place], [place] [address]Echwfljwvs43-57-1059qldzaco, mumps and rubella virus vaccineAmy Romina PA Work Phone: [phone] [place], [place] [address]Cufrugprkr11-88-5081pguqwcbegn vaccine, inactivatedAmy Romina PA Work Phone: [phone] [address] StreetHnmoakznky59-37-4262aowwbjpgzb, tetanus toxoids and acellular pertussis vaccine, unspecified formulationAmy Romina PA Work Phone: [phone] [address] StreetSvfymffihx10-49-3220ehnlwhtuhpq influenzae type b vaccine, conjugate unspecified formulationAmy Romina PA Work Phone: [phone] [place], [place] [address]Jmkqnquqsd54-10-1812wwbqedc, mumps and rubella virus vaccineAmy Romina PA Work Phone: [phone] [address] StreetOtusrvnffk15-47-5169etqjkvcal poliovirus vaccine, live, oralAmy Romina PA Work Phone: [phone] [place], [place] [address]Fceqiszdzz05-87-3776chpemgdtf virus vaccineAmy Romina PA Work Phone: [phone] [place], [place] [address]Rhfjwuxgwe13-76-7933qjeaeccjiz, tetanus toxoids and acellular pertussis vaccine, unspecified formulationAmy Romina PA Work Phone: [phone] [place], [place] [address]Wabixqrdhk92-68-6780uswrfruuaoy influenzae type b conjugate and Hepatitis B vaccineAmy Romina PA Work Phone: [phone] [place], [place] [address]Spxqlttekf46-44-8437usklmiffpi, tetanus toxoids and acellular pertussis vaccine, unspecified formulationAmy Romina PA Work Phone: [phone] [place], [place] [address]Fosacozhts60-94-6864oiqniahptqj influenzae type b vaccine, conjugate unspecified formulationAmy Romina PA Work Phone: [phone] [address] StreetXlfyljuhqa38-59-2915sbcfuaphd poliovirus vaccine, live, oralAmy Romina PA Work Phone: [phone] [place], [place] [address]Yrlkmajknd25-20-1107ayujilslts, tetanus toxoids and acellular pertussis vaccine, unspecified formulationAmy Romina PA Work Phone: [facility]woodPksskzjvon95-48-2858lzmvueztsgm influenzae type b vaccine, conjugate unspecified formulationRosa Calderonrosana CRENSHAW Work Phone: [facility] KirkwoodAeytztuqdm33-96-7293oemcwiflo B vaccine, pediatric or pediatric/adolescent dosageRosa Calderonrosana CRENSHAW Work Phone: [facility] KirkwoodFibbtockki23-79-4983aswthljmp poliovirus vaccine, live, oralRosa Romina CRENSHAW Work Phone: NOSSM [facility] CenterKdrmhsnmmz25-62-2836lqbtkjrvu B vaccine, pediatric or pediatric/adolescent dosageRosa Calderonrosana CRENSHAW Work Phone: [facility] Payers DatePayer CategoryPayerPolicy ID2022Medicaid [id number] 2022Medicaid (Managed Care)[employer] Member Subscriber Plan / Payer (Effective 2022- 2024) Name: Thomas López Relation to Subscriber: Self Name: Thomas López Payer ID: Not on file Group ID: Not on file Type: Not on file Address: [address] [id number] Social History DateTypeDetailFacilityStart: 08-22-2023 End: 60-91-7429Rpz Assigned At BirthNOMA HealthcareStart: 80-82-7238Wzjccwp smoking status NHISNever smoked tobaccoNOMA HealthcareStart: 08-22-2023 End: 02-98-2822Stfxskz intakeLifetime non-drinker (finding)[facility] HealthcareStart: 08-22-2023 End: 74-15-5412Ymjlgjt of Social functionNOMA HealthcareStart: 04-23-2023 Vyekfqset74LQUO HealthcareStart: 59-58-7874Gnoaktp Commentcaffeine:noneNOMA HealthcareStart: 32-83-7655Cfq Assigned At BirthFemalSan Juan Hospital HealthcareStart: 75-31-2253Vljilo identityIdentifies as female gender (finding)[facility] Healthcare Start: 77-56-0312Hj you belong to any clubs or organizations such as samaritan groups, unions, fraternal or athletic groups, or school groups?Patient declined [facility] HealthcareAre you now , , , , never or living with a partner?SeparatedNOMS HealthcareHow often to you have a drink containing alcohol?Monthly or lessNOMS HealthcareHow many standard drinks containing alcohol do you have on a typical day?3 or 4NOMS HealthcareHow often do you have 6 or more drinks on 1 occasion?Less than monthlyNOMS HealthcareHow hard is it for you to pay for the very basics like food, housing, medical care, and heatingNot very hardNOMS HealthcareThe food that (I/we) bought just didn't last, and (I/we) didn't have money to get more.Never trueNOMS HealthcareIn the past 12 months, was there a time when you were not able to pay the mortgage or rent on time?YesNOMS HealthcareHow often do you need to have someone help you when you read instructions, pamphlets, or other written material from your doctor or pharmacy [SILS]NeverNOMS HealthcareWithin the last year, have you been raped or forced to have any kind of sexual activity by your partner or ex-partner?NoNOMS HealthcareAre you now , , , , never or living with a partner?DivorcedNOMS HealthcareHow hard is it for you to pay for the very basics like food, housing, medical care, and heating Somewhat hardNOMS HealthcareDo you feel stress - tense, restless, nervous, or anxious, or unable to sleep at night because yourmind is troubled all the time - these days [OSQ]Rather muchNOSSM [facility] Functional Status SbknLkfkuhqmwrRmujyxNopgspsx91-48-8776Nswpa score [AUDIT-C]3 03/16/2025 9:11 AM EDT Mychart, GenericNOSSM [facility] Health CenterOscdqxpfgu06-53-1039Rko often do you have a drink containing alcohol?Monthly or less 03/16/2025 9:11 AM EDT Mychart, Generic Monthly or lessNOSSM [facility] Health CenterUuqnebjsfw15-00-3290Vkc many standard drinks containing alcohol do you have on a typical day?3 or 4 03/16/2025 9:11 AM EDT Mychart, Generic 3 or 4NOSSM [facility] CenterXgkgxgwkti36-25-4906Ypo often do you have 6 or more drinks on 1 occasion?Less than monthly 03/16/2025 9:11 AM EDT Elixservehart, Generic Less than monthlySaint [facility] Hospital [facility] Clinical Notes 05-28-2022 to 06-01-2025 Note Date & PchlKlseMsxcqeoq74-59-0085 History of Present illness Narrative* DEN Patiño - 06/01/2025 2:00 PM EDT Reason for Appointment: Patient ID: Thomas López is a 30 y.o. female who presents for Gynecologic Exam Patient presents today for Annual Exam. MEDICATIONS Current Outpatient Medications Medication Instructions lamoTRIgine (LaMICtal) 25 MG tablet 1 pill at bedtime for 2 weeks, then increase to 2 pills at bedtime Lo Loestrin Fe 1 MG-10 MCG / 10 MCG tablet 1 tablet, Oral, Every morning medroxyPROGESTERone (DEPO-PROVERA) 150 mg, Intramuscular, Every 3 months omeprazole (PRILOSEC) 20 mg, Oral, Daily before breakfast, Do not crush or chew. ALLERGIES Allergies Allergen Reactions Penicillin G Other Reaction(s): unknown Penicillins PROBLEMS Active Ambulatory Problems Diagnosis Date Noted Gastroesophageal reflux disease without esophagitis 11/17/2023 Abnormal vaginal bleeding 01/29/2024 Menorrhagia with irregular cycle 01/29/2024 Pelvic congestion syndrome 01/29/2024 Attention-deficit hyperactivity disorder, combined type 01/29/2024 Unintentional weight loss of more than 10 pounds 03/17/2024 SOWMYA (generalized anxiety disorder) 03/17/2024 Elevated serum protein level 03/26/2024 Mood disorder 03/23/2025 Resolved Ambulatory Problems Diagnosis Date Noted Gastro-esophageal reflux disease without esophagitis 11/17/2023 URI, acute 01/29/2024 Yeast infection 03/26/2024 Past Medical History: Diagnosis Date Dysfunctional uterine [...] SYSTEMS Review of Systems: Review of Systems All other systems reviewed and are negative. OBJECTIVE Objective: Physical Exam Constitutional: Appearance: Normal appearance. She is well-developed. Genitourinary: Vulva normal. Cardiovascular: Rate and Rhythm: Normal rate and [...] nursing note reviewed. Exam conducted with a vacuum drum drier operator present. Vitals: Estimated body mass index is 23.83 kg/m as calculated from the following: Height as of this encounter: 5'. Weight as of this encounter: 122 lb. BP: 110/60 Patient's last menstrual period was 05/10/2025 (approximate). ASSESSMENT & PLAN ICD-10-CM 1. Well woman exam with routine gynecological exam Z01.419 Pap Smear 2. Screen for STD (sexually transmitted disease) Z11.3 SURESWAB(R) ADVANCED VAGINITIS PLUS, TMA CHLAMYDIA TRACHOMATIS (GENITO/STI) Neisseria gonorrhea DNA probe, direct 3. Uses control Z78.9 medroxyPROGESTERone (Depo-Provera) 150 MG/ML injection POCT , urine manually resulted Annual Exam: Patient presents today for an annual exam. Patient states she is doing well and has no complaints. Pap was obtained without difficulty. Orders Placed This Encounter Procedures CHLAMYDIA TRACHOMATIS (GENITO/STI) Neisseria gonorrhea DNA probe, direct POCT , urine manually resulted Pt desires to be put on depo instead of staying on the oral b/c meditation. Patient was given a test and came back negative. Depo rx was sent to pharmacy to begin taking. Follow Up: Patient is to return in one year for annual unless needed otherwise. Documented by Qing Santillan MA on behalf of: DEN Patiño documented in this encounterSaint Joseph Hospital of KirkwoodRpwutlbibj44-35-6487 History of Present illness Narrative* Shiela Arrington NP - 03/23/2025 2:15 PM EDTAssociated Problem(s): Mood disorder (CMS/HCC) Start lamictal Discussed red flag, and rash Fu in 6 weeks MDQ=negative PHQ 9=9 GAD7=19 * IGGY CUELLO - 03/23/2025 1:20 PM EDT Joints are hurting and aching all the time. Pt is having more headaches. Pt would like to talk about mood stabilizers so she is not feeling high highs and low lows. She would also like to get blood work done especially thyroid since her grandmother had graves disease. Pt is still have nausea, anxiety, and loss of appetite * Shiela Arrington, HOMAR - 03/23/2025 1:20 PM EDT Images from the original note were not [...] pain. Hard to stay focused (does have hxof adhd), +irritability and aggitation. Dx: PTSD and ADHD, no mood disorders. Does have a lot of mental illness in family, possible bipolardisorder. Does also have family hx grave's disease as well Currently works at [employer] in [place], as an Aide. No mental [...] for agitation and decreased concentration. Negative for behavioralproblems, self-injury and suicidal ideas. The patient is [...] brother, father, and sister; Cervical cancer in hermother; Eczema in her maternal grandfather; Mental illness in her brother, father, and sister; Skincancer in her maternal grandmother; Stroke in her [...] (LaMICtal) 25 MG tablet documented in this encounterSaint Joseph Hospital of KirkwoodEynifkgxfh39-24-4988 Instructions* Patient Instructions* Shiela Arrington NP - 03/23/2025 1:20 PM EDT Start lamotrigine 25mg at bedtime for 2 weeks, then increase to 2 pills for a total of 50mg Get labs checked documented in this encounterSaint Joseph Hospital of KirkwoodIbkjiirqia18-18-0976 History of Present illness Narrative* DEN Patiño - 07/19/2024 3:30 PM EDT Reason for Appointment: Patient ID: Thomas López [...] syndrome 01/29/2024 Attention-deficit hyperactivity disorder, combined type ([facility]) 01/29/2024 URI, acute 01/29/2024 Unintentional weight loss of more than 10 pounds 03/17/2024 SOWMYA (generalized anxiety disorder) ([facility]) 03/17/2024 Elevated serum protein level 03/26/2024 [...] nursing note reviewed. Exam conducted with a vacuum drum drier operator present. Vitals: Estimated body mass index is [...] behalf of: DEN Patiño documented in this encounterSaint Joseph Hospital of KirkwoodXdcrgnveqa77-89-6076 History of Present illness Narrative* DEN Patiño - 12/08/2023 3:00 PM EST Reason for Appointment: Patient ID: Thomas López [...] nursing note reviewed. Exam conducted with a vacuum drum drier operator present. Vitals: Estimated body mass index is [...] behalf of: DEN Patiño documented in this encounterSaint Joseph Hospital of KirkwoodJpdonefamu79-06-8752 Evaluation note* Encounter Date Diagnosis Assessment Notes Treatment Notes Treatment Clinical Notes May, Poison cecilio dermatitis (ICD-10 - [...] do not improve or worsen with treatment [place] [employer] Other Evaluation noteNo [facility] [employer] Other Evaluation note* Diagnosis Well woman exam with routine gynecological exam Routine gynecological examination Vaginal discharge Leukorrhea, not specified as infective STD exposure Encounter for surveillance of contraceptive pills documented in this encounter [facility] HealthcareEvaluation note* Diagnosis Exposure to STD documented in this encounter [facility] HealthcareEvaluation note* Diagnosis Unintentional weight loss of more than 10 pounds- Primary SOWMYA (generalized anxiety disorder) ([facility]/HCC) Generalized anxiety disorder Gastroesophageal reflux disease without esophagitis Esophageal reflux Mood disorder ([facility]/HCC)- Primary Unspecified episodic mood disorder Unintentional weight loss of more than 10 pounds Elevated serum protein level documented in this encounter [facility] HealthcareEvaluation note* Diagnosis Unintentional weight loss of more than 10 pounds- Primary SOWMYA (generalized anxiety disorder) Generalized anxiety disorder Gastroesophageal reflux disease without esophagitis Esophageal reflux Mood disorder- Primary Unspecified episodic mood disorder Unintentional weight loss of more than 10 pounds Elevated serum protein level Well woman exam with routine gynecological exam Routine gynecological examination Screen for STD (sexually transmitted disease) Screening examination for venereal disease Uses control documented in this encounter [facility] Healthcare Summary Purpose Family History No Family History Records FoundNo Family History Records FoundNo Family History Records Found Advance Directives No Advanced Directives Records FoundNo Advanced Directives Records FoundNo Advanced Directives Records Found Additional Source Comments INFORMATION SOURCE (unrecogn ized section and content) DATE CREATED AUTHOR 04/20/2018 [facility] DATE CREATED AUTHOR AUTHOR'S ELLE MELO 09/06/2022 [facility] DATE CREATED AUTHOR AUTHOR'S ORGANIZ ATION 06/04/2025 [facility] EPIC REASON FOR VISIT (unrecogniz ed section and content) ReasonCommentsWell Women VisitSTI ScreeningReasonCommentsSTI ScreeningReason CommentsWeight LossReasonCommentsGynecologic Exam Care Teams (unrecognized sec tion and content) Team MemberRelationshipSpecialtyStart DateEnd Date Mika Pickard MD [address] [place] [address] [facility] - [facility] Rosa Pearl PA [address] [place] [address] [place] [address] PCP - [facility]04/26/24 Shiela Arrington NP [address] [place] [address] [facility]01/29/24Team MemberRelationshipSpecialtyStart DateEnd Date Mika Pickard MD [address] [place] [phone] [facility] - [facility]01/29/24 Rosa Pearl PA [address] [place] [address] [place] [address] PCP - [facility]04/26/24 Shiela Arrington NP [address] [place] [address] [facility]01/29/24Team MemberRelationshipSpecialtyStart DateEnd Date Mika Pickard MD [address] [place] [phone] PCP - [facility]01/29/24 Rosa Pearl PA [address] [facility] [place] [address] [facility]10/27/24 Shiela Arrington, [employer]LE[employer] P[employer]ER [address] [place] [phone] [facility]01/29/24Team MemberRelationshipSpecialtyStart DateEnd Date Mika Pickard MD [address] [place] [phone] PCP - [facility]01/29/24 Rosa Pearl PA [address] [place] [address] [address] [place], [facility]11 [facility]10/27/24 Shiela Arrington, BLEACH P[employer]ER [address] [place] [address] [facility]01/29/24Team MemberRelationshipSpecialtyStart DateEnd Date Mika Pickard MD [address] [place] [phone] PCP - [facility]01/29/24 Rosa Pearl PA [address] [facility] [place] [address] [facility]10/27/24 Shiela Arrington NP [address] [place] [address] [facility]01/29/24Team MemberRelationshipSpecialtyStart DateEnd Date Mika Pickard MD [address] [place] [address] PCP - [facility]01/29/24 Rosa Pearl PA [address] [place] [address] [place] [address] [facility]10/27/24 Shiela Arrington NP [address] [place] [address] [facility]01/29/24Team MemberRelationshipSpecialtyStart DateEnd Date Mika Pickard MD [facility] - [facility]01/29/24 Rosa Pearl PA [address] [place] [address] [place] [address] [facility] Shiela Arrington NP [address] [place] [address] [facility]07/27/2412 Rosa Pearl PA [address] [place] [address] [place] [address] [facility]10/27/24 Shiela Arrington NP [facility]01/29/24 FOR RECORDS PERTAINING TO PATIENTS WHO ARE [...] BE BASED ON THE PRIMARY CLINICAL RECORDS. [facility] [employer] [facility]. provides no warranty or guarantee of the accuracy or completeness of information in this document.
[2025-09-26 10:01] LABS: Hematocrit 38.4 % (36.0-48.0); Hemoglobin 12.8 g/dL (12.0-16.0); Immature Granulocytes Abs Auto 0.01 10^3/uL (0.00-0.03); Immature Granulocytes Pct Auto 0.2 % (0.0-0.5); Lymphocytes Absolute Auto 1.1 10^3/uL (1.2-3.8); Mean Corpuscular HGB Conc 33.3 g/dL (29.9-35.2); Mean Corpuscular Hemoglobin 28.8 pg (26.7-34.0); Mean Corpuscular Volume 86.3 fL (81.0-99.0); Platelet Count 227 10^3/uL (150-450); Red Blood Count 4.45 10^6/uL (4.20-5.40); White Blood Count 5.1 10^3/uL (4.0-11.0)
[2025-09-26 10:29] LABS: Alanine Aminotransferase 25 U/L (14-59); Albumin Globulin Ratio 1.0; Albumin Level 3.6 g/dL (3.4-5.0); Alkaline Phosphatase 44 U/L (46-116); Anion Gap 11.0; Aspartate Amino Transferase 17 U/L (15-37); Blood Urea Nitrogen 11.0 mg/dL (7.0-18.0); Calcium 8.7 mg/dL (8.5-10.1); Carbon Dioxide 29.3 mmol/L (21.0-32.0); Chloride 105 mmol/L (98-107); Estimated GFR (African America >60 (>=60 mL/min/1.73m^2); Estimated GFR (Non-African Ame >60 (>=60 mL/min/1.73m^2); Free T3 2.26 pg/mL (2.18-3.98); Globulin 3.5 g/dL; Glucose 92 mg/dL (74-106); Potassium 4.3 mmol/L (3.5-5.1); Sodium 141 mmol/L (136-145); Thyroid Stimulating Hormone 0.955 uIU/mL (0.358-3.740); Total Protein 7.1 g/dL (6.4-8.2)
[2025-09-26 10:45] LABS: Glucose Urine UA NEGATIVE (NEGATIVE)
== END 2025-09-26 09:16 | disposition home or self-care (01) ==
PROVIDERS: PCP Nurse Practitioner; Visit Provider Nurse Practitioner
DX: R63.4 Abnormal weight loss (principal); R77.9 Abnormality of plasma protein, unspecified
CPT/HCPCS: 36415; 80053; 81003; 84439; 84443; 84481; 85025; 85652; 86376; 86800